=== PATIENT | female | born 1960 | race African-American/Black ===

== ENCOUNTER 2021-09-12 13:17 | Inpatient (IN) | payer SELFPAY ==
[~2021-09-12] VITALS: Ht 157.5 cm; Wt 60.2 kg
[~2021-09-12 13:17] MED LIST: OXYC1TAB15 PO
[2021-09-12 14:07] LABS: BILIRUBIN,URINE NEGATIVE (NEG); CLARITY,URINE CLOUDY; COLOR,URINE YELLOW; NITRITE,URINE NEGATIVE (NEG); PH,URINE 5.5 (<5.0-8.0); PROTEIN,URINE 30 mg/dL (NEG-TRACE); UROBILINOGEN,URINE 0.2 mg/dL (0.2 mg/dL)
[2021-09-12 14:17] LABS: BACTERIA,URINE 0 /HPF (0-FEW); RBC,URINE TNTC /HPF (0-2)
[2021-09-12 14:38] LABS: BASO % 0 % (0-3); EOS % 0 % (0-3); HEMATOCRIT 27.4 % (36.0-47.0); HEMOGLOBIN 8.5 g/dL (12.0-15.5); LYMPH # 0.7 x10^3/uL (1.0-4.8); LYMPH % 6 % (24-48); MEAN CORPUSCULAR HEMOGLOBIN 25 pg (25-35); MEAN CORPUSCULAR HGB CONC 31 g/dL (31-37); MEAN CORPUSCULAR VOLUME 80 fL (79-100); MONO # 0.8 x10^3/uL (0.0-1.1); MONO % 6 % (0-9); NEUT # 11.1 x10^3/uL (1.8-7.7); NEUT % 87 % (31-73); PLATELET COUNT 553 x10^3/uL (140-400); RED BLOOD COUNT 3.42 x10^6/uL (3.50-5.40); RED CELL DISTRIBUTION WIDTH 17.7 % (11.5-14.5); WHITE BLOOD COUNT 12.7 x10^3/uL (4.0-11.0)
[2021-09-12 14:52] LABS: ALBUMIN 2.6 g/dL (3.4-5.0); ALBUMIN/GLOBULIN RATIO 0.6 (1.0-1.7); CREATININE 1.4 mg/dL (0.6-1.0); GFR 46.4; MAGNESIUM 2.3 mg/dL (1.8-2.4); POTASSIUM 3.9 mmol/L (3.5-5.1); TOTAL BILIRUBIN 0.4 mg/dL (0.2-1.0); TOTAL PROTEIN 7.3 g/dL (6.4-8.2)
--- NOTE | 2021-09-12 14:56 | RAD ---
Exam: CT abdomen/pelvis without intravenous contrast Indication: Abdominal pain and bloating Comparison: CT abdomen pelvis 08/07/2018 Technique: Helical CT imaging performed of the abdomen and pelvis without the use of intravenous cont rast. Sagittal and coronal reformats were obtained. One or more of the following individualized dose reduction techniques were utilized for this examinat ion: 1. Automated exposure control 2. Adjustment of the mA and/or kV according to patient size 3. Use of iterative reconstruction technique. Findings: Inherently limited evaluation without intravenous contrast. Lower chest: Lung bases are clear. Heart is normal in size. Liver: Normal noncontrast appearance of the liver. Gallbladder/Biliary Tree: Normal. Pancreas: Normal. Spleen: Normal. Adrenal Glands: Normal. Kidneys/Ureters/Bladder: Kidneys are normal in size. There is mild bilateral hydronephrosis. No uroli thiasis. The bladder is markedly distended. Reproductive Organs: Uterus is anteverted. No definite adnexal mass. Stomach, small bowel, and colon: The stomach is normal. There is no small bowel obstruction. There is a right lower quadrant ostomy with a large parastomal hernia. Vasculature: Abdominal aorta is normal in caliber. Moderate calcified aortoiliac atherosclerosis. Lymph Nodes: No lymphadenopathy. Peritoneum and retroperitoneum: There is ascites in the right lower quadrant and pelvis. Bones: There is 8 mm anterolisthesis of L4 on L5. Severe disc space narrowing with endplate sclerosis and small osteophytes at L5-S1 and moderate to severe disc space narrowing at L4-L5. There is vinyl dipper ior endplate separation at both levels and small disc bulges resulting in severe left and mild right foraminal narrowing at both levels. Facet arthrosis is severe at L3-L4 and L4-L5. There is mild dextr oscoliosis of the lower thoracic spine. IMPRESSION: 1. Mild bilateral hydronephrosis and markedly distended urinary bladder without obstructing calculus . Correlate for urinary retention.. 2. Small volume ascites in the pelvis and right lower quadrant. 3. New right lower quadrant ostomy with large parastomal hernia. 4. Moderate calcified aortoiliac atherosclerosis. Electronically signed by: Yvette Wetzel MD (09/12/2021 2:53 PM) [id number]
--- NOTE | 2021-09-12 15:07 | PHYS DOC ---
Past Medical History Past Medical History: No Pertinent History Additional Past Medical Histor: Colostomy Past Surgical History: Other Additional Past Surgical Histo: colostomy Smoking Status: Never Smoker Alcohol Use: None Drug Use: None General Adult EDM: Chief Complaint: BLOOD IN URINE HPI: HPI: Patient is a 61 year old female who presents with hematuria. Patient states that symptoms started on Tuesday. Patient also reports abdominal cramping and a bloated feeling in her abdomen. Patient has a colostomy was placed in 2019. Patient denies pain with urination, burning, odor, itching, retention. Denies fever. No chest pain or shortness of breath. Denies any other medical history. Review of Systems: Review of Systems: ROS At least 10 ROS systems have been reviewed and are negative except as documented in the HPI. General: Negative except as outlined in HPI above. Skin: Negative except as outlined in HPI above. HEENT: Negative except as outlined in HPI above. Neck: Negative except as outlined in HPI above. Respiratory: Negative except as outlined in HPI above.. Cardiovascular: Negative except as outlined in HPI above. Abdomen: Negative except as outlined in HPI above. : Negative except as outlined in HPI above. Back/MSK: Negative except as outlined in HPI above. Neuro: Negative except as outlined in HPI above. Psych: Negative except as outlined in HPI above. Heart Score: C/O Chest Pain: No Risk Factors: Risk Factors: DM, Current or recent (<one month) smoker, HTN, HLP, family history of CAD, obesity. Risk Scores: Score 0 - 3: 2.5% MACE over next 6 weeks - Discharge Home Score 4 - 6: 20.3% MACE over next 6 weeks - Admit for Clinical Observation Score 7 - 10: 72.7% MACE over next 6 weeks - Early Invasive Strategies Allergies: Allergies: Allergies Coded Allergies Type Severity Reaction Last Updated Verified No Known Drug Allergies 08/08/18 No Physical Exam: PE: Constitutional: Well developed, well nourished, no acute distress, non-toxic appearance. [] HENT: Normocephalic, atraumatic, bilateral external ears normal, oropharynx moist, no oral exudates, nose normal. [] Eyes: PERRLA, EOMI, conjunctiva normal, no discharge. [] Neck: Normal range of motion, no tenderness, supple, no stridor. [] Cardiovascular:Heart rate regular rhythm, no murmur [] Lungs & Thorax: Bilateral breath sounds clear to auscultation [] Abdomen: Bowel sounds normal, distended, no tenderness, colostomy noted Skin: Warm, dry, no erythema, no rash. [] Back: No tenderness, no CVA tenderness. [] Extremities: No tenderness, no cyanosis, no clubbing, ROM intact, no edema. [] Neurologic: Alert and oriented X 3, normal motor function, normal sensory function, no focal deficits noted. [] Psychologic: Affect normal, judgement normal, mood normal. [] Current Patient Data: Labs: Laboratory Tests Test 09/12/21 13:38 09/12/21 14:26 Urine Collection Type Unknown Urine Color Yellow Urine Clarity Cloudy Urine pH 5.5 (<5.0-8.0) Urine Specific [place] 1.015 (1.000-1.030) Urine Protein 30 mg/dL (NEG-TRACE) Urine Glucose (UA) Negative mg/dL (NEG) Urine Ketones (Stick) Trace mg/dL (NEG) Urine Blood Large (NEG) Urine Nitrite Negative (NEG) Urine Bilirubin Negative (NEG) Urine Urobilinogen Dipstick 0.2 mg/dL (0.2 mg/dL) Urine Leukocyte Esterase Moderate (NEG) Urine RBC Tntc /HPF (0-2) Urine WBC 5-10 /HPF (0-4) Urine Squamous Epithelial Cells Mod /LPF Urine Bacteria 0 /HPF (0-FEW) Urine Mucus Slight /LPF White Blood Count 12.7 x10^3/uL (4.0-11.0) H Red Blood Count 3.42 x10^6/uL (3.50-5.40) L Hemoglobin 8.5 g/dL (12.0-15.5) L Hematocrit 27.4 % (36.0-47.0) L Mean Corpuscular Volume 80 fL (79-100) Mean Corpuscular Hemoglobin 25 pg (25-35) Mean Corpuscular Hemoglobin Concent 31 g/dL (31-37) Red Cell Distribution Width 17.7 % (11.5-14.5) H Platelet Count 553 x10^3/uL (140-400) H Neutrophils (%) (Auto) 87 % (31-73) H Lymphocytes (%) (Auto) 6 % (24-48) L Monocytes (%) (Auto) 6 % (0-9) Eosinophils (%) (Auto) 0 % (0-3) Basophils (%) (Auto) 0 % (0-3) Neutrophils # (Auto) 11.1 x10^3/uL (1.8-7.7) H Lymphocytes # (Auto) 0.7 x10^3/uL (1.0-4.8) L Monocytes # (Auto) 0.8 x10^3/uL (0.0-1.1) Eosinophils # (Auto) 0.0 x10^3/uL (0.0-0.7) Basophils # (Auto) 0.0 x10^3/uL (0.0-0.2) Laboratory Tests 09/12/21 14:26 Vital Signs: Vital Signs Date Time Temp Pulse Resp B/P (MAP) Pulse Ox O2 Delivery O2 Flow Rate FiO2 09/12/21 13:24 98.3 120 20 132/94 (107) 100 Room Air 98.3 EKG: EKG: Heart rate [address] elevation or depression. Read by Dr. Rodney. [] Radiology/Procedures: Radiology/Procedures: []Exam: CT abdomen/pelvis without intravenous contrast Indication: Abdominal pain and bloating Comparison: CT abdomen pelvis 08/07/2018 Technique: Helical CT imaging performed of the abdomen and pelvis without the use of intravenous contrast. Sagittal and coronal reformats were obtained. One or more of the following individualized dose reduction techniques were utilized for this examination: 1. Automated exposure control 2. Adjustment of the mA and/or kV according to patient size 3. Use of iterative reconstruction technique. Findings: Inherently limited evaluation without intravenous contrast. Lower chest: Lung bases are clear. Heart is normal in size. Liver: Normal noncontrast appearance of the liver. Gallbladder/Biliary Tree: Normal. Pancreas: Normal. Spleen: Normal. Adrenal Glands: Normal. Kidneys/Ureters/Bladder: Kidneys are normal in size. There is mild bilateral hydronephrosis. No urolithiasis. The bladder is markedly distended. Reproductive Organs: Uterus is anteverted. No definite adnexal mass. Stomach, small bowel, and colon: The stomach is normal. There is no small bowel obstruction. There is a right lower quadrant ostomy with a large parastomal hernia. Vasculature: Abdominal aorta is normal in caliber. Moderate calcified aortoiliac atherosclerosis. Lymph Nodes: No lymphadenopathy. Peritoneum and retroperitoneum: There is ascites in the right lower quadrant and pelvis. Bones: There is 8 mm anterolisthesis of L4 on L5. Severe disc space narrowing with endplate sclerosis and small osteophytes at L5-S1 and moderate to severe disc space narrowing at L4-L5. There is posterior endplate separation at both levels and small disc bulges resulting in severe left and mild right foraminal narrowing at both levels. Facet arthrosis is severe at L3-L4 and L4-L5. There is mild dextroscoliosis of the lower thoracic spine. IMPRESSION: 1. Mild bilateral hydronephrosis and markedly distended urinary bladder without obstructing calculus. Correlate for urinary retention.. 2. Small volume ascites in the pelvis and right lower quadrant. 3. New right lower quadrant ostomy with large parastomal hernia. 4. Moderate calcified aortoiliac atherosclerosis. Electronically signed by: Yvette Wetzel MD (09/12/2021 2:53 PM) [id number] DICTATED and SIGNED BY: YVETTE WETZEL MD DATE: 09/12/21 [id number] 0 Course & Med Decision Making: Course & Med Decision Making Pertinent Labs and Imaging studies reviewed. (See chart for details) [] 61-year-old female who presents with hematuria, abdominal pain and cramping. Work-up in ER consisted of labs, urinalysis, CT abdomen and pelvis. Urine is positive for leuks and large blood. Patient given Rocephin. CT abdomen pelvis showed urinary retention. Indwelling catheter placed. Pelvic ultrasound ordered to rule out any abnormalities. Patient's calcium was elevated at 12.1. BUN 21, creatinine 1.4. Platelets 553. NS bolus given. Discussed all results with patient. Contacted Dr. Worley, hospitalist. Dr. Worley was going to admit patient for urinary retention, UTI, hypercalcemia. Patient is appreciative and okay with admission plan. Pedro Disclaimer: Pedro Disclaimer: This electronic medical record was generated, in whole or in part, using a voice recognition dictation system. Departure Departure Impression: Primary Impression: Urinary retention Additional Impressions: UTI (urinary tract infection) Qualified Codes: N30.01 - Acute cystitis with hematuria Hypercalcemia Disposition: 09 ADMITTED INPATIENT Admitting Physician: SHON Condition: STABLE Referrals: NO PCP (PCP) RODDY BEAVER APRN Sep 12, 2021 15:07
[2021-09-12] MEDS ORDERED: cefTRIAXone IV Push 1 GM VIAL. IVP ONE (15:15)
[2021-09-12 15:26] LABS: CALCIUM 12.1 mg/dL (8.5-10.1)
[2021-09-12] MEDS ORDERED: IV NORMAL SALINE 1000ML BAG 1,000 ML IV ONE (15:30)
[2021-09-12] MEDS ORDERED: diphenhydrAMINE 50 MG/ML VIAL IVP PRN (16:30)
[2021-09-12] MEDS ORDERED: LORazepam 0.5 MG TABLET PO PRN (16:30)
[2021-09-12] MEDS ORDERED: ZOLPIDEM 5 MG TABLET. PO PRN (16:30)
[2021-09-12] MEDS ORDERED: DOCUSATE SODIUM 100 MG CAPSULE. PO PRN (16:30)
[2021-09-12] MEDS ORDERED: ACETAMINOPHEN 325 MG TABLET. PO PRN (16:30)
[2021-09-12] MEDS ORDERED: PROCHLORPERAZINE 10 MG/2 ML VIAL. IV PRN (16:30)
[2021-09-12] MEDS ORDERED: SENNOSIDES 8.6 MG TABLET PO PRN (16:30)
[2021-09-12] MEDS ORDERED: ONDANSETRON PF 4 MG/2 ML VIAL. IVP PRN (16:30)
[2021-09-12] MEDS ORDERED: diphenhydrAMINE HCL 25 MG CAPSULE PO PRN ×2 (16:30)
[2021-09-12] MEDS ORDERED: DEXTROSE 50% 25 GM / 50ML DISP.SYRIN. IV PRN (16:30)
--- NOTE | 2021-09-12 16:43 | PDOC1 ---
History and Physical Date of Service: DOS: DATE: 09/12/21 TIME: 16:15 Chief Complaint: Chief Complain: Bloody urine History of Present Illness: HPI: 61 year old female who presents with hematuria. Patient states that symptoms started on Tuesday. Patient also reports abdominal cramping and a bloated feeling in her abdomen. Patient has a colostomy was placed in 2019 for colonic obstruction. Denies any weight loss or chemotherapy. Pathology from surgery actually showed no evidence of malignancy. Patient denies pain with urination, burning, odor, itching, retention. Denies fever. No chest pain or shortness of breath. Denies any other medical history. Past Medical/Surgical History: PMH/PSH: Past Medical History: Diverticulitis, colovesicular fistula Past surgical history: Laparoscopic converted to open sigmoid colectomy with end colostomy, Raffi's procedure and repair of colovesicular fistula Allergies: Allergies: Coded Allergies: No Known Drug Allergies (Unverified , 08/08/18) Family History: Family History: Reviewed with no relevant findings in the chart Social History: Social History: Smoking Status: Never Smoker Alcohol Use: None Drug Use: None Current Medications: Current Medications Current Medications Ceftriaxone Sodium (Rocephin) 1 gm 1X ONCE IVP ; Start 09/12/21 at 15:15; Stop 09/12/21 at 15:16; Status DC Sodium Chloride 1,000 ml @ 1,000 mls/hr 1X ONCE IV ; Start 09/12/21 at 15:30; Stop 09/12/21 at 16:29 Sodium Chloride 1,000 ml @ 75 mls/hr [id number] IV ; Start 09/12/21 at 16:15; Stop 09/13/21 at 16:14 Active Scripts Active Percocet 5-325 Mg Tablet (Oxycodone/Acetaminophen) 1 Each Tablet 2 Tab PO PRN Q4HRS PRN ROS: Review of Systems Review of System REVIEW OF SYSTEMS: GENERAL: Denies weakness SKIN: No bruising, hair changes or rashes. EYES: No blurred, double or loss of vision. NOSE AND THROAT: No history of nosebleeds, hoarseness or sore throat. HEART: No history of palpitations, chest pain or shortness of breath on exertion. LUNGS: Denies cough, hemoptysis, wheezing or shortness of breath. GASTROINTESTINAL: Denies changes in appetite, nausea, vomiting, diarrhea or constipation. GENITOURINARY: No history of frequency, urgency, hesitancy or nocturia. NEUROLOGIC: Denies history of numbness, tingling, or tremor. PSYCHIATRIC: No history of panic, anxiety or depression. ENDOCRINE: No history of heat or cold intolerance, polyuria or polydipsia. EXTREMITIES: Denies joint pain, pain on walking or stiffness. Physical Exam: Vital Signs: Vital Signs Date Time Temp Pulse Resp B/P (MAP) Pulse Ox O2 Delivery O2 Flow Rate FiO2 09/12/21 13:24 98.3 120 20 132/94 (107) 100 Room Air 98.3 Physcial Exam: GEN: No apparent distress. Alert and oriented HEENT: Normal cephalic, atraumatic, external auditory canals are patent EYES: Extraocular muscles are intact, pupil are equally round and reactive to light and accommodation MUSCULOSKELETAL: Well developed , well nourished, good range of motion ENDOCRINE: No thyromegaly was palpated LYMPHATICS: No cervical chain or axillary nodes were noted HEMATOPOIETIC: No bruising NECK: Supple, no JVD, no thyromegaly was noted LUNGS: Clear to auscultation in all lung mustafa without rhonchi or wheezing HEART: RRR, S!, S2 present. Peripheral pulses intact, no obvious murmurs noted ABDOMEN: Soft, nontender. Positive bowel sounds, no organomegaly, normal bowel sounds EXTREMITIES: Without clubbing, cyanosis, or edema. Pedal pulses intact. Negative Homans sign NEUROLOGIC: Normal speech and tone. A&O x 3, moves all extremities, no obvious focal deficits PSYCHIATRIC: Normal affect, normal mood. Stable SKIN: No ulcerations or rashes, good skin turgor, no jaundice VASCULAR: Good capillary refill, neurovascular bundle appears to be intact Labs: Labs: Laboratory Tests Test 09/12/21 13:38 09/12/21 14:26 Urine Collection Type Unknown Urine Color Yellow Urine Clarity Cloudy Urine pH 5.5 (<5.0-8.0) Urine Specific [place] 1.015 (1.000-1.030) Urine Protein 30 mg/dL (NEG-TRACE) Urine Glucose (UA) Negative mg/dL (NEG) Urine Ketones (Stick) Trace mg/dL (NEG) Urine Blood Large (NEG) Urine Nitrite Negative (NEG) Urine Bilirubin Negative (NEG) Urine Urobilinogen Dipstick 0.2 mg/dL (0.2 mg/dL) Urine Leukocyte Esterase Moderate (NEG) Urine RBC Tntc /HPF (0-2) Urine WBC 5-10 /HPF (0-4) Urine Squamous Epithelial Cells Mod /LPF Urine Bacteria 0 /HPF (0-FEW) Urine Mucus Slight /LPF White Blood Count 12.7 x10^3/uL (4.0-11.0) Red Blood Count 3.42 x10^6/uL (3.50-5.40) Hemoglobin 8.5 g/dL (12.0-15.5) Hematocrit 27.4 % (36.0-47.0) Mean Corpuscular Volume 80 fL (79-100) Mean Corpuscular Hemoglobin 25 pg (25-35) Mean Corpuscular Hemoglobin Concent 31 g/dL (31-37) Red Cell Distribution Width 17.7 % (11.5-14.5) Platelet Count 553 x10^3/uL (140-400) Neutrophils (%) (Auto) 87 % (31-73) Lymphocytes (%) (Auto) 6 % (24-48) Monocytes (%) (Auto) 6 % (0-9) Eosinophils (%) (Auto) 0 % (0-3) Basophils (%) (Auto) 0 % (0-3) Neutrophils # (Auto) 11.1 x10^3/uL (1.8-7.7) Lymphocytes # (Auto) 0.7 x10^3/uL (1.0-4.8) Monocytes # (Auto) 0.8 x10^3/uL (0.0-1.1) Eosinophils # (Auto) 0.0 x10^3/uL (0.0-0.7) Basophils # (Auto) 0.0 x10^3/uL (0.0-0.2) Sodium Level 138 mmol/L (136-145) Potassium Level 3.9 mmol/L (3.5-5.1) Chloride Level 101 mmol/L (98-107) Carbon Dioxide Level 28 mmol/L (21-32) Anion Gap 9 (6-14) Blood Urea Nitrogen 21 mg/dL (7-20) Creatinine 1.4 mg/dL (0.6-1.0) Estimated GFR (Cockcroft-Gault) 46.4 BUN/Creatinine Ratio 15 (6-20) Glucose Level 100 mg/dL (70-99) Calcium Level 12.1 mg/dL (8.5-10.1) Magnesium Level 2.3 mg/dL (1.8-2.4) Total Bilirubin 0.4 mg/dL (0.2-1.0) Aspartate Amino Transf (AST/SGOT) 25 U/L (15-37) Alanine Aminotransferase (ALT/SGPT) 20 U/L (14-59) Alkaline Phosphatase 64 U/L (46-116) Total Protein 7.3 g/dL (6.4-8.2) Albumin 2.6 g/dL (3.4-5.0) Albumin/Globulin Ratio 0.6 (1.0-1.7) Laboratory Tests Test 09/12/21 13:38 09/12/21 14:26 Urine Collection Type Unknown Urine Color Yellow Urine Clarity Cloudy Urine pH 5.5 (<5.0-8.0) Urine Specific [place] 1.015 (1.000-1.030) Urine Protein 30 mg/dL (NEG-TRACE) Urine Glucose (UA) Negative mg/dL (NEG) Urine Ketones (Stick) Trace mg/dL (NEG) Urine Blood Large (NEG) Urine Nitrite Negative (NEG) Urine Bilirubin Negative (NEG) Urine Urobilinogen Dipstick 0.2 mg/dL (0.2 mg/dL) Urine Leukocyte Esterase Moderate (NEG) Urine RBC Tntc /HPF (0-2) Urine WBC 5-10 /HPF (0-4) Urine Squamous Epithelial Cells Mod /LPF Urine Bacteria 0 /HPF (0-FEW) Urine Mucus Slight /LPF White Blood Count 12.7 x10^3/uL (4.0-11.0) Red Blood Count 3.42 x10^6/uL (3.50-5.40) Hemoglobin 8.5 g/dL (12.0-15.5) Hematocrit 27.4 % (36.0-47.0) Mean Corpuscular Volume 80 fL (79-100) Mean Corpuscular Hemoglobin 25 pg (25-35) Mean Corpuscular Hemoglobin Concent 31 g/dL (31-37) Red Cell Distribution Width 17.7 % (11.5-14.5) Platelet Count 553 x10^3/uL (140-400) Neutrophils (%) (Auto) 87 % (31-73) Lymphocytes (%) (Auto) 6 % (24-48) Monocytes (%) (Auto) 6 % (0-9) Eosinophils (%) (Auto) 0 % (0-3) Basophils (%) (Auto) 0 % (0-3) Neutrophils # (Auto) 11.1 x10^3/uL (1.8-7.7) Lymphocytes # (Auto) 0.7 x10^3/uL (1.0-4.8) Monocytes # (Auto) 0.8 x10^3/uL (0.0-1.1) Eosinophils # (Auto) 0.0 x10^3/uL (0.0-0.7) Basophils # (Auto) 0.0 x10^3/uL (0.0-0.2) Sodium Level 138 mmol/L (136-145) Potassium Level 3.9 mmol/L (3.5-5.1) Chloride Level 101 mmol/L (98-107) Carbon Dioxide Level 28 mmol/L (21-32) Anion Gap 9 (6-14) Blood Urea Nitrogen 21 mg/dL (7-20) Creatinine 1.4 mg/dL (0.6-1.0) Estimated GFR (Cockcroft-Gault) 46.4 BUN/Creatinine Ratio 15 (6-20) Glucose Level 100 mg/dL (70-99) Calcium Level 12.1 mg/dL (8.5-10.1) Magnesium Level 2.3 mg/dL (1.8-2.4) Total Bilirubin 0.4 mg/dL (0.2-1.0) Aspartate Amino Transf (AST/SGOT) 25 U/L (15-37) Alanine Aminotransferase (ALT/SGPT) 20 U/L (14-59) Alkaline Phosphatase 64 U/L (46-116) Total Protein 7.3 g/dL (6.4-8.2) Albumin 2.6 g/dL (3.4-5.0) Albumin/Globulin Ratio 0.6 (1.0-1.7) Images: Images PROCEDURE: CT ABDOMEN PELVIS WO CONTRAST Exam: CT abdomen/pelvis without intravenous contrast Indication: Abdominal pain and bloating Comparison: CT abdomen pelvis 08/07/2018 Technique: Helical CT imaging performed of the abdomen and pelvis without the use of intravenous contrast. Sagittal and coronal reformats were obtained. One or more of the following individualized dose reduction techniques were utilized for this examination: 1. Automated exposure control 2. Adjustment of the mA and/or kV according to patient size 3. Use of iterative reconstruction technique. Findings: Inherently limited evaluation without intravenous contrast. Lower chest: Lung bases are clear. Heart is normal in size. Liver: Normal noncontrast appearance of the liver. Gallbladder/Biliary Tree: Normal. Pancreas: Normal. Spleen: Normal. Adrenal Glands: Normal. Kidneys/Ureters/Bladder: Kidneys are normal in size. There is mild bilateral hydronephrosis. No urolithiasis. The bladder is markedly distended. Reproductive Organs: Uterus is anteverted. No definite adnexal mass. Stomach, small bowel, and colon: The stomach is normal. There is no small bowel obstruction. There is a right lower quadrant ostomy with a large parastomal hernia. Vasculature: Abdominal aorta is normal in caliber. Moderate calcified aortoiliac atherosclerosis. Lymph Nodes: No lymphadenopathy. Peritoneum and retroperitoneum: There is ascites in the right lower quadrant and pelvis. Bones: There is 8 mm anterolisthesis of L4 on L5. Severe disc space narrowing with endplate sclerosis and small osteophytes at L5-S1 and moderate to severe disc space narrowing at L4-L5. There is posterior endplate separation at both levels and small disc bulges resulting in severe left and mild right foraminal narrowing at both levels. Facet arthrosis is severe at L3-L4 and L4-L5. There is mild dextroscoliosis of the lower thoracic spine. IMPRESSION: 1. Mild bilateral hydronephrosis and markedly distended urinary bladder without obstructing calculus. Correlate for urinary retention.. 2. Small volume ascites in the pelvis and right lower quadrant. 3. New right lower quadrant ostomy with large parastomal hernia. 4. Moderate calcified aortoiliac atherosclerosis. Assessment/Plan Assessment/Plan Problem List: Hematuria Anemia secondary to acute blood loss Urinary retention OSCAR due to likely postobstructive uropathy Bilateral hydronephrosis Severe hypercalcemia, possible malignancy Parastomal hernia History of colostomy for colonic obstruction Admit to hospitalist for further management Urology consult for hematuria and urinary retention General surgery consult for parastomal hernia Continue IV fluids Trend calcium, if remains elevated would consider dose of calcitonin Would obtain CT of the chest chest to complete staging Contraindicated for DVT prophylaxis Regular diet CODE STATUS full Discussed with RN and SW Disposition inpatient management as above DPOA: Kamini Araiza Justifications for Admission Other Justification SHIRA PA MD Sep 12, 2021 16:43
[2021-09-12 19:00] VITALS: BP 177/95
[2021-09-12] MEDS: IV NORMAL SALINE 1000ML BAG 1,000 ML IV SCH ×2 (20:08)
--- NOTE | 2021-09-12 21:43 | RAD ---
CT THORAX WO History: Pain. Concern for malignancy. Technique: Noncontrast CT of the chest was performed. Coronal and sagittal reconstructions were perfo rmed. Exposure: One or more of the following individualized dose reduction techniques were utilized for thi s examination: 1. Automated exposure control 2. Adjustment of the mA and/or kV according to patient size 3. Use of iterative reconstruction technique. Comparison: CT abdomen pelvis September 12, 2021. Findings: Chest: No pathologic lymphadenopathy. Mild atheromatous plaque within the aorta. Coronary artery calc ifications. No consolidation or pleural effusion. No pneumothorax. 3 mm left lower lobe pulmonary nodule (series 2 image 42). 3 mm right middle lobe pulmonary nodule (i mage 34). Upper abdomen: Unchanged mild bilateral hydronephrosis. Partially imaged right abdominal wall hernia better characterized on prior CT abdomen and pelvis. Bones: No pathologic osseous lesions. Impression: 1. No acute thoracic pathology. 2. Small pulmonary nodules. Recommend one-year follow-up chest CT without contrast if high risk. Electronically signed by: Eric Gupta DO (09/12/2021 9:41 PM) [facility] CENTERJAIMIE
--- NOTE | 2021-09-12 22:13 | EKG ---
[facility] [address] [place] [address] Test Date: 2021-09-12 Test Time: 14:18:25 Pat Name: JAMES DILLON Department: Room: [facility] Gender: F Environmental Conflict Manager: : 1960 Requested By: RODDY BEAVER Order Number: [id number] Reading MD: Shawn James Measurements Intervals [place] Rate: 90 P: 146 WY: 140 QRS: 178 QRSD: 82 T: 155 QT: 408 QTc: 504 Interpretive Statements SINUS RHYTHM T ABNORMALITY IN ANTERIOR LEADS Electronically Signed On 09-13-2021 9:21:21 WAREHOUSE CLERK by Shawn James
[2021-09-12 23:00] VITALS: BP 117/69
[2021-09-13] MEDS: IV NORMAL SALINE 1000ML BAG 1,000 ML IV SCH ×3 (00:26→12:30)
[2021-09-13 01:31] LABS: CALCIUM 10.4 mg/dL (8.5-10.1); GFR 68.4
[2021-09-13 01:34] LABS: POTASSIUM 2.8 mmol/L (3.5-5.1)
[2021-09-13] MEDS ORDERED: ELECTROLYTE (NON-ICU) PROTOCOL. MC PRN ×3 (02:15)
[2021-09-13] MEDS: POTASSIUM CHLORIDE 20 MEQ TABLET.ER. PO SCH ×2 (02:26→06:21)
[2021-09-13 03:00] VITALS: BP 138/77
[2021-09-13 07:00] VITALS: BP 157/91
[2021-09-13 08:38] LABS: CALCIUM 10.5 mg/dL (8.5-10.1); CREATININE 0.7 mg/dL (0.6-1.0); GFR 103.3; POTASSIUM 3.3 mmol/L (3.5-5.1)
--- NOTE | 2021-09-13 09:00 | PDOC2 ---
UROLOGY CONSULT Date of Service DATE: 09/13/21 TIME: 08:49 Reason for Consult Reason for Consult: hematuria/urinary retention Identification/Chief Complaint Chief Complaint retention History of Present Illness Reason for Visit: 61 year old female presented to the ER on 09/12/2021 with hematuria and urinary retention. Patient states that she started feeling bloated and cramping on Tuesday (09/07/2021). States that she has a colostomy in place and has not had output from it since then. Denies any urological history, denies frequency, urgency, dysuria, fevers, chills. UA collected in ER with large blood and pos for leuks. Negative for nitrite. CT A/P completed without contrast showing bilateral hydro and a distended bladder. Cummings catheter placed for bladder decompression and retention. Patient resting in bed comfortable at this time. No complaints. Cummings catheter with clear yellow drainage. Past Medical History Cardiovascular: No pertinent hx Pulmonary: No pertinent hx GI: No pertinent hx, Constipation Heme/Onc: No pertinent hx Hepatobiliary: No pertinent hx Psych: No pertinent hx Rheumatologic: No pertinent hx Infectious disease: No pertinent hx Past Surgical History Past Surgical History: Other (colostomy placement), No pertinent history Family History Family History: No Significant Social History No ALCOHOL: none Drugs: None Current Medications Current Medications Current Medications Acetaminophen (Tylenol) 650 mg PRN Q4HRS PRN PO TEMP OVER 100.4F OR MILD PAIN; Start 09/12/21 at 16:30 Ceftriaxone Sodium (Rocephin) 1 gm 1X ONCE IVP Last administered on 09/12/21at 16:53; Start 09/12/21 at 15:15; Stop 09/12/21 at 15:16; Status DC Dextrose (Dextrose 50%-Water Syringe) 12.5 gm PRN Q15MIN PRN IV SEE COMMENTS; Start 09/12/21 at 16:30 Diphenhydramine HCl (Benadryl) 25 mg PRN Q6HRS PRN IVP ITCHING; Start 09/12/21 at 16:30 Diphenhydramine HCl (Benadryl) 25 mg PRN Q6HRS PRN PO ITCHING; Start 09/12/21 at 16:30 Diphenhydramine HCl (Benadryl) 25 mg PRN QHS PRN PO INSOMNIA, 1st CHOICE; Start 09/12/21 at 16:30 Docusate Sodium (Colace) 100 mg PRN DAILY PRN PO HARD STOOLS; Start 09/12/21 at 16:30 Info (Non-Icu Electrolyte Protocol) 1 ea CONT PRN PRN MC PER PROTOCOL; Start 09/13/21 at 02:15 Info (Non-Icu Electrolyte Protocol) 1 ea CONT PRN PRN MC PER PROTOCOL; Start 09/13/21 at 02:15; Status UNV Info (Non-Icu Electrolyte Protocol) 1 ea CONT PRN PRN MC PER PROTOCOL; Start 09/13/21 at 02:15; Status UNV Lorazepam (Ativan Inj) 0.25 mg PRN Q4HRS PRN IV ANXIETY / AGITATION; Start 09/12/21 at 16:30 Lorazepam (Ativan) 0.5 mg PRN Q6HRS PRN PO ANXIETY / AGITATION; Start 09/12/21 at 16:30 Ondansetron HCl (Zofran) 4 mg PRN Q6HRS PRN IVP NAUSEA/VOMITING, 1st CHOICE; Start 09/12/21 at 16:30 Potassium Chloride (Klor-Con) 40 meq Q4H PO Last administered on 09/13/21at 06:21; Start 09/13/21 at 02:30; Stop 09/13/21 at 06:31; Status DC Prochlorperazine Edisylate (Compazine) 10 mg PRN Q6HRS PRN IV NAUSEA/VOMITING, 2nd CHOICE; Start 09/12/21 at 16:30 Sennosides (Senna) 17.2 mg PRN BID PRN PO CONSTIPATION; Start 09/12/21 at 16:30 Sodium Chloride 1,000 ml @ 75 mls/hr [id number] IV Last administered on 09/12/21at 20:08; Start 09/12/21 at 16:15; Stop 09/13/21 at 16:14 Sodium Chloride 1,000 ml @ 100 mls/hr Q10H IV Last administered on 09/13/21at 00:26; Start 09/12/21 at 16:30 Sodium Chloride 1,000 ml @ 1,000 mls/hr 1X ONCE IV Last administered on 09/12/21at 16:51; Start 09/12/21 at 15:30; Stop 09/12/21 at 16:29; Status DC Zolpidem Tartrate (Ambien) 2.5 mg PRN QHS PRN PO INSOMNIA, 2nd CHOICE; Start 09/12/21 at 16:30 Allergies Allergies: Coded Allergies: No Known Drug Allergies (Unverified , 08/08/18) ROS Review Of Systems: CONSTITUTIONAL: No fever or chills SKIN: No rash or itching CARDIOVASCULAR: No chest pain, syncope, palpitations, or edema RESPIRATORY: No SOB or cough GASTROINTESTINAL: No nausea, vomiting. Constipation. NEUROLOGICAL: No headaches or weakness ENDOCRINE: No cold or heat intolerance GENITOURINARY: No urgency or frequency of urination MUSCULOSKELETAL: No back pain or joint pain PSYCHIATRIC: No anxiety or depression Physical Exam Physical Exam: General: Pleasant, no acute distress, well groomed Eyes: conjunctiva anicteric, eyes full range of motion ENT: moist oral mucosa, normal dentition Neck: Trachea midline, no masses Respiratory: unlabored breathing, not using accessory muscles, no crackles or wheezes Abdomen: nontender, nondistended, no hepatosplenomegaly, no masses. Colostomy in place. Skin: no rashes or skin lesions on visualized skin Psych: normal mood, affect. Alert and oriented x 3. : Cummings catheter in place draining well with clear yellow urine. Vitals VITALS Vital Signs Date Time Temp Pulse Resp B/P (MAP) Pulse Ox O2 Delivery O2 Flow Rate FiO2 09/13/21 03:00 99.1 85 14 138/77 (97) 96 Room Air 99.1 Labs Labs Laboratory Tests Test 09/12/21 13:38 09/12/21 14:26 09/13/21 01:00 09/13/21 06:20 Urine Collection Type Unknown Urine Color Yellow Urine Clarity Cloudy Urine pH 5.5 (<5.0-8.0) Urine Specific Sunol 1.015 (1.000-1.030) Urine Protein 30 mg/dL (NEG-TRACE) Urine Glucose (UA) Negative mg/dL (NEG) Urine Ketones (Stick) Trace mg/dL (NEG) Urine Blood Large (NEG) Urine Nitrite Negative (NEG) Urine Bilirubin Negative (NEG) Urine Urobilinogen Dipstick 0.2 mg/dL (0.2 mg/dL) Urine Leukocyte Esterase Moderate (NEG) Urine RBC Tntc /HPF (0-2) Urine WBC 5-10 /HPF (0-4) Urine Squamous Epithelial Cells Mod /LPF Urine Bacteria 0 /HPF (0-FEW) Urine Mucus Slight /LPF White Blood Count 12.7 x10^3/uL (4.0-11.0) Red Blood Count 3.42 x10^6/uL (3.50-5.40) Hemoglobin 8.5 g/dL (12.0-15.5) Hematocrit 27.4 % (36.0-47.0) Mean Corpuscular Volume 80 fL (79-100) Mean Corpuscular Hemoglobin 25 pg (25-35) Mean Corpuscular Hemoglobin Concent 31 g/dL (31-37) Red Cell Distribution Width 17.7 % (11.5-14.5) Platelet Count 553 x10^3/uL (140-400) Neutrophils (%) (Auto) 87 % (31-73) Lymphocytes (%) (Auto) 6 % (24-48) Monocytes (%) (Auto) 6 % (0-9) Eosinophils (%) (Auto) 0 % (0-3) Basophils (%) (Auto) 0 % (0-3) Neutrophils # (Auto) 11.1 x10^3/uL (1.8-7.7) Lymphocytes # (Auto) 0.7 x10^3/uL (1.0-4.8) Monocytes # (Auto) 0.8 x10^3/uL (0.0-1.1) Eosinophils # (Auto) 0.0 x10^3/uL (0.0-0.7) Basophils # (Auto) 0.0 x10^3/uL (0.0-0.2) Sodium Level 138 mmol/L (136-145) 139 mmol/L (136-145) 142 mmol/L (136-145) Potassium Level 3.9 mmol/L (3.5-5.1) 2.8 mmol/L (3.5-5.1) 3.3 mmol/L (3.5-5.1) Chloride Level 101 mmol/L (98-107) 104 mmol/L (98-107) 106 mmol/L (98-107) Carbon Dioxide Level 28 mmol/L (21-32) 32 mmol/L (21-32) 29 mmol/L (21-32) Anion Gap 9 (6-14) 3 (6-14) 7 (6-14) Blood Urea Nitrogen 21 mg/dL (7-20) 18 mg/dL (7-20) 13 mg/dL (7-20) Creatinine 1.4 mg/dL (0.6-1.0) 1.0 mg/dL (0.6-1.0) 0.7 mg/dL (0.6-1.0) Estimated GFR (Cockcroft-Gault) 46.4 68.4 103.3 BUN/Creatinine Ratio 15 (6-20) Glucose Level 100 mg/dL (70-99) 110 mg/dL (70-99) 78 mg/dL (70-99) Calcium Level 12.1 mg/dL (8.5-10.1) 10.4 mg/dL (8.5-10.1) 10.5 mg/dL (8.5-10.1) Magnesium Level 2.3 mg/dL (1.8-2.4) Total Bilirubin 0.4 mg/dL (0.2-1.0) Aspartate Amino Transf (AST/SGOT) 25 U/L (15-37) Alanine Aminotransferase (ALT/SGPT) 20 U/L (14-59) Alkaline Phosphatase 64 U/L (46-116) Total Protein 7.3 g/dL (6.4-8.2) Albumin 2.6 g/dL (3.4-5.0) Albumin/Globulin Ratio 0.6 (1.0-1.7) Laboratory Tests Test 09/12/21 13:38 09/12/21 14:26 09/13/21 01:00 09/13/21 06:20 Urine Collection Type Unknown Urine Color Yellow Urine Clarity Cloudy Urine pH 5.5 (<5.0-8.0) Urine Specific Sunol 1.015 (1.000-1.030) Urine Protein 30 mg/dL (NEG-TRACE) Urine Glucose (UA) Negative mg/dL (NEG) Urine Ketones (Stick) Trace mg/dL (NEG) Urine Blood Large (NEG) Urine Nitrite Negative (NEG) Urine Bilirubin Negative (NEG) Urine Urobilinogen Dipstick 0.2 mg/dL (0.2 mg/dL) Urine Leukocyte Esterase Moderate (NEG) Urine RBC Tntc /HPF (0-2) Urine WBC 5-10 /HPF (0-4) Urine Squamous Epithelial Cells Mod /LPF Urine Bacteria 0 /HPF (0-FEW) Urine Mucus Slight /LPF White Blood Count 12.7 x10^3/uL (4.0-11.0) Red Blood Count 3.42 x10^6/uL (3.50-5.40) Hemoglobin 8.5 g/dL (12.0-15.5) Hematocrit 27.4 % (36.0-47.0) Mean Corpuscular Volume 80 fL (79-100) Mean Corpuscular Hemoglobin 25 pg (25-35) Mean Corpuscular Hemoglobin Concent 31 g/dL (31-37) Red Cell Distribution Width 17.7 % (11.5-14.5) Platelet Count 553 x10^3/uL (140-400) Neutrophils (%) (Auto) 87 % (31-73) Lymphocytes (%) (Auto) 6 % (24-48) Monocytes (%) (Auto) 6 % (0-9) Eosinophils (%) (Auto) 0 % (0-3) Basophils (%) (Auto) 0 % (0-3) Neutrophils # (Auto) 11.1 x10^3/uL (1.8-7.7) Lymphocytes # (Auto) 0.7 x10^3/uL (1.0-4.8) Monocytes # (Auto) 0.8 x10^3/uL (0.0-1.1) Eosinophils # (Auto) 0.0 x10^3/uL (0.0-0.7) Basophils # (Auto) 0.0 x10^3/uL (0.0-0.2) Sodium Level 138 mmol/L (136-145) 139 mmol/L (136-145) 142 mmol/L (136-145) Potassium Level 3.9 mmol/L (3.5-5.1) 2.8 mmol/L (3.5-5.1) 3.3 mmol/L (3.5-5.1) Chloride Level 101 mmol/L (98-107) 104 mmol/L (98-107) 106 mmol/L (98-107) Carbon Dioxide Level 28 mmol/L (21-32) 32 mmol/L (21-32) 29 mmol/L (21-32) Anion Gap 9 (6-14) 3 (6-14) 7 (6-14) Blood Urea Nitrogen 21 mg/dL (7-20) 18 mg/dL (7-20) 13 mg/dL (7-20) Creatinine 1.4 mg/dL (0.6-1.0) 1.0 mg/dL (0.6-1.0) 0.7 mg/dL (0.6-1.0) Estimated GFR (Cockcroft-Gault) 46.4 68.4 103.3 BUN/Creatinine Ratio 15 (6-20) Glucose Level 100 mg/dL (70-99) 110 mg/dL (70-99) 78 mg/dL (70-99) Calcium Level 12.1 mg/dL (8.5-10.1) 10.4 mg/dL (8.5-10.1) 10.5 mg/dL (8.5-10.1) Magnesium Level 2.3 mg/dL (1.8-2.4) Total Bilirubin 0.4 mg/dL (0.2-1.0) Aspartate Amino Transf (AST/SGOT) 25 U/L (15-37) Alanine Aminotransferase (ALT/SGPT) 20 U/L (14-59) Alkaline Phosphatase 64 U/L (46-116) Total Protein 7.3 g/dL (6.4-8.2) Albumin 2.6 g/dL (3.4-5.0) Albumin/Globulin Ratio 0.6 (1.0-1.7) Assessment/Plan Assessment/Plan ---Hematuria On assessment, urine is clear yellow. CT A/P with bilateral hydro and distended bladder. No evidence of stones. UA with large blood, pos leuks neg nitrites. Will need cystoscopy outpatient to complete hematuria workup. Hgb stable at 8.5 on admission. Recheck today was 7.1. Doubtful that significant hemoglobin drop is due to patients hematuria as urine output is clear and yellow. Will defer to to primary if they want an infusion. Patient not symptomatic at this time. ---Retention Cummings in place. Most likely caused from constipation. Bowel management per primary. Once constipation resolved, can attempt voiding trial as urine is clear. D/w nursing. ---UTI Possible UTI on UA, could be contaminated. Recommended continued antibiotics until culture results. Culture specific antibiotics for 10-14 days. ---OSCAR Cr on admission was 1.4. Improved to 1 following bladder decompression. Patient will need to follow up with urology for cytoscopy. Discussed this with patient and she is agreeable. Call urology with any concerns. ILAN ABAD APRN Sep 13, 2021 09:00
--- NOTE | 2021-09-13 09:42 | PDOC2 ---
CONSULT Date of Consult Date of Consult DATE: 09/13/21 TIME: 09:38 Reason for Consult Reason for Consult: Parastomal hernia Referring Physician Referring Physician: Meir Identification/Chief Complaint Chief Complaint Blood in the urine decreased ostomy output Source Source: Chart review, Patient History of Present Illness Reason for Visit: 61-year-old female who is status post Holly's procedure for colovesical fistula sometime ago states that this week she started developing discoloration of her urine and difficulty with passing urine that is why she came to the hospital. Cummings catheter was placed at that time she is resting comfortably in bed today. She also states that she is having decreased output from her ostomy although she denies any abdominal pain no nausea vomiting has had no decrease in her appetite Past Medical History Cardiovascular: No pertinent hx Pulmonary: No pertinent hx GI: No pertinent hx, Constipation Heme/Onc: No pertinent hx Hepatobiliary: No pertinent hx Psych: No pertinent hx Rheumatologic: No pertinent hx Infectious disease: No pertinent hx Past Surgical History Past Surgical History: Other (colostomy placement), No pertinent history Family History Family History: No Significant Social History No ALCOHOL: none Drugs: None Current Problem List Problem List Problems Medical Problems: (1) Hypercalcemia Status: Acute (2) Urinary retention Status: Acute (3) UTI (urinary tract infection) Status: Acute Current Medications Current Medications Current Medications Ceftriaxone Sodium (Rocephin) 1 gm 1X ONCE IVP Last administered on 09/12/21at 16:53; Start 09/12/21 at 15:15; Stop 09/12/21 at 15:16; Status DC Sodium Chloride 1,000 ml @ 1,000 mls/hr 1X ONCE IV Last administered on 09/12/21at 16:51; Start 09/12/21 at 15:30; Stop 09/12/21 at 16:29; Status DC Sodium Chloride 1,000 ml @ 75 mls/hr [id number] IV Last administered on 09/12/21at 20:08; Start 09/12/21 at 16:15; Stop 09/13/21 at 16:14 Sennosides (Senna) 17.2 mg PRN BID PRN PO CONSTIPATION; Start 09/12/21 at 16:30 Docusate Sodium (Colace) 100 mg PRN DAILY PRN PO HARD STOOLS; Start 09/12/21 at 16:30 Ondansetron HCl (Zofran) 4 mg PRN Q6HRS PRN IVP NAUSEA/VOMITING, 1st CHOICE; Start 09/12/21 at 16:30 Dextrose (Dextrose 50%-Water Syringe) 12.5 gm PRN Q15MIN PRN IV SEE COMMENTS; Start 09/12/21 at 16:30 Sodium Chloride 1,000 ml @ 100 mls/hr Q10H IV Last administered on 09/13/21at 00:26; Start 09/12/21 at 16:30 Acetaminophen (Tylenol) 650 mg PRN Q4HRS PRN PO TEMP OVER 100.4F OR MILD PAIN; Start 09/12/21 at 16:30 Lorazepam (Ativan) 0.5 mg PRN Q6HRS PRN PO ANXIETY / AGITATION; Start 09/12/21 at 16:30 Lorazepam (Ativan Inj) 0.25 mg PRN Q4HRS PRN IV ANXIETY / AGITATION; Start 09/12/21 at 16:30 Prochlorperazine Edisylate (Compazine) 10 mg PRN Q6HRS PRN IV NAUSEA/VOMITING, 2nd CHOICE; Start 09/12/21 at 16:30 Diphenhydramine HCl (Benadryl) 25 mg PRN Q6HRS PRN IVP ITCHING; Start 09/12/21 at 16:30 Diphenhydramine HCl (Benadryl) 25 mg PRN Q6HRS PRN PO ITCHING; Start 09/12/21 at 16:30 Diphenhydramine HCl (Benadryl) 25 mg PRN QHS PRN PO INSOMNIA, 1st CHOICE; Start 09/12/21 at 16:30 Zolpidem Tartrate (Ambien) 2.5 mg PRN QHS PRN PO INSOMNIA, 2nd CHOICE; Start 09/12/21 at 16:30 Info (Non-Icu Electrolyte Protocol) 1 ea CONT PRN PRN MC PER PROTOCOL; Start 09/13/21 at 02:15 Info (Non-Icu Electrolyte Protocol) 1 ea CONT PRN PRN MC PER PROTOCOL; Start 09/13/21 at 02:15; Status UNV Info (Non-Icu Electrolyte Protocol) 1 ea CONT PRN PRN MC PER PROTOCOL; Start 09/13/21 at 02:15; Status UNV Potassium Chloride (Klor-Con) 40 meq Q4H PO Last administered on 09/13/21at 06:21; Start 09/13/21 at 02:30; Stop 09/13/21 at 06:31; Status DC Active Scripts Active Percocet 5-325 Mg Tablet (Oxycodone/Acetaminophen) 1 Each Tablet 2 Tab PO PRN Q4HRS PRN Allergies Allergies: Coded Allergies: No Known Drug Allergies (Unverified , 08/08/18) ROS Genitourinary: YES Retention Physical Exam General: Alert, Oriented X3, Cooperative, No acute distress HEENT: Atraumatic, EOMI Lungs: Clear to auscultation, Normal air movement Heart: Regular rate, No murmurs Abdomen: Normal bowel sounds, Soft, No tenderness, Other (Ostomy is pink and viable gas within the ostomy bag minimal stool nontender to palpation) Extremities: No edema Skin: No significant lesion Neuro: Normal speech Psych/Mental Status: Mental status NL Vitals VITALS Vital Signs Date Time Temp Pulse Resp B/P (MAP) Pulse Ox O2 Delivery O2 Flow Rate FiO2 09/13/21 03:00 99.1 85 14 138/77 (97) 96 Room Air 99.1 Labs Labs Laboratory Tests Test 09/12/21 13:38 09/12/21 14:26 09/13/21 01:00 09/13/21 06:20 Urine Collection Type Unknown Urine Color Yellow Urine Clarity Cloudy Urine pH 5.5 (<5.0-8.0) Urine Specific Sulphur 1.015 (1.000-1.030) Urine Protein 30 mg/dL (NEG-TRACE) Urine Glucose (UA) Negative mg/dL (NEG) Urine Ketones (Stick) Trace mg/dL (NEG) Urine Blood Large (NEG) Urine Nitrite Negative (NEG) Urine Bilirubin Negative (NEG) Urine Urobilinogen Dipstick 0.2 mg/dL (0.2 mg/dL) Urine Leukocyte Esterase Moderate (NEG) Urine RBC Tntc /HPF (0-2) Urine WBC 5-10 /HPF (0-4) Urine Squamous Epithelial Cells Mod /LPF Urine Bacteria 0 /HPF (0-FEW) Urine Mucus Slight /LPF White Blood Count 12.7 x10^3/uL (4.0-11.0) Red Blood Count 3.42 x10^6/uL (3.50-5.40) Hemoglobin 8.5 g/dL (12.0-15.5) Hematocrit 27.4 % (36.0-47.0) Mean Corpuscular Volume 80 fL (79-100) Mean Corpuscular Hemoglobin 25 pg (25-35) Mean Corpuscular Hemoglobin Concent 31 g/dL (31-37) Red Cell Distribution Width 17.7 % (11.5-14.5) Platelet Count 553 x10^3/uL (140-400) Neutrophils (%) (Auto) 87 % (31-73) Lymphocytes (%) (Auto) 6 % (24-48) Monocytes (%) (Auto) 6 % (0-9) Eosinophils (%) (Auto) 0 % (0-3) Basophils (%) (Auto) 0 % (0-3) Neutrophils # (Auto) 11.1 x10^3/uL (1.8-7.7) Lymphocytes # (Auto) 0.7 x10^3/uL (1.0-4.8) Monocytes # (Auto) 0.8 x10^3/uL (0.0-1.1) Eosinophils # (Auto) 0.0 x10^3/uL (0.0-0.7) Basophils # (Auto) 0.0 x10^3/uL (0.0-0.2) Sodium Level 138 mmol/L (136-145) 139 mmol/L (136-145) 142 mmol/L (136-145) Potassium Level 3.9 mmol/L (3.5-5.1) 2.8 mmol/L (3.5-5.1) 3.3 mmol/L (3.5-5.1) Chloride Level 101 mmol/L (98-107) 104 mmol/L (98-107) 106 mmol/L (98-107) Carbon Dioxide Level 28 mmol/L (21-32) 32 mmol/L (21-32) 29 mmol/L (21-32) Anion Gap 9 (6-14) 3 (6-14) 7 (6-14) Blood Urea Nitrogen 21 mg/dL (7-20) 18 mg/dL (7-20) 13 mg/dL (7-20) Creatinine 1.4 mg/dL (0.6-1.0) 1.0 mg/dL (0.6-1.0) 0.7 mg/dL (0.6-1.0) Estimated GFR (Cockcroft-Gault) 46.4 68.4 103.3 BUN/Creatinine Ratio 15 (6-20) Glucose Level 100 mg/dL (70-99) 110 mg/dL (70-99) 78 mg/dL (70-99) Calcium Level 12.1 mg/dL (8.5-10.1) 10.4 mg/dL (8.5-10.1) 10.5 mg/dL (8.5-10.1) Magnesium Level 2.3 mg/dL (1.8-2.4) Total Bilirubin 0.4 mg/dL (0.2-1.0) Aspartate Amino Transf (AST/SGOT) 25 U/L (15-37) Alanine Aminotransferase (ALT/SGPT) 20 U/L (14-59) Alkaline Phosphatase 64 U/L (46-116) Total Protein 7.3 g/dL (6.4-8.2) Albumin 2.6 g/dL (3.4-5.0) Albumin/Globulin Ratio 0.6 (1.0-1.7) Laboratory Tests Test 09/12/21 13:38 09/12/21 14:26 09/13/21 01:00 09/13/21 06:20 Urine Collection Type Unknown Urine Color Yellow Urine Clarity Cloudy Urine pH 5.5 (<5.0-8.0) Urine Specific [place]ph[place] 1.015 (1.000-1.030) Urine Protein 30 mg/dL (NEG-TRACE) Urine Glucose (UA) Negative mg/dL (NEG) Urine Ketones (Stick) Trace mg/dL (NEG) Urine Blood Large (NEG) Urine Nitrite Negative (NEG) Urine Bilirubin Negative (NEG) Urine Urobilinogen Dipstick 0.2 mg/dL (0.2 mg/dL) Urine Leukocyte Esterase Moderate (NEG) Urine RBC Tntc /HPF (0-2) Urine WBC 5-10 /HPF (0-4) Urine Squamous Epithelial Cells Mod /LPF Urine Bacteria 0 /HPF (0-FEW) Urine Mucus Slight /LPF White Blood Count 12.7 x10^3/uL (4.0-11.0) Red Blood Count 3.42 x10^6/uL (3.50-5.40) Hemoglobin 8.5 g/dL (12.0-15.5) Hematocrit 27.4 % (36.0-47.0) Mean Corpuscular Volume 80 fL (79-100) Mean Corpuscular Hemoglobin 25 pg (25-35) Mean Corpuscular Hemoglobin Concent 31 g/dL (31-37) Red Cell Distribution Width 17.7 % (11.5-14.5) Platelet Count 553 x10^3/uL (140-400) Neutrophils (%) (Auto) 87 % (31-73) Lymphocytes (%) (Auto) 6 % (24-48) Monocytes (%) (Auto) 6 % (0-9) Eosinophils (%) (Auto) 0 % (0-3) Basophils (%) (Auto) 0 % (0-3) Neutrophils # (Auto) 11.1 x10^3/uL (1.8-7.7) Lymphocytes # (Auto) 0.7 x10^3/uL (1.0-4.8) Monocytes # (Auto) 0.8 x10^3/uL (0.0-1.1) Eosinophils # (Auto) 0.0 x10^3/uL (0.0-0.7) Basophils # (Auto) 0.0 x10^3/uL (0.0-0.2) Sodium Level 138 mmol/L (136-145) 139 mmol/L (136-145) 142 mmol/L (136-145) Potassium Level 3.9 mmol/L (3.5-5.1) 2.8 mmol/L (3.5-5.1) 3.3 mmol/L (3.5-5.1) Chloride Level 101 mmol/L (98-107) 104 mmol/L (98-107) 106 mmol/L (98-107) Carbon Dioxide Level 28 mmol/L (21-32) 32 mmol/L (21-32) 29 mmol/L (21-32) Anion Gap 9 (6-14) 3 (6-14) 7 (6-14) Blood Urea Nitrogen 21 mg/dL (7-20) 18 mg/dL (7-20) 13 mg/dL (7-20) Creatinine 1.4 mg/dL (0.6-1.0) 1.0 mg/dL (0.6-1.0) 0.7 mg/dL (0.6-1.0) Estimated GFR (Cockcroft-Gault) 46.4 68.4 103.3 BUN/Creatinine Ratio 15 (6-20) Glucose Level 100 mg/dL (70-99) 110 mg/dL (70-99) 78 mg/dL (70-99) Calcium Level 12.1 mg/dL (8.5-10.1) 10.4 mg/dL (8.5-10.1) 10.5 mg/dL (8.5-10.1) Magnesium Level 2.3 mg/dL (1.8-2.4) Total Bilirubin 0.4 mg/dL (0.2-1.0) Aspartate Amino Transf (AST/SGOT) 25 U/L (15-37) Alanine Aminotransferase (ALT/SGPT) 20 U/L (14-59) Alkaline Phosphatase 64 U/L (46-116) Total Protein 7.3 g/dL (6.4-8.2) Albumin 2.6 g/dL (3.4-5.0) Albumin/Globulin Ratio 0.6 (1.0-1.7) Images Images CT scan of her abdomen does show a fairly large parastomal hernia no evidence of obstruction Assessment/Plan Assessment/Plan Urinary retention Decreased stool output from ostomy likely constipation Parastomal hernia, not causing any bowel obstruction this can be evaluated electively when she is discharged KASSI WHITAKER MD Sep 13, 2021 09:41
[2021-09-13 09:53] LABS: BASO # 0.1 x10^3/uL (0.0-0.2); BASO % 1 % (0-3); EOS # 0.2 x10^3/uL (0.0-0.7); EOS % 2 % (0-3); HEMATOCRIT 23.3 % (36.0-47.0); HEMOGLOBIN 7.1 g/dL (12.0-15.5); LYMPH # 1.2 x10^3/uL (1.0-4.8); LYMPH % 15 % (24-48); MEAN CORPUSCULAR HEMOGLOBIN 25 pg (25-35); MEAN CORPUSCULAR HGB CONC 30 g/dL (31-37); MEAN CORPUSCULAR VOLUME 81 fL (79-100); MONO # 0.7 x10^3/uL (0.0-1.1); MONO % 8 % (0-9); NEUT # 6.1 x10^3/uL (1.8-7.7); NEUT % 74 % (31-73); PLATELET COUNT 431 x10^3/uL (140-400); RED BLOOD COUNT 2.89 x10^6/uL (3.50-5.40); RED CELL DISTRIBUTION WIDTH 17.7 % (11.5-14.5); WHITE BLOOD COUNT 8.1 x10^3/uL (4.0-11.0)
[2021-09-13 11:00] VITALS: BP 105/49
--- NOTE | 2021-09-13 11:10 | PDOC ---
[employer] PROGRESS NOTE Date of Service DOS: DATE: 09/13/21 TIME: 11:03 Chief Complaint Chief Complaint blood in urine History of Present Illness History of Present Illness 09/13/21: Patient seen and examined Chart Reviewed Discussed with RN Patient doing well Vitals/I&O Vitals/I&O: Vital Signs Date Time Temp Pulse Resp B/P (MAP) Pulse Ox O2 Delivery O2 Flow Rate FiO2 09/13/21 08:00 Room Air 09/13/21 07:00 99.5 89 18 157/91 (113) 98 99.5 I & O 09/12/21 09/12/21 09/13/21 15:00 23:00 07:00 Intake Total 200 ml 650 ml Output Total 1200 ml Balance 200 ml -550 ml Physical Exam General: Alert, Oriented X3, Cooperative, No acute distress Heart: Regular rate, No murmurs Lungs: Clear Abdomen: Normal bowel sounds, Soft, No tenderness, Other (Ostomy is pink and viable gas within the ostomy bag minimal stool nontender to palpation) Extremities: No edema Skin: No significant lesion Labs Labs: Laboratory Tests Test 09/12/21 13:38 09/12/21 14:26 09/13/21 01:00 09/13/21 06:20 Urine Collection Type Unknown Urine Color Yellow Urine Clarity Cloudy Urine pH 5.5 (<5.0-8.0) Urine Specific [place] 1.015 (1.000-1.030) Urine Protein 30 mg/dL (NEG-TRACE) Urine Glucose (UA) Negative mg/dL (NEG) Urine Ketones (Stick) Trace mg/dL (NEG) Urine Blood Large (NEG) Urine Nitrite Negative (NEG) Urine Bilirubin Negative (NEG) Urine Urobilinogen Dipstick 0.2 mg/dL (0.2 mg/dL) Urine Leukocyte Esterase Moderate (NEG) Urine RBC Tntc /HPF (0-2) Urine WBC 5-10 /HPF (0-4) Urine Squamous Epithelial Cells Mod /LPF Urine Bacteria 0 /HPF (0-FEW) Urine Mucus Slight /LPF White Blood Count 12.7 x10^3/uL (4.0-11.0) 8.1 x10^3/uL (4.0-11.0) Red Blood Count 3.42 x10^6/uL (3.50-5.40) 2.89 x10^6/uL (3.50-5.40) Hemoglobin 8.5 g/dL (12.0-15.5) 7.1 g/dL (12.0-15.5) Hematocrit 27.4 % (36.0-47.0) 23.3 % (36.0-47.0) Mean Corpuscular Volume 80 fL (79-100) 81 fL (79-100) Mean Corpuscular Hemoglobin 25 pg (25-35) 25 pg (25-35) Mean Corpuscular Hemoglobin Concent 31 g/dL (31-37) 30 g/dL (31-37) Red Cell Distribution Width 17.7 % (11.5-14.5) 17.7 % (11.5-14.5) Platelet Count 553 x10^3/uL (140-400) 431 x10^3/uL (140-400) Neutrophils (%) (Auto) 87 % (31-73) 74 % (31-73) Lymphocytes (%) (Auto) 6 % (24-48) 15 % (24-48) Monocytes (%) (Auto) 6 % (0-9) 8 % (0-9) Eosinophils (%) (Auto) 0 % (0-3) 2 % (0-3) Basophils (%) (Auto) 0 % (0-3) 1 % (0-3) Neutrophils # (Auto) 11.1 x10^3/uL (1.8-7.7) 6.1 x10^3/uL (1.8-7.7) Lymphocytes # (Auto) 0.7 x10^3/uL (1.0-4.8) 1.2 x10^3/uL (1.0-4.8) Monocytes # (Auto) 0.8 x10^3/uL (0.0-1.1) 0.7 x10^3/uL (0.0-1.1) Eosinophils # (Auto) 0.0 x10^3/uL (0.0-0.7) 0.2 x10^3/uL (0.0-0.7) Basophils # (Auto) 0.0 x10^3/uL (0.0-0.2) 0.1 x10^3/uL (0.0-0.2) Sodium Level 138 mmol/L (136-145) 139 mmol/L (136-145) 142 mmol/L (136-145) Potassium Level 3.9 mmol/L (3.5-5.1) 2.8 mmol/L (3.5-5.1) 3.3 mmol/L (3.5-5.1) Chloride Level 101 mmol/L (98-107) 104 mmol/L (98-107) 106 mmol/L (98-107) Carbon Dioxide Level 28 mmol/L (21-32) 32 mmol/L (21-32) 29 mmol/L (21-32) Anion Gap 9 (6-14) 3 (6-14) 7 (6-14) Blood Urea Nitrogen 21 mg/dL (7-20) 18 mg/dL (7-20) 13 mg/dL (7-20) Creatinine 1.4 mg/dL (0.6-1.0) 1.0 mg/dL (0.6-1.0) 0.7 mg/dL (0.6-1.0) Estimated GFR (Cockcroft-Gault) 46.4 68.4 103.3 BUN/Creatinine Ratio 15 (6-20) Glucose Level 100 mg/dL (70-99) 110 mg/dL (70-99) 78 mg/dL (70-99) Calcium Level 12.1 mg/dL (8.5-10.1) 10.4 mg/dL (8.5-10.1) 10.5 mg/dL (8.5-10.1) Magnesium Level 2.3 mg/dL (1.8-2.4) Total Bilirubin 0.4 mg/dL (0.2-1.0) Aspartate Amino Transf (AST/SGOT) 25 U/L (15-37) Alanine Aminotransferase (ALT/SGPT) 20 U/L (14-59) Alkaline Phosphatase 64 U/L (46-116) Total Protein 7.3 g/dL (6.4-8.2) Albumin 2.6 g/dL (3.4-5.0) Albumin/Globulin Ratio 0.6 (1.0-1.7) Assessment and Plan Assessmemt and Plan Problems Medical Problems: (1) Hypercalcemia Status: Acute (2) Urinary retention Status: Acute (3) UTI (urinary tract infection) Status: Acute \ Assessment Hematuria Anemia secondary to acute blood loss Urinary Retention Bilateral Hydronephrosis Parastomal Hernia OSCAR due to likely postobstructive uropathy Severe hypercalcemia, possible malignancy History of colostomy for colonic obstruction Hypokalemia Constipation Plan Urology following Continue IV fluids Hope to DC Cummings and try voiding trial soon Continue antibiotics Will need cystoscopy as outpatient per urology Trend Labs Appreciate GI input Home Meds DVT Full code Encourage PO intake DPOA: Kamini Araiza Per urology recommendations please see the following and we certainly agree and appreciate their input: ---Hematuria On assessment, urine is clear yellow. CT A/P with bilateral hydro and distended bladder. No evidence of stones. UA with large blood, pos leuks neg nitrites. Will need cystoscopy outpatient to complete hematuria workup. Hgb stable at 8.5 on admission. Recheck today was 7.1. Doubtful that significant hemoglobin drop is due to patients hematuria as urine output is clear and yellow. Will defer to to primary if they want an infusion. Patient not symptomatic at this time. ---Retention Cummings in place. Most likely caused from constipation. Bowel management per primary. Once constipation resolved, can attempt voiding trial as urine is clear. D/w nursing. ---UTI Possible UTI on UA, could be contaminated. Recommended continued antibiotics until culture results. Culture specific antibiotics for 10-14 days. ---OSCAR Cr on admission was 1.4. Improved to 1 following bladder decompression. Patient will need to follow up with urology for cytoscopy. Discussed this with patient and she is agreeable. Comment Review of Relevant I have reviewed the following items dionisio (where applicable) has been applied. Medications: Current Medications Medications (Trade) Dose Ordered Sig/Yvonne Route PRN Reason Start Time Stop Time Status Last Admin Dose Admin Ceftriaxone Sodium (Rocephin) 1 gm 1X ONCE IVP 09/12/21 15:15 09/12/21 15:16 DC 09/12/21 16:53 Sodium Chloride 1,000 ml @ 1,000 mls/hr 1X ONCE IV 09/12/21 15:30 09/12/21 16:29 DC 09/12/21 16:51 Sodium Chloride 1,000 ml @ 75 mls/hr [id number] IV 09/12/21 16:15 09/13/21 16:14 09/12/21 20:08 Sodium Chloride 1,000 ml @ 100 mls/hr Q10H IV 09/12/21 16:30 09/13/21 00:26 Potassium Chloride (Klor-Con) 40 meq Q4H PO 09/13/21 02:30 09/13/21 06:31 DC 09/13/21 06:21 Justifications for Admission Other Justification Hypercalcemia and hematuria CASTLE,NIAL K III DO Sep 13, 2021 11:10
[2021-09-13] MEDS ORDERED: POTASSIUM CHLORIDE 20 MEQ TABLET.ER. PO ONE (11:30)
[2021-09-13] MEDS: POLYETHYLENE GLYCOL 3350 17 GM PACKET. PO SCH (11:53)
[2021-09-13 15:00] VITALS: BP 126/85
[2021-09-13] MEDS: cefTRIAXone IV Push 1 GM VIAL. IVP SCH (18:10)
[2021-09-13 19:00] VITALS: BP 135/79
[2021-09-13] MEDS: LACTOBACILLUS RHAMNOSUS GG 1 CAPSULE. PO SCH (20:58)
[2021-09-13 23:00] VITALS: BP 169/95
[2021-09-14] MEDS: IV NORMAL SALINE 1000ML BAG 1,000 ML IV SCH ×3 (00:42→21:45)
--- NOTE | 2021-09-14 01:09 | EKG ---
[facility] [address] [place] [address] Test Date: 2021-09-12 Test Time: 16:25:43 Pat Name: JAMES DILLON Department: Room: [facility] Gender: F Closing Manager: : [id number] Requested By: RODDY BEAVER Order Number: [id number] Reading MD: Manuel Schwartz Measurements Intervals [place] Rate: 84 P: 56 [place]: 146 QRS: 4 QRSD: 86 T: 38 QT: 344 QTc: 410 Interpretive Statements SINUS RHYTHM MILD NON SPECIFIC ST CHANGES Electronically Signed On 09-17-2021 14:24:15 PAPER TESTER by Manuel Schwartz
[2021-09-14 03:00] VITALS: BP 168/94
[2021-09-14 07:00] VITALS: BP 169/97
[2021-09-14] MEDS: LACTOBACILLUS RHAMNOSUS GG 1 CAPSULE. PO SCH ×2 (07:43→21:00)
[2021-09-14] MEDS: POLYETHYLENE GLYCOL 3350 17 GM PACKET. PO SCH ×3 (07:43→21:00)
--- NOTE | 2021-09-14 08:58 | PDOC ---
DARIAN JOHNSON BUSINESS OPERATIONS MANAGER 09/14/21 0858: SURGICAL PROGRESS NOTE DATE: 09/14/21 TIME: 08:56 Subjective very small, hard stool from ostomy reports increasing rectal drainage this last year Vital Signs Vital Signs Date Time Temp Pulse Resp B/P (MAP) Pulse Ox O2 Delivery O2 Flow Rate FiO2 09/14/21 07:00 98.2 79 18 169/97 (121) 97 Room Air 98.2 I&O Intake and Output 09/14/21 07:00 Intake Total 600 ml Output Total 1850 ml Balance -1250 ml Intake Oral 600 ml Output Urine Total 1850 ml General: Alert, Cooperative Abdomen: Soft, Other (parastomal hernia ) Labs Laboratory Tests Test 09/12/21 13:38 09/12/21 14:26 09/13/21 01:00 09/13/21 06:20 Urine Collection Type Unknown Urine Color Yellow Urine Clarity Cloudy Urine pH 5.5 (<5.0-8.0) Urine Specific [place] 1.015 (1.000-1.030) Urine Protein 30 mg/dL (NEG-TRACE) Urine Glucose (UA) Negative mg/dL (NEG) Urine Ketones (Stick) Trace mg/dL (NEG) Urine Blood Large (NEG) Urine Nitrite Negative (NEG) Urine Bilirubin Negative (NEG) Urine Urobilinogen Dipstick 0.2 mg/dL (0.2 mg/dL) Urine Leukocyte Esterase Moderate (NEG) Urine RBC Tntc /HPF (0-2) Urine WBC 5-10 /HPF (0-4) Urine Squamous Epithelial Cells Mod /LPF Urine Bacteria 0 /HPF (0-FEW) Urine Mucus Slight /LPF White Blood Count 12.7 x10^3/uL (4.0-11.0) 8.1 x10^3/uL (4.0-11.0) Red Blood Count 3.42 x10^6/uL (3.50-5.40) 2.89 x10^6/uL (3.50-5.40) Hemoglobin 8.5 g/dL (12.0-15.5) 7.1 g/dL (12.0-15.5) Hematocrit 27.4 % (36.0-47.0) 23.3 % (36.0-47.0) Mean Corpuscular Volume 80 fL (79-100) 81 fL (79-100) Mean Corpuscular Hemoglobin 25 pg (25-35) 25 pg (25-35) Mean Corpuscular Hemoglobin Concent 31 g/dL (31-37) 30 g/dL (31-37) Red Cell Distribution Width 17.7 % (11.5-14.5) 17.7 % (11.5-14.5) Platelet Count 553 x10^3/uL (140-400) 431 x10^3/uL (140-400) Neutrophils (%) (Auto) 87 % (31-73) 74 % (31-73) Lymphocytes (%) (Auto) 6 % (24-48) 15 % (24-48) Monocytes (%) (Auto) 6 % (0-9) 8 % (0-9) Eosinophils (%) (Auto) 0 % (0-3) 2 % (0-3) Basophils (%) (Auto) 0 % (0-3) 1 % (0-3) Neutrophils # (Auto) 11.1 x10^3/uL (1.8-7.7) 6.1 x10^3/uL (1.8-7.7) Lymphocytes # (Auto) 0.7 x10^3/uL (1.0-4.8) 1.2 x10^3/uL (1.0-4.8) Monocytes # (Auto) 0.8 x10^3/uL (0.0-1.1) 0.7 x10^3/uL (0.0-1.1) Eosinophils # (Auto) 0.0 x10^3/uL (0.0-0.7) 0.2 x10^3/uL (0.0-0.7) Basophils # (Auto) 0.0 x10^3/uL (0.0-0.2) 0.1 x10^3/uL (0.0-0.2) Sodium Level 138 mmol/L (136-145) 139 mmol/L (136-145) 142 mmol/L (136-145) Potassium Level 3.9 mmol/L (3.5-5.1) 2.8 mmol/L (3.5-5.1) 3.3 mmol/L (3.5-5.1) Chloride Level 101 mmol/L (98-107) 104 mmol/L (98-107) 106 mmol/L (98-107) Carbon Dioxide Level 28 mmol/L (21-32) 32 mmol/L (21-32) 29 mmol/L (21-32) Anion Gap 9 (6-14) 3 (6-14) 7 (6-14) Blood Urea Nitrogen 21 mg/dL (7-20) 18 mg/dL (7-20) 13 mg/dL (7-20) Creatinine 1.4 mg/dL (0.6-1.0) 1.0 mg/dL (0.6-1.0) 0.7 mg/dL (0.6-1.0) Estimated GFR (Cockcroft-Gault) 46.4 68.4 103.3 BUN/Creatinine Ratio 15 (6-20) Glucose Level 100 mg/dL (70-99) 110 mg/dL (70-99) 78 mg/dL (70-99) Calcium Level 12.1 mg/dL (8.5-10.1) 10.4 mg/dL (8.5-10.1) 10.5 mg/dL (8.5-10.1) Magnesium Level 2.3 mg/dL (1.8-2.4) Total Bilirubin 0.4 mg/dL (0.2-1.0) Aspartate Amino Transf (AST/SGOT) 25 U/L (15-37) Alanine Aminotransferase (ALT/SGPT) 20 U/L (14-59) Alkaline Phosphatase 64 U/L (46-116) Total Protein 7.3 g/dL (6.4-8.2) Albumin 2.6 g/dL (3.4-5.0) Albumin/Globulin Ratio 0.6 (1.0-1.7) Problem List Problems Medical Problems: (1) Hypercalcemia Status: Acute (2) Urinary retention Status: Acute (3) UTI (urinary tract infection) Status: Acute Assessment/Plan continue laxatives will review with Dr carla farley, chart < 15 min Justicifation of Admission Dx: Justifications for Admission: Justification of Admission Dx: Yes Comments: constipation, urinary retention MIC CALERO MD 09/14/21 4776: SURGICAL PROGRESS NOTE Assessment/Plan Pt seen and examined. Agree with Ms. Johnson's note Pt reports indistinct symptoms. Extensive unintentional weight loss. Difficulty voiding with concern for sanguinous vaginal discharge some issues with constipation and bloating. anemia, hypercalcemia, elevated tumor markers concerning for occult malignancy will ask manager intel and oncology to evaluate. Does not appear to have symptoms related to parastomal hernia DARIAN JOHNSON APRN Sep 14, 2021 08:58 MIC CALERO MD Sep 14, 2021 19:09
[2021-09-14 09:10] LABS: CA 125 59.1 U/mL (0.0-38.1)
--- NOTE | 2021-09-14 10:25 | PDOC ---
SUBJECTIVE Subjective Pt denies any complaints urine has been yellow states has been constipated for 2wks. No urinary voiding difficulty prior to this had tiny hard BM today "like a dry dc" OBJECTIVE Vital Signs Vital Signs Date Time Temp Pulse Resp B/P (MAP) Pulse Ox O2 Delivery O2 Flow Rate FiO2 09/14/21 08:05 Room Air 09/14/21 07:00 98.2 79 18 169/97 (121) 97 Room Air 98.2 09/14/21 03:00 98.1 84 14 168/94 (118) 97 Room Air 98.1 09/13/21 23:00 98.2 96 14 169/95 (119) 95 Room Air 98.2 09/13/21 20:18 Room Air 09/13/21 19:00 98.1 96 14 135/79 (97) 98 Room Air 98.1 09/13/21 15:00 98.8 95 18 126/85 (99) 98 Room Air 98.8 09/13/21 11:00 98.4 101 20 105/49 (67) 99 Room Air 98.4 I & O Intake and Output 09/14/21 07:00 Intake Total 600 ml Output Total 1850 ml Balance -1250 ml Intake Oral 600 ml Output Urine Total 1850 ml PHYSICAL EXAM Physical Exam NAD, resting comfortably Unlabored breathing Cummings draining yellow urine ASSESSMENT/PLAN Assessment/Plan Urinary Retention Plan for voiding trial when constipation improved. Hopefully later this week. GI following. Bowel regimen. Hematuria(?) Unclear if this was actually hematuria vs. vaginal/rectal bleeding. UA specimen was reported as yellow. Urine here has been yellow. Per pt, she thought it could may been vaginal bleeding--small amount of voided urine was yellow then laid down in bed and noted large blood/clots output. Will complete the evaluation with cystoscopy outpatient. May also need gynecology evaluation, defer to primary. CT reviewed, hydronephrosis should resolve with bladder decompression. UTI F/u urine culture, not sure one was sent. Probably would not be accurate to send now. Can do 7d abx to cover. I d/w patient f/u, and she does not want to f/u at our [facility], or [facility] offices. Pt prefers [facility]. D/w RN, who will facilitate referral there. Justifications for Admission Other Justification Hypercalcemia and hematuria LAMAR KING 31, 2022 10:24
--- NOTE | 2021-09-14 10:38 | NUR ---
SW following. Discussed with RN, pt from home, room air, regular diet, IV abx. Surgery and Urology following. Med Assist following for self pay status. SW will continue to follow.
[2021-09-14 11:00] VITALS: BP 154/98
[2021-09-14] MEDS ORDERED: POTASSIUM CHLORIDE 20 MEQ TABLET.ER. PO ONE (12:15)
[2021-09-14] MEDS ORDERED: ERGOCALCIFEROL (VITAMIN D2) 50,000 UNIT CAPSULE. PO SCH (12:15)
--- NOTE | 2021-09-14 12:40 | NUR ---
Miralax non admin pt took dose this am
[2021-09-14 12:56] LABS: HEMATOCRIT 27.7 % (36.0-47.0); HEMOGLOBIN 8.2 g/dL (12.0-15.5); RED BLOOD COUNT 3.33 x10^6/uL (3.50-5.40); WHITE BLOOD COUNT 10.3 x10^3/uL (4.0-11.0)
[2021-09-14 13:21] LABS: CALCIUM 10.7 mg/dL (8.5-10.1); CREATININE 0.7 mg/dL (0.6-1.0); GFR 103.3; POTASSIUM 3.6 mmol/L (3.5-5.1)
--- NOTE | 2021-09-14 14:56 | PDOC ---
[employer] PROGRESS NOTE Date of Service DOS: DATE: 09/14/21 TIME: 14:54 Chief Complaint Chief Complaint microcytic anemia UTI acute blood loss anemia weakness, debility hypercalcemia constipation elevated CEA vitamin D deficiency dehydration History of Present Illness History of Present Illness 09/13/21: Patient seen and examined Chart Reviewed Discussed with RN Patient doing well Vitals/I&O Vitals/I&O: Vital Signs Date Time Temp Pulse Resp B/P (MAP) Pulse Ox O2 Delivery O2 Flow Rate FiO2 09/14/21 11:00 98.3 86 18 154/98 (116) 98 Room Air 98.3 I & O 09/13/21 09/13/21 09/14/21 14:59 22:59 06:59 Intake Total 300 ml 300 ml Output Total 200 ml 1650 ml Balance 300 ml -200 ml -1350 ml Physical Exam General: Alert, Cooperative Heart: Regular rate, No murmurs Lungs: Clear Abdomen: Soft, Other (parastomal hernia ) Extremities: No edema Skin: No significant lesion Labs Labs: Laboratory Tests Test 09/14/21 12:45 White Blood Count 10.3 x10^3/uL (4.0-11.0) Red Blood Count 3.33 x10^6/uL (3.50-5.40) Hemoglobin 8.2 g/dL (12.0-15.5) Hematocrit 27.7 % (36.0-47.0) Mean Corpuscular Volume 83 fL (79-100) Mean Corpuscular Hemoglobin 25 pg (25-35) Mean Corpuscular Hemoglobin Concent 30 g/dL (31-37) Red Cell Distribution Width 18.0 % (11.5-14.5) Platelet Count 447 x10^3/uL (140-400) Sodium Level 145 mmol/L (136-145) Potassium Level 3.6 mmol/L (3.5-5.1) Chloride Level 107 mmol/L (98-107) Carbon Dioxide Level 28 mmol/L (21-32) Anion Gap 10 (6-14) Blood Urea Nitrogen 9 mg/dL (7-20) Creatinine 0.7 mg/dL (0.6-1.0) Estimated GFR (Cockcroft-Gault) 103.3 Glucose Level 99 mg/dL (70-99) Calcium Level 10.7 mg/dL (8.5-10.1) Iron Level 16 ug/dL (50-170) Total Iron Binding Capacity 253 ug/dL (250-450) Iron Saturation 6 % (15-34) Assessment and Plan Assessmemt and Plan Problems Medical Problems: (1) Hypercalcemia Status: Acute (2) Urinary retention Status: Acute (3) UTI (urinary tract infection) Status: Acute Comment Review of Relevant I have reviewed the following items dionisio (where applicable) has been applied. Medications: Current Medications Medications (Trade) Dose Ordered Sig/Yvonne Route PRN Reason Start Time Stop Time Status Last Admin Dose Admin Ceftriaxone Sodium (Rocephin) 1 gm Q24H IVP 09/13/21 18:00 09/13/21 18:10 Lactobacillus Rhamnosus (Culturelle) 1 cap BID PO 09/13/21 21:00 09/14/21 07:43 Ergocalciferol (Vitamin D2) 50,000 unit WEEKLY PO 09/14/21 12:15 09/14/21 14:13 Potassium Chloride (Klor-Con) 40 meq 1X ONCE PO 09/14/21 12:15 09/14/21 12:16 DC 09/14/21 14:13 Justifications for Admission Other Justification Hypercalcemia and hematuria LIZ SCHMITT MD Sep 14, 2021 14:56
[2021-09-14 15:00] VITALS: BP 171/101
[2021-09-14] MEDS ORDERED: IRON SUCROSE COMPLEX 200 MG in IV NORMAL SALINE 100ML 100 ML IV ONE (15:30)
[2021-09-14] MEDS: cefTRIAXone IV Push 1 GM VIAL. IVP SCH (18:13)
[2021-09-14 19:25] VITALS: BP 168/89
--- NOTE | 2021-09-14 23:21 | RAD ---
EXAM: Complete transvaginal pelvic ultrasound INDICATION: Elevated CA-125. Postmenopausal 61-year-old female. COMPARISON: CT abdomen and pelvis September 12, 2021 TECHNIQUE: Transabdominal pelvic transducer with grayscale and duplex Doppler sonography. FINDINGS: Transabdominal pelvic sonography uterus measures 11.8 x 4.9 x 5.9 cm. There is echogenic expansion an d possible calcifications of the endometrium, endometrial thickness 1.7 cm which is abnormal in a pos tmenopausal female. Left ovary is enlarged measuring 5.6 x 9.8 x 6.6 cm with a 6.5 cm oblong unilocular cystic mass altho ugh the solid components of the left ovary may also be enlarged. Intact left ovarian blood flow. Righ t ovary not visualized and obscured by bowel gas shadowing. No pelvic free fluid documented. IMPRESSION: 1. Uterine endometrium is abnormally thickened measuring 1.7 cm in thickness with punctate type echog enic foci typical calcifications. These findings are concerning for endometrial carcinoma in this pos tmenopausal female. 2. Left ovary is enlarged associated with a 6.5 cm unilocular simple cyst, as well as increased soft tissue thickness of the ovary, raising concern for ovarian cystic neoplasm. 3. Right ovary could not be visualized sonographically. Electronically signed by: Art Fuller MD (09/14/2021 11:19 PM) [facility]
[2021-09-14 23:43] VITALS: BP 184/101
[2021-09-15] MEDS: hydrALAZINE 20 MG/ML VIAL. IVP PRN ×2 (01:15→20:45)
[2021-09-15 03:00] VITALS: BP 180/99
[2021-09-15 07:15] VITALS: BP 165/97
[2021-09-15] MEDS: POLYETHYLENE GLYCOL 3350 17 GM PACKET. PO SCH ×2 (08:50→20:24)
[2021-09-15] MEDS: LACTOBACILLUS RHAMNOSUS GG 1 CAPSULE. PO SCH ×2 (08:50→20:44)
[2021-09-15] MEDS: IV NORMAL SALINE 1000ML BAG 1,000 ML IV SCH ×2 (08:50→14:30)
[2021-09-15] MEDS: FERROUS SULFATE 325 MG TABLET. PO SCH (08:50)
--- NOTE | 2021-09-15 09:13 | PDOC ---
DARIAN JOHNSON FORENSIC IDENTIFICATION SPECIALIST 09/15/21 0913: SURGICAL PROGRESS NOTE DATE: 09/15/21 TIME: 09:11 Subjective resting did have more stool overnight Vital Signs Vital Signs Date Time Temp Pulse Resp B/P (MAP) Pulse Ox O2 Delivery O2 Flow Rate FiO2 09/15/21 07:15 98.5 96 18 165/97 (119) 99 Room Air 98.5 I&O Intake and Output 09/15/21 07:00 Intake Total 480 ml Balance 480 ml Intake Oral 480 ml # Voids 3 General: Alert, Cooperative Abdomen: Soft, Other (stoma) Labs Laboratory Tests Test 09/14/21 12:45 White Blood Count 10.3 x10^3/uL (4.0-11.0) Red Blood Count 3.33 x10^6/uL (3.50-5.40) Hemoglobin 8.2 g/dL (12.0-15.5) Hematocrit 27.7 % (36.0-47.0) Mean Corpuscular Volume 83 fL (79-100) Mean Corpuscular Hemoglobin 25 pg (25-35) Mean Corpuscular Hemoglobin Concent 30 g/dL (31-37) Red Cell Distribution Width 18.0 % (11.5-14.5) Platelet Count 447 x10^3/uL (140-400) Sodium Level 145 mmol/L (136-145) Potassium Level 3.6 mmol/L (3.5-5.1) Chloride Level 107 mmol/L (98-107) Carbon Dioxide Level 28 mmol/L (21-32) Anion Gap 10 (6-14) Blood Urea Nitrogen 9 mg/dL (7-20) Creatinine 0.7 mg/dL (0.6-1.0) Estimated GFR (Cockcroft-Gault) 103.3 Glucose Level 99 mg/dL (70-99) Calcium Level 10.7 mg/dL (8.5-10.1) Iron Level 16 ug/dL (50-170) Total Iron Binding Capacity 253 ug/dL (250-450) Iron Saturation 6 % (15-34) Laboratory Tests Test 09/14/21 12:45 White Blood Count 10.3 x10^3/uL (4.0-11.0) Red Blood Count 3.33 x10^6/uL (3.50-5.40) Hemoglobin 8.2 g/dL (12.0-15.5) Hematocrit 27.7 % (36.0-47.0) Mean Corpuscular Volume 83 fL (79-100) Mean Corpuscular Hemoglobin 25 pg (25-35) Mean Corpuscular Hemoglobin Concent 30 g/dL (31-37) Red Cell Distribution Width 18.0 % (11.5-14.5) Platelet Count 447 x10^3/uL (140-400) Sodium Level 145 mmol/L (136-145) Potassium Level 3.6 mmol/L (3.5-5.1) Chloride Level 107 mmol/L (98-107) Carbon Dioxide Level 28 mmol/L (21-32) Anion Gap 10 (6-14) Blood Urea Nitrogen 9 mg/dL (7-20) Creatinine 0.7 mg/dL (0.6-1.0) Estimated GFR (Cockcroft-Gault) 103.3 Glucose Level 99 mg/dL (70-99) Calcium Level 10.7 mg/dL (8.5-10.1) Iron Level 16 ug/dL (50-170) Total Iron Binding Capacity 253 ug/dL (250-450) Iron Saturation 6 % (15-34) Problem List Problems Medical Problems: (1) Hypercalcemia Status: Acute (2) Urinary retention Status: Acute (3) UTI (urinary tract infection) Status: Acute Assessment/Plan carton repairer eval, US noted urology following round, chart < 15 min Justicifation of Admission Dx: Justifications for Admission: Justification of Admission Dx: Yes MIC CALERO MD 09/15/21 1157: SURGICAL PROGRESS NOTE Assessment/Plan Pt seen and examined. Agree with Ms. Johnson's note Pt feels better, especially knowing what is going on. abd soft, ostomy fxn agree with w/u and treatment per carton repairer (agree with carton repairer onc eval) and urology. No current gen surg plans. ALEXDARIAN L FORENSIC IDENTIFICATION SPECIALIST Sep 15, 2021 09:13 MIC CALERO MD Sep 15, 2021 11:57
[2021-09-15 11:15] VITALS: BP 184/99
--- NOTE | 2021-09-15 11:20 | PDOC2 ---
CONSULT Date of Consult Date of Consult DATE: 09/15/21 TIME: 11:13 Reason for Consult Reason for Consult: elevated CA-125 and MISTY cyst Referring Physician Referring Physician: Dr. Worley Identification/Chief Complaint Chief Complaint Abd fullness and ostomy problems Source Source: Chart review, Patient History of Present Illness Reason for Visit: 61 y/o G0 presented to ED with c/o abd fullness and pain. She was found to have [place]. hydronephrosis and hernia. CT scan indicated mild [place]. hydronephrosis and mild ascites. 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 Pt. with elevated CA-125. Past Medical History Cardiovascular: No pertinent hx Pulmonary: No pertinent hx GI: No pertinent hx, Constipation Heme/Onc: No pertinent hx Hepatobiliary: No pertinent hx Psych: No pertinent hx Rheumatologic: No pertinent hx Infectious disease: No pertinent hx Past Surgical History Past Surgical History: Other (colostomy placement), No pertinent history Family History Family History: No Significant Social History No ALCOHOL: none Drugs: None Current Problem List Problem List Problems Medical Problems: (1) Hypercalcemia Status: Acute (2) Urinary retention Status: Acute (3) UTI (urinary tract infection) Status: Acute Current Medications Current Medications Current Medications Ceftriaxone Sodium (Rocephin) 1 gm 1X ONCE IVP Last administered on 09/12/21at 16:53; Start 09/12/21 at 15:15; Stop 09/12/21 at 15:16; Status DC Sodium Chloride 1,000 ml @ 1,000 mls/hr 1X ONCE IV Last administered on 09/12/21at 16:51; Start 09/12/21 at 15:30; Stop 09/12/21 at 16:29; Status DC Sodium Chloride 1,000 ml @ 75 mls/hr [id number] IV Last administered on 09/13/21at 11:53; Start 09/12/21 at 16:15; Stop 09/13/21 at 16:14; Status DC Sennosides (Senna) 17.2 mg PRN BID PRN PO CONSTIPATION; Start 09/12/21 at 16:30 Docusate Sodium (Colace) 100 mg PRN DAILY PRN PO HARD STOOLS; Start 09/12/21 at 16:30 Ondansetron HCl (Zofran) 4 mg PRN Q6HRS PRN IVP NAUSEA/VOMITING, 1st CHOICE; Start 09/12/21 at 16:30 Dextrose (Dextrose 50%-Water Syringe) 12.5 gm PRN Q15MIN PRN IV SEE COMMENTS; Start 09/12/21 at 16:30 Sodium Chloride 1,000 ml @ 100 mls/hr Q10H IV Last administered on 09/15/21at 08:50; Start 09/12/21 at 16:30 Acetaminophen (Tylenol) 650 mg PRN Q4HRS PRN PO TEMP OVER 100.4F OR MILD PAIN; Start 09/12/21 at 16:30 Lorazepam (Ativan) 0.5 mg PRN Q6HRS PRN PO ANXIETY / AGITATION; Start 09/12/21 at 16:30 Lorazepam (Ativan Inj) 0.25 mg PRN Q4HRS PRN IV ANXIETY / AGITATION; Start 09/12/21 at 16:30 Prochlorperazine Edisylate (Compazine) 10 mg PRN Q6HRS PRN IV NAUSEA/VOMITING, 2nd CHOICE; Start 09/12/21 at 16:30 Diphenhydramine HCl (Benadryl) 25 mg PRN Q6HRS PRN IVP ITCHING; Start 09/12/21 at 16:30 Diphenhydramine HCl (Benadryl) 25 mg PRN Q6HRS PRN PO ITCHING Last administered on 09/15/21at 01:24; Start 09/12/21 at 16:30 Diphenhydramine HCl (Benadryl) 25 mg PRN QHS PRN PO INSOMNIA, 1st CHOICE; Start 09/12/21 at 16:30 Zolpidem Tartrate (Ambien) 2.5 mg PRN QHS PRN PO INSOMNIA, 2nd CHOICE; Start 09/12/21 at 16:30 Info (Non-Icu Electrolyte Protocol) 1 ea CONT PRN PRN MC PER PROTOCOL; Start 09/13/21 at 02:15 Info (Non-Icu Electrolyte Protocol) 1 ea CONT PRN PRN MC PER PROTOCOL; Start 09/13/21 at 02:15; Status UNV Info (Non-Icu Electrolyte Protocol) 1 ea CONT PRN PRN MC PER PROTOCOL; Start 09/13/21 at 02:15; Status UNV Potassium Chloride (Klor-Con) 40 meq Q4H PO Last administered on 09/13/21at 06:21; Start 09/13/21 at 02:30; Stop 09/13/21 at 06:31; Status DC Polyethylene Glycol (miraLAX PACKET) 17 gm DAILY PO Last administered on 09/14/21at 07:43; Start 09/13/21 at 10:00; Stop 09/14/21 at 12:09; Status DC Potassium Chloride (Klor-Con) 40 meq 1X ONCE PO Last administered on 09/13/21at 11:53; Start 09/13/21 at 11:30; Stop 09/13/21 at 11:31; Status DC Ceftriaxone Sodium (Rocephin) 1 gm Q24H IVP Last administered on 09/14/21at 18:13; Start 09/13/21 at 18:00 Lactobacillus Rhamnosus (Culturelle) 1 cap BID PO Last administered on 09/15/21at 08:50; Start 09/13/21 at 21:00 Ergocalciferol (Vitamin D2) 50,000 unit WEEKLY PO Last administered on 09/14/21at 14:13; Start 09/14/21 at 12:15 Potassium Chloride (Klor-Con) 40 meq 1X ONCE PO Last administered on 09/14/21at 14:13; Start 09/14/21 at 12:15; Stop 09/14/21 at 12:16; Status DC Polyethylene Glycol (miraLAX PACKET) 17 gm BID PO ; Start 09/14/21 at 12:15 Iron Sucrose 200 mg/Sodium Chloride 110 ml @ 55 mls/hr 1X ONCE IV Last administered on 09/14/21at 15:36; Start 09/14/21 at 15:30; Stop 09/14/21 at 17:29; Status DC Ferrous Sulfate (Feosol) 325 mg DAILYWBKFT PO Last administered on 09/15/21at 08:50; Start 09/15/21 at 08:00 Hydralazine HCl (Apresoline Inj) 10 mg PRN Q4HRS PRN IVP ELEVATED BP, SEE COMMENTS Last administered on 09/15/21at 01:15; Start 09/15/21 at 01:00 Active Scripts Active Percocet 5-325 Mg Tablet (Oxycodone/Acetaminophen) 1 Each Tablet 2 Tab PO PRN Q4HRS PRN Allergies Allergies: Coded Allergies: No Known Drug Allergies (Unverified , 08/08/18) ROS General: YES: Fatigue, Appetite; No: Chills, Night Sweats, Malaise, Other PSYCHOLOGICAL ROS: YES: Anxiety; No: Behavioral Disorder, Concentration difficultie, Decreased libido, Depression, Disorientation, Hallucinations, Hostility, Irritablity, Memory difficulties, Mood Swings, Obsessive thoughts, Physical abuse, Sexual abuse, Sleep disturbances, Suicidal ideation, Other Eyes: No Blurry vision, No Decreased vision, No Double vision, No Dry eyes, No Excessive tearing, No Eye Pain, No Itchy Eyes, No Loss of vision, No Photophobia, No Scotomata, No Uses contacts, No Uses glasses, No Other HEENT: No: Heacaches, Visual Changes, Hearing change, Nasal congestion, Nasal discharge, Oral lesions, Sinus pain, Sore Throat, Epistaxis, Sneezing, Snoring, Tinnitus, Vertigo, Vocal changes, Other ALLERGY AND IMMUNOLOGY: No: Hives, Insect Bite Sensitivity, Itchy/Watery Eyes, Nasal Congestion, Post Nasal Drip, Seasonal Allergies, Other Hematological and Lymphatic: No: Bleeding Problems, Blood Clots, Blood Transfusions, Brusing, Night Sweats, Pallor, Swollen Lymph Nodes, Other ENDOCRINE: No: Breast Changes, Galactorrhea, Hair Pattern Changes, Hot Flashes, Malaise/lethargy, Mood Swings, Palpitations, Polydipsia/polyuria, Skin Changes, Temperature Intolerance, Unexpected Weight Changes, Other Breast: No New/Changing Breast Lumps, No Nipple changes, No Nipple discharge, No Other Respiratory: No: Cough, Hemoptysis, Orthopnea, Pleuritic Pain, Shortness of breath, SOB with excertion, Sputum Changes, Stridor, Tachypnea, Wheezing, Other Cardiovascular: No Chest Pain, No Palpitations, No Orthopnea, No Paroxysmal Noc. Dyspnea, No Edema, No Lt Headedness, No Other Gastrointestinal: Yes Abdominal Pain, Yes Constipation Genitourinary: YES Retention Musculoskeletal: No Gait Disturbance, No Joint Pain, No Joint Stiffness, No Joint Swelling, No Muscle Pain, No Muscular Weakness, No Pain In:, No Swelling In:, No Other Neurological: No Behavorial Changes, No Bowel/Bladder ControlChng, No Confusion, No Dizziness, No Gait Disturbance, No Headaches, No Impaired Coord/balance, No Memory Loss, No Numbness/Tingling, No Seizures, No Speech Problems, No Tremors, No Visual Changes, No Weakness, No Other Skin: No Dry Skin, No Eczema, No Hair Changes, No Lumps, No Mole Changes, No Mottling, No Nail Changes, No Pruritus, No Rash, No Skin Lesion Changes, No Other, No Acne Physical Exam General: Alert, Oriented X3, Cooperative HEENT: Atraumatic Lungs: Clear to auscultation Heart: Regular rate Abdomen: Soft, Other (distended) Vitals VITALS Vital Signs Date Time Temp Pulse Resp B/P (MAP) Pulse Ox O2 Delivery O2 Flow Rate FiO2 09/15/21 08:05 Room Air 09/15/21 07:15 98.5 96 18 165/97 (119) 99 98.5 Labs Labs Laboratory Tests Test 09/14/21 12:45 White Blood Count 10.3 x10^3/uL (4.0-11.0) Red Blood Count 3.33 x10^6/uL (3.50-5.40) Hemoglobin 8.2 g/dL (12.0-15.5) Hematocrit 27.7 % (36.0-47.0) Mean Corpuscular Volume 83 fL (79-100) Mean Corpuscular Hemoglobin 25 pg (25-35) Mean Corpuscular Hemoglobin Concent 30 g/dL (31-37) Red Cell Distribution Width 18.0 % (11.5-14.5) Platelet Count 447 x10^3/uL (140-400) Sodium Level 145 mmol/L (136-145) Potassium Level 3.6 mmol/L (3.5-5.1) Chloride Level 107 mmol/L (98-107) Carbon Dioxide Level 28 mmol/L (21-32) Anion Gap 10 (6-14) Blood Urea Nitrogen 9 mg/dL (7-20) Creatinine 0.7 mg/dL (0.6-1.0) Estimated GFR (Cockcroft-Gault) 103.3 Glucose Level 99 mg/dL (70-99) Calcium Level 10.7 mg/dL (8.5-10.1) Iron Level 16 ug/dL (50-170) Total Iron Binding Capacity 253 ug/dL (250-450) Iron Saturation 6 % (15-34) Laboratory Tests Test 09/14/21 12:45 White Blood Count 10.3 x10^3/uL (4.0-11.0) Red Blood Count 3.33 x10^6/uL (3.50-5.40) Hemoglobin 8.2 g/dL (12.0-15.5) Hematocrit 27.7 % (36.0-47.0) Mean Corpuscular Volume 83 fL (79-100) Mean Corpuscular Hemoglobin 25 pg (25-35) Mean Corpuscular Hemoglobin Concent 30 g/dL (31-37) Red Cell Distribution Width 18.0 % (11.5-14.5) Platelet Count 447 x10^3/uL (140-400) Sodium Level 145 mmol/L (136-145) Potassium Level 3.6 mmol/L (3.5-5.1) Chloride Level 107 mmol/L (98-107) Carbon Dioxide Level 28 mmol/L (21-32) Anion Gap 10 (6-14) Blood Urea Nitrogen 9 mg/dL (7-20) Creatinine 0.7 mg/dL (0.6-1.0) Estimated GFR (Cockcroft-Gault) 103.3 Glucose Level 99 mg/dL (70-99) Calcium Level 10.7 mg/dL (8.5-10.1) Iron Level 16 ug/dL (50-170) Total Iron Binding Capacity 253 ug/dL (250-450) Iron Saturation 6 % (15-34) Assessment/Plan Assessment/Plan A: Abd pain MISTY Complex Cyst with thickened endometrial lining P: Recommend referral to [facility]/Onc for possible ovarian cancer/endometrial cancer. Recommend [facility] or [facility]Onc for embx and further care/evaluation. Thank you for consultation. YASMANY GARCIA Jr, MD Sep 15, 2021 11:20
[2021-09-15 13:17] LABS: CALCIUM PTH 11.5 mg/dL (8.7-10.3); CREATININE PTH 0.79 mg/dL (0.57-1.00); PHOSPHORUS PTH 2.4 mg/dL (3.0-4.3); PTH INTACT 11 pg/mL (15-65)
[2021-09-15 15:08] VITALS: BP 162/97
[2021-09-15] MEDS ORDERED: AMOX1TAB61 PO (15:52)
[2021-09-15] MEDS ORDERED: FERR325T72 PO (15:52)
[2021-09-15] MEDS ORDERED: POLY17PO52 PO (15:52)
[2021-09-15] MEDS ORDERED: ERGO500089 PO (15:52)
--- NOTE | 2021-09-15 15:55 | PDOC3 ---
Discharge Summary Visit Information Date of Admission: Sep 12, 2021 Date of Discharge: Sep 16, 2021 Final Diagnosis microcytic anemia UTI acute blood loss anemia weakness, debility hypercalcemia constipation elevated CEA, cystic ovarian mass vitamin D deficiency dehydration urinary retention Problems Medical Problems: (1) Hypercalcemia Status: Acute (2) Urinary retention Status: Acute (3) UTI (urinary tract infection) Status: Acute Brief Hospital Course Allergies Allergies Coded Allergies Type Severity Reaction Last Updated Verified No Known Drug Allergies 08/08/18 No Vital Signs Vital Signs Date Time Temp Pulse Resp B/P (MAP) Pulse Ox O2 Delivery O2 Flow Rate FiO2 09/15/21 15:08 98.6 89 20 162/97 (118) 99 Room Air 98.6 Lab Results Laboratory Tests Test 09/14/21 12:45 White Blood Count 10.3 x10^3/uL (4.0-11.0) Red Blood Count 3.33 x10^6/uL (3.50-5.40) Hemoglobin 8.2 g/dL (12.0-15.5) Hematocrit 27.7 % (36.0-47.0) Mean Corpuscular Volume 83 fL (79-100) Mean Corpuscular Hemoglobin 25 pg (25-35) Mean Corpuscular Hemoglobin Concent 30 g/dL (31-37) Red Cell Distribution Width 18.0 % (11.5-14.5) Platelet Count 447 x10^3/uL (140-400) Sodium Level 145 mmol/L (136-145) Potassium Level 3.6 mmol/L (3.5-5.1) Chloride Level 107 mmol/L (98-107) Carbon Dioxide Level 28 mmol/L (21-32) Anion Gap 10 (6-14) Blood Urea Nitrogen 9 mg/dL (7-20) Creatinine 0.7 mg/dL (0.6-1.0) Estimated GFR (Cockcroft-Gault) 103.3 Glucose Level 99 mg/dL (70-99) Calcium Level 10.7 mg/dL (8.5-10.1) Iron Level 16 ug/dL (50-170) Total Iron Binding Capacity 253 ug/dL (250-450) Iron Saturation 6 % (15-34) Brief Hospital Course Ms. Araiza is a 61 old admti with bleeding, thought to be urinary bleeding, but UA neg, yellow colored, UA showed LE, treated for UTI, cx showed staph epi, urinary rentention from constipation, has ostomy from prior obnstruction, 3 years ago, path was benign, here. needs f./u with LAW OFFICE RECEPTIONIST, Dr. Abdul saw here, he would prefer she see retirement plan counselor ONC for biopsy of endometrium and possibly ovary, refer to [facility], john, discussed with patient. IV iron given for iron def. anemia, unable to void on day of DC, will DC with vargas, needs URO follow up and labor and delivery registered nurse onc f/u listed above Discharge Information Condition at Discharge: Improved Follow Up: Weeks Disposition/Orders: D/C to Home Scheduled Amoxicillin/Potassium Clav (Augmentin 875-125 Tablet) 1 Each Tablet, 1 TAB PO BID for UTI for 5 Days, #10 Ref 0 Prescribed by: LIZ SCHMITT on 09/15/211551 Ergocalciferol (Vitamin D2) (Vitamin D2) 1,250 Mcg Capsule, 50,000 UNIT PO WEEKLY for vitamin D replacement, #7 Prescribed by: LIZ SCHMITT on 09/15/211551 Ferrous Sulfate (Feosol) 325 Mg Tablet, 325 MG PO DAILYWBKFT for iron deficient, #100 Prescribed by: LIZ SCHMITT on 09/15/21 155 Polyethylene Glycol 3350 (Polyethylene Glycol 3350) 17 Gm Powd.pack, 17 GM PO DAILY for prevent constipation, #30 Prescribed by: LIZ SCHMITT on 09/15/21 155 Discontinued Medications Oxycodone/Apap 5-325 (Percocet 5-325 Mg Tablet ) 1 Each Tablet, 2 TAB PO PRN Q4HRS PRN for PAIN, #30 Ref 0 Prescribed by: Sarah Woodruff on 08/17/18 0918 Patient Instructions Patient Instructions 2 visits face to face need for f/u discussed, < 30 min today Justicifation of Admission Dx: Justifications for Admission: Justification of Admission Dx: Yes LIZ SCHMITT MD Sep 15, 2021 15:55
--- NOTE | 2021-09-15 17:55 | NUR ---
Vargas removed around 1130 pt has not voided. Bladder scanned 702ml of urine. Paged Dr. Uribe. Received orders to reinsert vargas. Updated patient. She states she would like to void on her own states it does not hurt or feel full.
[2021-09-15] MEDS: cefTRIAXone IV Push 1 GM VIAL. IVP SCH (18:06)
[2021-09-15 19:25] VITALS: BP 170/94
[2021-09-15 23:21] VITALS: BP 158/71
[2021-09-16] MEDS: IV NORMAL SALINE 1000ML BAG 1,000 ML IV SCH ×2 (00:30→08:49)
[2021-09-16 03:07] VITALS: BP 131/75
[2021-09-16 07:20] VITALS: BP 132/86
[2021-09-16] MEDS: LACTOBACILLUS RHAMNOSUS GG 1 CAPSULE. PO SCH (08:47)
[2021-09-16] MEDS: FERROUS SULFATE 325 MG TABLET. PO SCH (08:47)
[2021-09-16] MEDS: POLYETHYLENE GLYCOL 3350 17 GM PACKET. PO SCH (08:48)
[2021-09-16 11:18] VITALS: BP 140/84
--- NOTE | 2021-09-16 13:33 | PDOC ---
[employer] PROGRESS NOTE Date of Service DOS: DATE: 09/16/21 TIME: 13:32 Chief Complaint Chief Complaint LATE ENTRY, pt seen 09/15, dc plan, then unable to void urine, 700 mls, vargas replaced late microcytic anemia UTI acute blood loss anemia weakness, debility hypercalcemia constipation elevated CEA vitamin D deficiency dehydration History of Present Illness History of Present Illness pt seen 09/15, tried to DC 09/13/21: Patient seen and examined Chart Reviewed Discussed with RN Patient doing well Vitals/I&O Vitals/I&O: Vital Signs Date Time Temp Pulse Resp B/P (MAP) Pulse Ox O2 Delivery O2 Flow Rate FiO2 09/16/21 11:18 98.3 89 18 140/84 (102) 98 Room Air 98.3 I & O 09/15/21 09/15/21 09/16/21 15:00 23:00 07:00 Intake Total 240 ml 360 ml 300 ml Output Total 200 ml Balance 240 ml 160 ml 300 ml Physical Exam General: Alert, Oriented X3, Cooperative Heart: Regular rate Lungs: Clear Abdomen: Soft, Other (distended) Extremities: No edema Skin: No significant lesion Assessment and Plan Assessmemt and Plan Problems Medical Problems: (1) Hypercalcemia Status: Acute (2) Urinary retention Status: Acute (3) UTI (urinary tract infection) Status: Acute Comment Review of Relevant I have reviewed the following items dionisio (where applicable) has been applied. Justifications for Admission Other Justification Hypercalcemia and hematuria LIZ SCHMITT MD Sep 16, 2021 13:33
--- NOTE | 2021-09-16 13:34 | NUR ---
Pt discharged home with self care. Discharge instructions and prescriptions discussed. Pt verbalized understanding. IV removed. Cummings to remain in place encouraged pt to call to schedule urology follow up jas. Pt assisted to wheelchair and was secured in car with family.
--- NOTE | 2021-09-16 14:04 | NUR ---
SW following. Discussed with RN, discharge order for home with self care.
[2021-09-16 15:13] LABS: CEA 1.7 ng/mL (0.0-4.7)
== END 2021-09-16 13:36 | disposition home or self-care (01) | DRG 690 ==
LOC: ER 13:17 → 4 NORTH 16:28 → ER 17:10
PROVIDERS: ADMIT Internal Medicine; ATTEND Internal Medicine
DX: N13.6 Pyonephrosis (principal); D62 Acute posthemorrhagic anemia; R18.8 Other ascites; K59.00 Constipation, unspecified; N17.9 Acute kidney failure, unspecified; E83.52 Hypercalcemia; D50.9 Iron deficiency anemia, unspecified; E86.0 Dehydration; E87.6 Hypokalemia; I70.8 Atherosclerosis of other arteries; K43.5 Parastomal hernia without obstruction or gangrene; N83.9 Noninflammatory disorder of ovary, fallopian tube and broad ligament, unspecified; Z93.3 Colostomy status; B95.7 Other staphylococcus as the cause of diseases classified elsewhere
CPT/HCPCS: 36415; 51702; 71250; 74176; 76856; 80048; 80053; 81001; 82306; 82378; 83540; 83550; 83735; 83970; 85025; 85027; 86304; 87086; 93005; 96361; 96374; A4314; J0360; J0696; J1756; J7030; 99285-25; G0378; Q0163

== ENCOUNTER 2021-10-07 16:06 | Inpatient (IN) | payer SELFPAY ==
[~2021-10-07] VITALS: Ht 157.5 cm; Wt 67.8 kg
[~2021-10-07 16:06] MED LIST changes: +AMOX1TAB61 PO; +ERGO500089 PO; +FERR325T72 PO; +POLY17PO52 PO
[2021-10-07] MEDS ORDERED: IV NORMAL SALINE 1000ML BAG 1,000 ML IV ONE ×4 (16:45→22:30)
[2021-10-07] MEDS ORDERED: METOCLOPRAMIDE HCL 10 MG/2 ML VIAL. IVP ONE (16:45)
[2021-10-07 17:15] LABS: BASO % 0 % (0-3); EOS % 0 % (0-3); HEMATOCRIT 35.8 % (36.0-47.0); HEMOGLOBIN 10.9 g/dL (12.0-15.5); LYMPH # 0.3 x10^3/uL (1.0-4.8); LYMPH % 3 % (24-48); MEAN CORPUSCULAR HEMOGLOBIN 26 pg (25-35); MEAN CORPUSCULAR HGB CONC 30 g/dL (31-37); MEAN CORPUSCULAR VOLUME 86 fL (79-100); MONO # 0.5 x10^3/uL (0.0-1.1); MONO % 4 % (0-9); NEUT # 10.3 x10^3/uL (1.8-7.7); NEUT % 93 % (31-73); PLATELET COUNT 538 x10^3/uL (140-400); RED BLOOD COUNT 4.15 x10^6/uL (3.50-5.40); RED CELL DISTRIBUTION WIDTH 23.2 % (11.5-14.5); WHITE BLOOD COUNT 11.1 x10^3/uL (4.0-11.0)
[2021-10-07 17:59] LABS: ALBUMIN 2.9 g/dL (3.4-5.0); ALBUMIN/GLOBULIN RATIO 0.5 (1.0-1.7); CREATININE 7.9 mg/dL (0.6-1.0); GFR 6.3; POTASSIUM 4.9 mmol/L (3.5-5.1); TOTAL BILIRUBIN 0.3 mg/dL (0.2-1.0); TOTAL PROTEIN 8.2 g/dL (6.4-8.2)
[2021-10-07 18:03] LABS: CALCIUM 14.3 mg/dL (8.5-10.1)
[2021-10-07 18:43] LABS: % LYMPHS 3 % (24-48); % MONOS 3 % (0-10); % SEGS 94 % (35-66); PLT ESTIMATE INCREASED (ADEQUATE)
[2021-10-07 18:44] LABS: BURR CELLS FEW
[2021-10-07 18:45] LABS: ANISOCYTOSIS MOD; OVALOCYTES FEW
[2021-10-07 18:46] LABS: BIZZARE CELLS OCC; POLYCHROMASIA SLIGHT
--- NOTE | 2021-10-07 19:36 | RAD ---
EXAM: CT ABDOMEN/PELVIS WITHOUT CONTRAST. HISTORY: Abdominal distention, colostomy obstruction. TECHNIQUE: Computed tomography of the abdomen and pelvis was performed without intravenous contrast. One or more of the following individualized dose reduction techniques were utilized for this examinat ion: 1. Automated exposure control. 2. Adjustment of the mA and/or kV according to patient size. 3. Use of iterative reconstruction technique. COMPARISON: 09/12/2021. FINDINGS: Lung windows through the visualized portions of the bases reveal a trace left pleural effus ion with associated atelectasis. Bone windows reveal grade 1 anterolisthesis at L4-5. There is at jany st moderate central canal stenosis at this level. A moderate hiatal hernia is distended with fluid. The proximal small bowel is mildly distended but th e distal small bowel is decompressed. There is a right midabdominal ostomy. There is moderate to larg e parastomal hernia containing ascites and loops of the distal colon. The distal colon is filled with stool consistent with constipation. No clear abnormalities appreciated at that stoma itself. Multiple pelvic masses most likely reflect uterine fibroids and measure up to 6.7 x 5.3 cm. The bladd er is decompressed by a Cummings catheter. There is moderate to large ascites. The liver, gallbladder, pancreas, adrenal glands, spleen and kidn eys are unremarkable without contrast. There are no pathologically enlarged lymph nodes. IMPRESSION: 1. A moderate to large parastomal hernia contains ascites and multiple loops of the distal colon. Cor relate for constipation as a cause of ostomy obstruction. Stenosis at the ostomy cannot be excluded b y CT. 2. Moderate to large ascites. 3. Multiple pelvic masses most likely reflect uterine fibroids. 4. Moderate hiatal hernia. Electronically signed by: Serge Ansari MD (10/07/2021 7:34 PM) [facility]
--- NOTE | 2021-10-07 21:29 | PHYS DOC ---
Past Medical History Past Medical History: No Pertinent History Additional Past Medical Histor: Colostomy Past Surgical History: Other Additional Past Surgical Histo: colostomy Smoking Status: Never Smoker Alcohol Use: None Drug Use: None General Adult EDM: Chief Complaint: NAUSEA/VOMITING/DIARRHEA HPI: HPI: Patient is a 61 year old female who presents the ED today complaining of 9 out of 10 right sided abdominal pain, abdominal distention, nausea and vomiting, symptoms began 4 days ago. Patient is also complaining of abdominal distention. Patient denies anything specifically exacerbating or relieving her pain. She states she was seen in the hospital and admitted last month for the same abdominal pain as well as urinary retention. She states she was discharged on 09/15/2021 with Vargas catheter. She states she has noted minimal to no drainage from her colostomy bag for 4-5 days. She states she had a colon resection in 2018. Review of Systems: Review of Systems: Constitutional: Denies fever or chills. [] Eyes: Denies change in visual acuity. [] HENT: Denies nasal congestion or sore throat. [] Respiratory: Denies cough or shortness of breath. [] Cardiovascular: Denies chest pain or edema. [] GI: Reports abdominal pain, distention, nausea, vomiting, denies bloody stools o r diarrhea. [] : Denies dysuria. [] Musculoskeletal: Denies back pain or joint pain. [] Integument: Denies rash. [] Neurologic: Denies headache, focal weakness or sensory changes. [] Psychiatric: Denies depression or anxiety. [] Heart Score: C/O Chest Pain: N/A Risk Factors: Risk Factors: DM, Current or recent (<one month) smoker, HTN, HLP, family history of CAD, obesity. Risk Scores: Score 0 - 3: 2.5% MACE over next 6 weeks - Discharge Home Score 4 - 6: 20.3% MACE over next 6 weeks - Admit for Clinical Observation Score 7 - 10: 72.7% MACE over next 6 weeks - Early Invasive Strategies Current Medications: Current Medications Medications (Trade) Dose Ordered Sig/Yvonne Start Time Stop Time Status Last Admin Dose Admin Metoclopramide HCl (Reglan Vial) 10 mg 1X ONCE 10/07/21 16:45 10/07/21 16:46 DC 10/07/21 17:09 10 MG Sodium Chloride 1,000 ml @ 1,000 mls/hr 1X ONCE 10/07/21 16:45 10/07/21 17:44 DC 10/07/21 18:04 1,000 MLS/HR Allergies: Allergies: Allergies Coded Allergies Type Severity Reaction Last Updated Verified No Known Drug Allergies 08/08/18 No Physical Exam: PE: Constitutional: Patient appears to have had a significant weight loss, no acute distress, non-toxic appearance. [] HENT: Normocephalic, atraumatic, bilateral external ears normal, oropharynx moist, no oral exudates, nose normal. [] Eyes: PERRLA, EOMI, conjunctiva normal, no discharge. [] Neck: Normal range of motion, no tenderness, supple, no stridor. [] Cardiovascular: Tachycardic Lungs & Thorax: Bilateral breath sounds clear to auscultation [] Abdomen: Right upper quadrant is rounded and distended, colostomy to the right upper quadrant, bowel sounds normal, abdomen is firm around the colostomy, no drainage on colostomy bag, no masses, no pulsatile masses. [] vargas catheter in place with dark urine Skin: Warm, dry, no erythema, no rash. [] Back: No tenderness, no CVA tenderness. [] Extremities: No tenderness, no cyanosis, no clubbing, ROM intact, no edema. [] Neurologic: Alert and oriented X 3, normal motor function, normal sensory function, no focal deficits noted. [] Psychologic: Affect normal, judgement normal, mood normal. [] Current Patient Data: Labs: Laboratory Tests Test 10/07/21 16:59 White Blood Count 11.1 x10^3/uL (4.0-11.0) H Red Blood Count 4.15 x10^6/uL (3.50-5.40) Hemoglobin 10.9 g/dL (12.0-15.5) L Hematocrit 35.8 % (36.0-47.0) L Mean Corpuscular Volume 86 fL (79-100) Mean Corpuscular Hemoglobin 26 pg (25-35) Mean Corpuscular Hemoglobin Concent 30 g/dL (31-37) L Red Cell Distribution Width 23.2 % (11.5-14.5) H Platelet Count 538 x10^3/uL (140-400) H Neutrophils (%) (Auto) 93 % (31-73) H Lymphocytes (%) (Auto) 3 % (24-48) L Monocytes (%) (Auto) 4 % (0-9) Eosinophils (%) (Auto) 0 % (0-3) Basophils (%) (Auto) 0 % (0-3) Neutrophils # (Auto) 10.3 x10^3/uL (1.8-7.7) H Lymphocytes # (Auto) 0.3 x10^3/uL (1.0-4.8) L Monocytes # (Auto) 0.5 x10^3/uL (0.0-1.1) Eosinophils # (Auto) 0.0 x10^3/uL (0.0-0.7) Basophils # (Auto) 0.0 x10^3/uL (0.0-0.2) Segmented Neutrophils % 94 % (35-66) H Lymphocytes % 3 % (24-48) L Monocytes % 3 % (0-10) Platelet Estimate Increased (ADEQUATE) Polychromasia Slight Anisocytosis Mod Ovalocytes Few Neha Cells Few RBC Morphology Bizarre Forms Occ Sodium Level 135 mmol/L (136-145) L Potassium Level 4.9 mmol/L (3.5-5.1) Chloride Level 90 mmol/L (98-107) L Carbon Dioxide Level 21 mmol/L (21-32) Anion Gap 24 (6-14) H Blood Urea Nitrogen 89 mg/dL (7-20) H Creatinine 7.9 mg/dL (0.6-1.0) H Estimated GFR (Cockcroft-Gault) 6.3 BUN/Creatinine Ratio 11 (6-20) Glucose Level 99 mg/dL (70-99) Lactic Acid Level 2.6 mmol/L (0.4-2.0) H Calcium Level 14.3 mg/dL (8.5-10.1) *H Total Bilirubin 0.3 mg/dL (0.2-1.0) Aspartate Amino Transferase (AST) 18 U/L (15-37) Alanine Aminotransferase (ALT) 7 U/L (14-59) L Alkaline Phosphatase 101 U/L (46-116) Creatine Kinase 60 U/L (26-192) Total Protein 8.2 g/dL (6.4-8.2) Albumin 2.9 g/dL (3.4-5.0) L Albumin/Globulin Ratio 0.5 (1.0-1.7) L Lipase 36 U/L (73-393) L Procalcitonin 3.87 ng/mL (0.00-0.10) H Laboratory Tests 10/07/21 16:59 Laboratory Tests 10/07/21 16:59 Vital Signs: Vital Signs Date Time Temp Pulse Resp B/P (MAP) Pulse Ox O2 Delivery O2 Flow Rate FiO2 10/07/21 20:30 108 18 142/92 (109) 98 Room Air 10/07/21 16:06 96.9 96.9 EKG: EKG: [] Radiology/Procedures: Radiology/Procedures: []PROCEDURE: CT ABDOMEN PELVIS WO CONTRAST EXAM: CT ABDOMEN/PELVIS WITHOUT CONTRAST. HISTORY: Abdominal distention, colostomy obstruction. TECHNIQUE: Computed tomography of the abdomen and pelvis was performed without intravenous contrast. One or more of the following individualized dose reduction techniques were utilized for this examination: 1. Automated exposure control. 2. Adjustment of the mA and/or kV according to patient size. 3. Use of iterative reconstruction technique. COMPARISON: 09/12/2021. FINDINGS: Lung windows through the visualized portions of the bases reveal a trace left pleural effusion with associated atelectasis. Bone windows reveal grade 1 anterolisthesis at L4-5. There is at least moderate central canal stenosis at this level. A moderate hiatal hernia is distended with fluid. The proximal small bowel is mildly distended but the distal small bowel is decompressed. There is a right midabdominal ostomy. There is moderate to large parastomal hernia containing ascites and loops of the distal colon. The distal colon is filled with stool consistent with constipation. No clear abnormalities appreciated at that stoma itself. Multiple pelvic masses most likely reflect uterine fibroids and measure up to 6.7 x 5.3 cm. The bladder is decompressed by a Vargas catheter. There is moderate to large ascites. The liver, gallbladder, pancreas, adrenal glands, spleen and kidneys are unremarkable without contrast. There are no pathologically enlarged lymph nodes. IMPRESSION: 1. A moderate to large parastomal hernia contains ascites and multiple loops of the distal colon. Correlate for constipation as a cause of ostomy obstruction. Stenosis at the ostomy cannot be excluded by CT. 2. Moderate to large ascites. 3. Multiple pelvic masses most likely reflect uterine fibroids. 4. Moderate hiatal hernia. Electronically signed by: Serge Ansari MD (10/07/2021 7:34 PM) [facility] DICTATED and SIGNED BY: JOHNNA ANSARI MD DATE: 10/07/21 [id number] 0 Course & Med Decision Making: Course & Med Decision Making Pertinent Labs and Imaging studies reviewed. (See chart for details) This is a 7-year-old female patient presented to the ED today complaining of abdominal pain, abdominal distention, nausea, vomiting, with no output in her colostomy symptoms began 4 to 5 days ago. Vitals on arrival to the ED temperature 96.9, heart rate 102, respiration 20, blood pressure 156/102, O2 sats 98% on room air CBC with a WBC of 11.1, hemoglobin 10.9 with hematocrit of 35.8. CMP with creatinine of 7.9 and BUN of 89, no previous history of kidney failure. Patient was started on IV fluids, consulted with who requested we continue IV fluids. Calcium 14.3-patient appears to has a suspicious mass concerning for ovarian CA noted in her visit last month. She was refereed to [facility] Spoke with Dr. Uribe who accepted patient for admission Spoke with Dr. Arevalo concerning patient's CT results. He will follow up with patient tomorrow Pedro Disclaimer: Pedro Disclaimer: This electronic medical record was generated, in whole or in part, using a voice recognition dictation system. Departure Departure Impression: Primary Impression: Abdominal pain Qualified Codes: R10.11 - Right upper quadrant pain Additional Impressions: Nausea and vomiting Qualified Codes: R11.2 - Nausea with vomiting, unspecified Acute renal failure Qualified Codes: N17.9 - Acute kidney failure, unspecified Hypercalcemia Disposition: ADMITTED INPATIENT Condition: STABLE Referrals: NO PCP (PCP) JULIA HASTINGS [facility] Oct 07, 2021 21:29
[2021-10-07] MEDS ORDERED: ONDANSETRON PF 4 MG/2 ML VIAL. IVP PRN ×2 (22:15→22:30)
[2021-10-07] MEDS ORDERED: fentaNYL PF VIAL 100 MCG/2 ML VIAL IVP PRN (22:15)
[2021-10-07] MEDS ORDERED: SALIVA STIMULANT AGENT 44ML SPRAY BOTTLE. PO PRN (22:30)
--- NOTE | 2021-10-07 22:46 | PDOC1 ---
History and Physical Date of Admission Date of Admission DATE: 10/07/21 TIME: 22:40 Source Source: Chart review, Patient History of Present Illness History of Present Illness Greer Araiza is a 61 year old female admit with marked right sided abdominal pain, w. abdominal distention, nausea and vomiting, symptoms began 4 days ago. She complains of mouth dryness and is thirsty. She was DC her awhile ago with ovarian mass and has not followed up, was rec to see [facility] and given places to go, Dr. Abdul was consulted and recommended this plan Patient denies anything specifically exacerbating or relieving her pain. She states she was seen in the hospital and admitted last month for the same abdominal pain as well as urinary retention. She was discharged on 09/15/2021 with Vargas catheter due to retention due to mass and returns with vargas. . She states she has noted minimal to no drainage from her colostomy bag for 4- 5 days. She states she had a colon resection in 2018 Dr. Arevalo Past Medical History Past Medical History vit D def. ostomy from colon obs 2018 prob ovarian or endometrial cancer Cardiovascular: No pertinent hx Pulmonary: No pertinent hx GI: No pertinent hx, Constipation Heme/Onc: No pertinent hx Hepatobiliary: No pertinent hx Psych: No pertinent hx Rheumatologic: No pertinent hx Infectious disease: No pertinent hx Past Surgical History Past Surgical History: Other, No pertinent history Family History Family History: No Significant Social History Smoke: No ALCOHOL: none Drugs: None Current Problem List Problem List Problems Medical Problems: (1) Abdominal pain Status: Acute (2) Acute renal failure Status: Acute (3) Hypercalcemia Status: Acute (4) Nausea and vomiting Status: Acute Current Medications Current Medications Current Medications Sodium Chloride 1,000 ml @ 1,000 mls/hr 1X ONCE IV Last administered on 10/07/21at 17:09; Start 10/07/21 at 16:45; Stop 10/07/21 at 17:44; Status DC Metoclopramide HCl (Reglan Vial) 10 mg 1X ONCE IVP Last administered on 10/07/21at 17:09; Start 10/07/21 at 16:45; Stop 10/07/21 at 16:46; Status DC Sodium Chloride 1,000 ml @ 1,000 mls/hr 1X ONCE IV Last administered on 10/07/21at 18:04; Start 10/07/21 at 16:45; Stop 10/07/21 at 17:44; Status DC Sodium Chloride 1,000 ml @ 1,000 mls/hr 1X ONCE IV ; Start 10/07/21 at 18:45; Stop 10/07/21 at 19:44; Status DC Ondansetron HCl (Zofran) 4 mg PRN Q8HRS PRN IVP NAUSEA/VOMITING 1ST CHOICE; Start 10/07/21 at 22:15; Stop 10/07/21 at 22:21; Status DC Fentanyl Citrate (Fentanyl 2ml Vial) 50 mcg PRN Q1HR PRN IVP SEVERE PAIN 7-10; Start 10/07/21 at 22:15; Stop 10/08/21 at 22:14 Sodium Chloride 1,000 ml @ 125 mls/hr 1X ONCE IV ; Start 10/07/21 at 22:30; Stop 10/08/21 at 06:29 Saliva Substitute (Biotene Moisturizing Mouth) 2 spray PRN Q15MIN PRN PO DRY MOUTH; Start 10/07/21 at 22:30 Ondansetron HCl (Zofran) 4 mg PRN Q8HRS PRN IVP NAUSEA/VOMITING 1ST CHOICE; Start 10/07/21 at 22:30 Active Scripts Active Augmentin 875-125 Tablet (Amoxicillin/Potassium Clav) 1 Each Tablet 1 Tab PO BID 5 Days Feosol (Ferrous Sulfate) 325 Mg Tablet 325 Mg PO [id number] Polyethylene Glycol 3350 17 Gm Powd.pack 17 Gm PO DAILY Vitamin D2 (Ergocalciferol (Vitamin D2)) 1,250 Mcg Capsule 50,000 Unit PO WEEKLY Allergies Allergies: Coded Allergies: No Known Drug Allergies (Unverified , 08/08/18) ROS General: YES: Chills, Fatigue, Malaise PSYCHOLOGICAL ROS: YES: Anxiety Eyes: No Blurry vision, No Decreased vision, No Double vision, No Dry eyes, No Excessive tearing, No Eye Pain, No Itchy Eyes, No Loss of vision, No Photophobia, No Scotomata, No Uses contacts, No Uses glasses, No Other HEENT: No: Heacaches, Visual Changes, Hearing change, Nasal congestion, Nasal discharge, Oral lesions, Sinus pain, Sore Throat, Epistaxis, Sneezing, Snoring, Tinnitus, Vertigo, Vocal changes, Other Respiratory: No: Cough, Hemoptysis, Orthopnea, Pleuritic Pain, Shortness of breath, SOB with excertion, Sputum Changes, Stridor, Tachypnea, Wheezing, Other Cardiovascular: No Chest Pain, No Palpitations, No Orthopnea, No Paroxysmal Noc. Dyspnea, No Edema, No Lt Headedness, No Other Gastrointestinal: Yes Nausea, Yes Abdominal Pain, Yes Constipation Genitourinary: YES Other (has vargas); No Dysuria, No Frequency, No Incontinence, No Hematuria, No Retention, No Discharge, No Urgency, No Pain, No Flank Pain, No , No , No , No , No , No , No Musculoskeletal: No Gait Disturbance, No Joint Pain, No Joint Stiffness, No Joint Swelling, No Muscle Pain, No Muscular Weakness, No Pain In:, No Swelling In:, No Other Neurological: No Behavorial Changes, No Bowel/Bladder ControlChng, No Confusion, No Dizziness, No Gait Disturbance, No Headaches, No Impaired Coord/balance, No Memory Loss, No Numbness/Tingling, No Seizures, No Speech Problems, No Tremors, No Visual Changes, No Weakness, No Other Skin: No Dry Skin, No Eczema, No Hair Changes, No Lumps, No Mole Changes, No Mottling, No Nail Changes, No Pruritus, No Rash, No Skin Lesion Changes, No Other, No Acne Physical Exam General: Alert, mild distress HEENT: PERRLA, EOMI Lungs: Clear to auscultation Heart: no thrills Abdomen: Soft Extremities: No clubbing, No edema, Normal pulses Skin: No rashes Neuro: Normal speech, Normal tone Psych/Mental Status: Mental status NL, Mood NL Vitals Vitals Vital Signs Date Time Temp Pulse Resp B/P (MAP) Pulse Ox O2 Delivery O2 Flow Rate FiO2 10/07/21 20:30 108 18 142/92 (109) 98 Room Air 10/07/21 16:06 96.9 96.9 Labs Labs Laboratory Tests Test 10/07/21 16:59 10/07/21 21:05 White Blood Count 11.1 x10^3/uL (4.0-11.0) Red Blood Count 4.15 x10^6/uL (3.50-5.40) Hemoglobin 10.9 g/dL (12.0-15.5) Hematocrit 35.8 % (36.0-47.0) Mean Corpuscular Volume 86 fL (79-100) Mean Corpuscular Hemoglobin 26 pg (25-35) Mean Corpuscular Hemoglobin Concent 30 g/dL (31-37) Red Cell Distribution Width 23.2 % (11.5-14.5) Platelet Count 538 x10^3/uL (140-400) Neutrophils (%) (Auto) 93 % (31-73) Lymphocytes (%) (Auto) 3 % (24-48) Monocytes (%) (Auto) 4 % (0-9) Eosinophils (%) (Auto) 0 % (0-3) Basophils (%) (Auto) 0 % (0-3) Neutrophils # (Auto) 10.3 x10^3/uL (1.8-7.7) Lymphocytes # (Auto) 0.3 x10^3/uL (1.0-4.8) Monocytes # (Auto) 0.5 x10^3/uL (0.0-1.1) Eosinophils # (Auto) 0.0 x10^3/uL (0.0-0.7) Basophils # (Auto) 0.0 x10^3/uL (0.0-0.2) Segmented Neutrophils % 94 % (35-66) Lymphocytes % 3 % (24-48) Monocytes % 3 % (0-10) Platelet Estimate Increased (ADEQUATE) Polychromasia Slight Anisocytosis Mod Ovalocytes Few Neha Cells Few RBC Morphology Bizarre Forms Occ Sodium Level 135 mmol/L (136-145) Potassium Level 4.9 mmol/L (3.5-5.1) Chloride Level 90 mmol/L (98-107) Carbon Dioxide Level 21 mmol/L (21-32) Anion Gap 24 (6-14) Blood Urea Nitrogen 89 mg/dL (7-20) Creatinine 7.9 mg/dL (0.6-1.0) Estimated GFR (Cockcroft-Gault) 6.3 BUN/Creatinine Ratio 11 (6-20) Glucose Level 99 mg/dL (70-99) Lactic Acid Level 2.6 mmol/L (0.4-2.0) 2.7 mmol/L (0.4-2.0) Calcium Level 14.3 mg/dL (8.5-10.1) Total Bilirubin 0.3 mg/dL (0.2-1.0) Aspartate Amino Transf (AST/SGOT) 18 U/L (15-37) Alanine Aminotransferase (ALT/SGPT) 7 U/L (14-59) Alkaline Phosphatase 101 U/L (46-116) Creatine Kinase 60 U/L (26-192) Total Protein 8.2 g/dL (6.4-8.2) Albumin 2.9 g/dL (3.4-5.0) Albumin/Globulin Ratio 0.5 (1.0-1.7) Lipase 36 U/L (73-393) Procalcitonin 3.87 ng/mL (0.00-0.10) Laboratory Tests Test 10/07/21 16:59 10/07/21 21:05 White Blood Count 11.1 x10^3/uL (4.0-11.0) Red Blood Count 4.15 x10^6/uL (3.50-5.40) Hemoglobin 10.9 g/dL (12.0-15.5) Hematocrit 35.8 % (36.0-47.0) Mean Corpuscular Volume 86 fL (79-100) Mean Corpuscular Hemoglobin 26 pg (25-35) Mean Corpuscular Hemoglobin Concent 30 g/dL (31-37) Red Cell Distribution Width 23.2 % (11.5-14.5) Platelet Count 538 x10^3/uL (140-400) Neutrophils (%) (Auto) 93 % (31-73) Lymphocytes (%) (Auto) 3 % (24-48) Monocytes (%) (Auto) 4 % (0-9) Eosinophils (%) (Auto) 0 % (0-3) Basophils (%) (Auto) 0 % (0-3) Neutrophils # (Auto) 10.3 x10^3/uL (1.8-7.7) Lymphocytes # (Auto) 0.3 x10^3/uL (1.0-4.8) Monocytes # (Auto) 0.5 x10^3/uL (0.0-1.1) Eosinophils # (Auto) 0.0 x10^3/uL (0.0-0.7) Basophils # (Auto) 0.0 x10^3/uL (0.0-0.2) Segmented Neutrophils % 94 % (35-66) Lymphocytes % 3 % (24-48) Monocytes % 3 % (0-10) Platelet Estimate Increased (ADEQUATE) Polychromasia Slight Anisocytosis Mod Ovalocytes Few Roe Cells Few RBC Morphology Bizarre Forms Occ Sodium Level 135 mmol/L (136-145) Potassium Level 4.9 mmol/L (3.5-5.1) Chloride Level 90 mmol/L (98-107) Carbon Dioxide Level 21 mmol/L (21-32) Anion Gap 24 (6-14) Blood Urea Nitrogen 89 mg/dL (7-20) Creatinine 7.9 mg/dL (0.6-1.0) Estimated GFR (Cockcroft-Gault) 6.3 BUN/Creatinine Ratio 11 (6-20) Glucose Level 99 mg/dL (70-99) Lactic Acid Level 2.6 mmol/L (0.4-2.0) 2.7 mmol/L (0.4-2.0) Calcium Level 14.3 mg/dL (8.5-10.1) Total Bilirubin 0.3 mg/dL (0.2-1.0) Aspartate Amino Transf (AST/SGOT) 18 U/L (15-37) Alanine Aminotransferase (ALT/SGPT) 7 U/L (14-59) Alkaline Phosphatase 101 U/L (46-116) Creatine Kinase 60 U/L (26-192) Total Protein 8.2 g/dL (6.4-8.2) Albumin 2.9 g/dL (3.4-5.0) Albumin/Globulin Ratio 0.5 (1.0-1.7) Lipase 36 U/L (73-393) Procalcitonin 3.87 ng/mL (0.00-0.10) VTE Prophylaxis Ordered VTE Prophylaxis Devices: No VTE Pharmacological Prophylaxi: Yes Assessment/Plan Assessment/Plan acute renal failure, vasomotor nephropathy, IV fluid given acute colon obstruction, on CT scan, consult who placed her ostomy for prior obstruction Hx elevated CEA, cystic ovarian mass, likley ovarian cancer with hypercalcemia microcytic anemia weakness, debility constipation Hx vitamin D deficiency Justifications for Admission Other Justification Hypercalcemia and hematuria LIZ SCHMITT MD Oct 07, 2021 22:46
[2021-10-07 23:00] VITALS: BP 133/88
[2021-10-07] MEDS: IV NORMAL SALINE 1000ML BAG 1,000 ML IV SCH (23:00)
[2021-10-08 03:00] VITALS: BP 148/85
[2021-10-08 04:41] LABS: BASO % 0 % (0-3); EOS % 0 % (0-3); HEMATOCRIT 30.6 % (36.0-47.0); HEMOGLOBIN 9.8 g/dL (12.0-15.5); LYMPH # 0.5 x10^3/uL (1.0-4.8); LYMPH % 5 % (24-48); MEAN CORPUSCULAR HEMOGLOBIN 27 pg (25-35); MEAN CORPUSCULAR HGB CONC 32 g/dL (31-37); MEAN CORPUSCULAR VOLUME 85 fL (79-100); MONO # 0.7 x10^3/uL (0.0-1.1); MONO % 6 % (0-9); NEUT # 9.2 x10^3/uL (1.8-7.7); NEUT % 89 % (31-73); PLATELET COUNT 547 x10^3/uL (140-400); RED BLOOD COUNT 3.62 x10^6/uL (3.50-5.40); RED CELL DISTRIBUTION WIDTH 23.5 % (11.5-14.5); WHITE BLOOD COUNT 10.4 x10^3/uL (4.0-11.0)
[2021-10-08 05:04] LABS: ALBUMIN 2.4 g/dL (3.4-5.0); ALBUMIN/GLOBULIN RATIO 0.4 (1.0-1.7); GFR 6.2; MAGNESIUM 3.5 mg/dL (1.8-2.4); POTASSIUM 3.7 mmol/L (3.5-5.1); TOTAL BILIRUBIN 0.3 mg/dL (0.2-1.0); TOTAL PROTEIN 7.8 g/dL (6.4-8.2)
[2021-10-08 05:12] LABS: CALCIUM 13.5 mg/dL (8.5-10.1)
[2021-10-08 07:00] VITALS: BP 143/92
[2021-10-08] MEDS: HEPARIN for SUB-Q USE 5,000 UNIT/ML VIAL. SQ SCH ×2 (09:26→21:32)
[2021-10-08 11:00] VITALS: BP 144/103
--- NOTE | 2021-10-08 11:06 | PDOC2 ---
CONSULT Date of Consult Date of Consult DATE: 10/08/21 TIME: 10:35 Reason for Consult Reason for Consult: OSCAR Source Source: Chart review, Patient History of Present Illness Reason for Visit: Patient is a 61 year-old AA female presented to the ED on 10/06 complaining of abdominal pain, abdominal distention, nausea, vomiting, with no output in her colostomy symptoms began 4 to 5 days ago. She reports she also noted decrease UOP in her vargas bag aty least since Tuesday She denies any F/C. Currently denies any Vomiting. No CP or SOB . She reports her appetite has been normal and has been eating and drinking fluids normally Vitals on arrival to the ED temperature 96.9, heart rate 102, respiration 20, blood pressure 156/102, O2 sats 98% on room air Past Medical History Cardiovascular: No pertinent hx Pulmonary: No pertinent hx GI: No pertinent hx, Constipation Heme/Onc: No pertinent hx Hepatobiliary: No pertinent hx Psych: No pertinent hx Rheumatologic: No pertinent hx Infectious disease: No pertinent hx Past Surgical History Past Surgical History: Other, No pertinent history Family History Family History: No Significant Social History No ALCOHOL: none Drugs: None Current Problem List Problem List Problems Medical Problems: (1) Abdominal pain Status: Acute (2) Acute renal failure Status: Acute (3) Hypercalcemia Status: Acute (4) Nausea and vomiting Status: Acute Current Medications Current Medications Current Medications Sodium Chloride 1,000 ml @ 1,000 mls/hr 1X ONCE IV Last administered on 10/07/21at 17:09; Start 10/07/21 at 16:45; Stop 10/07/21 at 17:44; Status DC Metoclopramide HCl (Reglan Vial) 10 mg 1X ONCE IVP Last administered on 10/07/21at 17:09; Start 10/07/21 at 16:45; Stop 10/07/21 at 16:46; Status DC Sodium Chloride 1,000 ml @ 1,000 mls/hr 1X ONCE IV Last administered on 10/07/21at 18:04; Start 10/07/21 at 16:45; Stop 10/07/21 at 17:44; Status DC Sodium Chloride 1,000 ml @ 1,000 mls/hr 1X ONCE IV ; Start 10/07/21 at 18:45; Stop 10/07/21 at 19:44; Status DC Ondansetron HCl (Zofran) 4 mg PRN Q8HRS PRN IVP NAUSEA/VOMITING 1ST CHOICE; Start 10/07/21 at 22:15; Stop 10/07/21 at 22:21; Status DC Fentanyl Citrate (Fentanyl 2ml Vial) 50 mcg PRN Q1HR PRN IVP SEVERE PAIN 7-10; Start 10/07/21 at 22:15; Stop 10/08/21 at 22:14 Sodium Chloride 1,000 ml @ 125 mls/hr 1X ONCE IV Last administered on 10/07/21at 23:22; Start 10/07/21 at 22:30; Stop 10/08/21 at 06:29; Status DC Saliva Substitute (Biotene Moisturizing Mouth) 2 spray PRN Q15MIN PRN PO DRY MOUTH; Start 10/07/21 at 22:30 Ondansetron HCl (Zofran) 4 mg PRN Q8HRS PRN IVP NAUSEA/VOMITING 1ST CHOICE; Start 10/07/21 at 22:30 Sodium Chloride 1,000 ml @ 100 mls/hr Q10H IV ; Start 10/07/21 at 23:00 Heparin Sodium (Porcine) (Heparin Sodium) 5,000 unit BID SQ Last administered on 10/08/21at 09:26; Start 10/08/21 at 09:00 Active Scripts Active Feosol (Ferrous Sulfate) 325 Mg Tablet 325 Mg PO [id number] Polyethylene Glycol 3350 17 Gm Powd.pack 17 Gm PO DAILY Vitamin D2 (Ergocalciferol (Vitamin D2)) 1,250 Mcg Capsule 50,000 Unit PO WEEKLY Allergies Allergies: Coded Allergies: No Known Drug Allergies (Unverified , 08/08/18) ROS Review of System As per HPI, rest of the ROS is negative Physical Exam Physical Exam General: NAD HEENT: OM moist, On RA Neck Supple Lungs: Clear to auscultation, Non labored Heart: S1S2, RRR, Abdomen: Distended , Mild tender+ Extremities: No edema, Skin: No rashes, Neuro: Grossly Normal Vargas -since her recent admission , No CVA tenderness Psych Cooperative Vital Signs Vital Signs Date Time Temp Pulse Resp B/P (MAP) Pulse Ox O2 Delivery O2 Flow Rate FiO2 10/08/21 07:28 Room Air 10/08/21 07:00 98.2 116 18 143/92 (109) 98 98.2 Assessment & Plan OSCAR -ATN , ? Ostomy Obstruction per CT reports , On IVF since last night , No Improvement in Renal function, Anuric .CT Abdomen last night reported Normal Kidneys . Dialysis today after she gets Temp HDC , discussed with Dr Whitney , RN. Discussed treatment plan with [facility] Intermittent OSCAR - in 2017 and again Aug 2021- resolved at discharge , baseline Cr 0.7-0.9. HyperCalcemia- worse compared with recent admission suspect 2/2 OSCAR , cannot r/o associated with underlying Uterine/Ovarian malignancy , Dialysis today. Follow up with Gynec Onc Defer to primary Hydronephrosis- ON CT abdomen Aug 2021- Mild bilateral hydronephrosis and markedly distended urinary bladder without obstructing calculus. Correlate for urinary retention.. Vargas was placed , still has indwelling vargas CT done last night reported Normal Kidneys - no mention of Hydronephrosis S/P sigmoid colectomy with end colostomy RUQ ,Repair of colovesical fistula . No ouput from Colostomy per patient and Nursing. General Surgery Consult. Discu ssed with Dr Whitney Hernia- moderate to large parastomal hernia contains ascites and multiple loops of the distal colon. Correlate for constipation as a cause of ostomy obstruction. Stenosis at the ostomy cannot be excluded by CT. Moderate to large ascites Anemia- stable Uterine Fibroids- Multiple pelvic masses most likely reflect uterine fibroids on CT last night. Transvaginal US 09/14/21- findings are concerning for endometrial carcinoma . Left ovary is enlarged associated with a 6.5 cm unilo cular simple cyst, as well as increased soft tissue thickness of the ovary, raising concern for ovarian cystic neoplasm. Labs Labs Laboratory Tests Test 10/07/21 16:59 10/07/21 21:05 10/08/21 01:55 10/08/21 03:50 White Blood Count 11.1 x10^3/uL (4.0-11.0) 10.4 x10^3/uL (4.0-11.0) Red Blood Count 4.15 x10^6/uL (3.50-5.40) 3.62 x10^6/uL (3.50-5.40) Hemoglobin 10.9 g/dL (12.0-15.5) 9.8 g/dL (12.0-15.5) Hematocrit 35.8 % (36.0-47.0) 30.6 % (36.0-47.0) Mean Corpuscular Volume 86 fL (79-100) 85 fL (79-100) Mean Corpuscular Hemoglobin 26 pg (25-35) 27 pg (25-35) Mean Corpuscular Hemoglobin Concent 30 g/dL (31-37) 32 g/dL (31-37) Red Cell Distribution Width 23.2 % (11.5-14.5) 23.5 % (11.5-14.5) Platelet Count 538 x10^3/uL (140-400) 547 x10^3/uL (140-400) Neutrophils (%) (Auto) 93 % (31-73) 89 % (31-73) Lymphocytes (%) (Auto) 3 % (24-48) 5 % (24-48) Monocytes (%) (Auto) 4 % (0-9) 6 % (0-9) Eosinophils (%) (Auto) 0 % (0-3) 0 % (0-3) Basophils (%) (Auto) 0 % (0-3) 0 % (0-3) Neutrophils # (Auto) 10.3 x10^3/uL (1.8-7.7) 9.2 x10^3/uL (1.8-7.7) Lymphocytes # (Auto) 0.3 x10^3/uL (1.0-4.8) 0.5 x10^3/uL (1.0-4.8) Monocytes # (Auto) 0.5 x10^3/uL (0.0-1.1) 0.7 x10^3/uL (0.0-1.1) Eosinophils # (Auto) 0.0 x10^3/uL (0.0-0.7) 0.0 x10^3/uL (0.0-0.7) Basophils # (Auto) 0.0 x10^3/uL (0.0-0.2) 0.0 x10^3/uL (0.0-0.2) Segmented Neutrophils % 94 % (35-66) Lymphocytes % 3 % (24-48) Monocytes % 3 % (0-10) Platelet Estimate Increased (ADEQUATE) Polychromasia Slight Anisocytosis Mod Ovalocytes Few Neha Cells Few RBC Morphology Bizarre Forms Occ Sodium Level 135 mmol/L (136-145) 141 mmol/L (136-145) Potassium Level 4.9 mmol/L (3.5-5.1) 3.7 mmol/L (3.5-5.1) Chloride Level 90 mmol/L (98-107) 95 mmol/L (98-107) Carbon Dioxide Level 21 mmol/L (21-32) 24 mmol/L (21-32) Anion Gap 24 (6-14) 22 (6-14) Blood Urea Nitrogen 89 mg/dL (7-20) 91 mg/dL (7-20) Creatinine 7.9 mg/dL (0.6-1.0) 8.0 mg/dL (0.6-1.0) Estimated GFR (Cockcroft-Gault) 6.3 6.2 BUN/Creatinine Ratio 11 (6-20) 11 (6-20) Glucose Level 99 mg/dL (70-99) 90 mg/dL (70-99) Lactic Acid Level 2.6 mmol/L (0.4-2.0) 2.7 mmol/L (0.4-2.0) Calcium Level 14.3 mg/dL (8.5-10.1) 13.5 mg/dL (8.5-10.1) Total Bilirubin 0.3 mg/dL (0.2-1.0) 0.3 mg/dL (0.2-1.0) Aspartate Amino Transf (AST/SGOT) 18 U/L (15-37) 11 U/L (15-37) Alanine Aminotransferase (ALT/SGPT) 7 U/L (14-59) 7 U/L (14-59) Alkaline Phosphatase 101 U/L (46-116) 80 U/L (46-116) Creatine Kinase 60 U/L (26-192) Total Protein 8.2 g/dL (6.4-8.2) 7.8 g/dL (6.4-8.2) Albumin 2.9 g/dL (3.4-5.0) 2.4 g/dL (3.4-5.0) Albumin/Globulin Ratio 0.5 (1.0-1.7) 0.4 (1.0-1.7) Lipase 36 U/L (73-393) Procalcitonin 3.87 ng/mL (0.00-0.10) SARS-CoV-2 Antigen (Rapid) Negative (NEGATIVE) Ionized Calcium 1.69 mmol/L (1.13-1.32) Phosphorus Level 8.0 mg/dL (2.6-4.7) Magnesium Level 3.5 mg/dL (1.8-2.4) Laboratory Tests Test 10/07/21 16:59 10/07/21 21:05 10/08/21 01:55 10/08/21 03:50 White Blood Count 11.1 x10^3/uL (4.0-11.0) 10.4 x10^3/uL (4.0-11.0) Red Blood Count 4.15 x10^6/uL (3.50-5.40) 3.62 x10^6/uL (3.50-5.40) Hemoglobin 10.9 g/dL (12.0-15.5) 9.8 g/dL (12.0-15.5) Hematocrit 35.8 % (36.0-47.0) 30.6 % (36.0-47.0) Mean Corpuscular Volume 86 fL (79-100) 85 fL (79-100) Mean Corpuscular Hemoglobin 26 pg (25-35) 27 pg (25-35) Mean Corpuscular Hemoglobin Concent 30 g/dL (31-37) 32 g/dL (31-37) Red Cell Distribution Width 23.2 % (11.5-14.5) 23.5 % (11.5-14.5) Platelet Count 538 x10^3/uL (140-400) 547 x10^3/uL (140-400) Neutrophils (%) (Auto) 93 % (31-73) 89 % (31-73) Lymphocytes (%) (Auto) 3 % (24-48) 5 % (24-48) Monocytes (%) (Auto) 4 % (0-9) 6 % (0-9) Eosinophils (%) (Auto) 0 % (0-3) 0 % (0-3) Basophils (%) (Auto) 0 % (0-3) 0 % (0-3) Neutrophils # (Auto) 10.3 x10^3/uL (1.8-7.7) 9.2 x10^3/uL (1.8-7.7) Lymphocytes # (Auto) 0.3 x10^3/uL (1.0-4.8) 0.5 x10^3/uL (1.0-4.8) Monocytes # (Auto) 0.5 x10^3/uL (0.0-1.1) 0.7 x10^3/uL (0.0-1.1) Eosinophils # (Auto) 0.0 x10^3/uL (0.0-0.7) 0.0 x10^3/uL (0.0-0.7) Basophils # (Auto) 0.0 x10^3/uL (0.0-0.2) 0.0 x10^3/uL (0.0-0.2) Segmented Neutrophils % 94 % (35-66) Lymphocytes % 3 % (24-48) Monocytes % 3 % (0-10) Platelet Estimate Increased (ADEQUATE) Polychromasia Slight Anisocytosis Mod Ovalocytes Few Neha Cells Few RBC Morphology Bizarre Forms Occ Sodium Level 135 mmol/L (136-145) 141 mmol/L (136-145) Potassium Level 4.9 mmol/L (3.5-5.1) 3.7 mmol/L (3.5-5.1) Chloride Level 90 mmol/L (98-107) 95 mmol/L (98-107) Carbon Dioxide Level 21 mmol/L (21-32) 24 mmol/L (21-32) Anion Gap 24 (6-14) 22 (6-14) Blood Urea Nitrogen 89 mg/dL (7-20) 91 mg/dL (7-20) Creatinine 7.9 mg/dL (0.6-1.0) 8.0 mg/dL (0.6-1.0) Estimated GFR (Cockcroft-Gault) 6.3 6.2 BUN/Creatinine Ratio 11 (6-20) 11 (6-20) Glucose Level 99 mg/dL (70-99) 90 mg/dL (70-99) Lactic Acid Level 2.6 mmol/L (0.4-2.0) 2.7 mmol/L (0.4-2.0) Calcium Level 14.3 mg/dL (8.5-10.1) 13.5 mg/dL (8.5-10.1) Total Bilirubin 0.3 mg/dL (0.2-1.0) 0.3 mg/dL (0.2-1.0) Aspartate Amino Transf (AST/SGOT) 18 U/L (15-37) 11 U/L (15-37) Alanine Aminotransferase (ALT/SGPT) 7 U/L (14-59) 7 U/L (14-59) Alkaline Phosphatase 101 U/L (46-116) 80 U/L (46-116) Creatine Kinase 60 U/L (26-192) Total Protein 8.2 g/dL (6.4-8.2) 7.8 g/dL (6.4-8.2) Albumin 2.9 g/dL (3.4-5.0) 2.4 g/dL (3.4-5.0) Albumin/Globulin Ratio 0.5 (1.0-1.7) 0.4 (1.0-1.7) Lipase 36 U/L (73-393) Procalcitonin 3.87 ng/mL (0.00-0.10) SARS-CoV-2 Antigen (Rapid) Negative (NEGATIVE) Ionized Calcium 1.69 mmol/L (1.13-1.32) Phosphorus Level 8.0 mg/dL (2.6-4.7) Magnesium Level 3.5 mg/dL (1.8-2.4) Review All relevant outside records, renal labs, imaging studies, telemetry/EKG's were reviewed. Images Images CT ABDOMEN PELVIS WO CONTRAST EXAM: CT ABDOMEN/PELVIS WITHOUT CONTRAST. HISTORY: Abdominal distention, colostomy obstruction. TECHNIQUE: Computed tomography of the abdomen and pelvis was performed without intravenous contrast. One or more of the following individualized dose reduction techniques were utilized for this examination: 1. Automated exposure control. 2. Adjustment of the mA and/or kV according to patient size. 3. Use of iterative reconstruction technique. COMPARISON: 09/12/2021. FINDINGS: Lung windows through the visualized portions of the bases reveal a trace left pleural effusion with associated atelectasis. Bone windows reveal grade 1 anterolisthesis at L4-5. There is at least moderate central canal stenosis at this level. A moderate hiatal hernia is distended with fluid. The proximal small bowel is mildly distended but the distal small bowel is decompressed. There is a right midabdominal ostomy. There is moderate to large parastomal hernia containing ascites and loops of the distal colon. The distal colon is filled with stool consistent with constipation. No clear abnormalities appreciated at that stoma itself. Multiple pelvic masses most likely reflect uterine fibroids and measure up to 6.7 x 5.3 cm. The bladder is decompressed by a Vargas catheter. There is moderate to large ascites. The liver, gallbladder, pancreas, adrenal glands, spleen and kidneys are unremarkable without contrast. There are no pathologically enlarged lymph nodes. IMPRESSION: 1. A moderate to large parastomal hernia contains ascites and multiple loops of the distal colon. Correlate for constipation as a cause of ostomy obstruction. Stenosis at the ostomy cannot be excluded by CT. 2. Moderate to large ascites. 3. Multiple pelvic masses most likely reflect uterine fibroids. 4. Moderate hiatal hernia. Electronically signed by: Serge Ansari MD (10/07/2021 7:34 PM) [facility] JIN MD Oct 08, 2021 11:06
[2021-10-08] MEDS: IV NORMAL SALINE 1000ML BAG 1,000 ML IV SCH ×2 (12:20→19:00)
[2021-10-08] MEDS ORDERED: DIALYSIS PATIENT. MC PRN ×2 (12:30)
[2021-10-08] MEDS ORDERED: IV NORMAL SALINE 1000ML BAG 1,000 ML IV PRN ×2 (12:30)
--- NOTE | 2021-10-08 12:50 | NUR ---
SW following. Discussed with RN, pt from home with family, room air, NPO. Nephrology and Surgery following. Rapid COVID-19 negative. Med Assist following for self pay status. SW will continue to follow.
[2021-10-08] MEDS ORDERED: LIDOCAINE WITH 8.4% SOD BICARB 3 ML DISP.SYRIN. ONE (13:00)
[2021-10-08] MEDS ORDERED: LIDOCAINE WITH 8.4% SOD BICARB 3 ML DISP.SYRIN. INJ ONE (13:15)
--- NOTE | 2021-10-08 14:13 | RAD ---
Single view of the chest. 10/08/2021 1:46 PM Indication: Temporary dialysis catheter placement. Comparison: Chest radiograph August 11, 2018 Findings: There is right internal jugular temporary hemodialysis catheter with the tip at the low cav oatrial junction. No pneumothorax is seen. No definitive effusion is seen. No focal infiltrate is see n. Heart size is top normal. No acute osseous changes are identified. IMPRESSION: Right internal jugular temporary hemodialysis catheter with tip in expected position the low cavoatrial junction. Electronically signed by: Catrachito Sullivan MD (10/08/2021 2:11 PM) [id number]
--- NOTE | 2021-10-08 14:15 | PDOC2 ---
CONSULT Date of Consult Date of Consult DATE: 10/08/21 TIME: 13:28 Reason for Consult Reason for Consult: hernia, constipation Referring Physician Referring Physician: ER Identification/Chief Complaint Chief Complaint abdominal pain Source Source: Chart review, Patient History of Present Illness Reason for Visit: Patient well known from previous admissions. Likely hx of metastatic ovarian cancer. Needing quality internship/onc evaluation when previously here, CA 125 elevated constipation issues again has not followed up with Reactor Technician/onc Past Medical History Cardiovascular: No pertinent hx Pulmonary: No pertinent hx GI: No pertinent hx, Constipation Heme/Onc: No pertinent hx Hepatobiliary: No pertinent hx Psych: No pertinent hx Rheumatologic: No pertinent hx Infectious disease: No pertinent hx Past Surgical History Past Surgical History: Other, No pertinent history Family History Family History: No Significant Social History No ALCOHOL: none Drugs: None Current Problem List Problem List Problems Medical Problems: (1) Abdominal pain Status: Acute (2) Acute renal failure Status: Acute (3) Hypercalcemia Status: Acute (4) Nausea and vomiting Status: Acute Current Medications Current Medications Current Medications Sodium Chloride 1,000 ml @ 1,000 mls/hr 1X ONCE IV Last administered on 10/07/21at 17:09; Start 10/07/21 at 16:45; Stop 10/07/21 at 17:44; Status DC Metoclopramide HCl (Reglan Vial) 10 mg 1X ONCE IVP Last administered on 10/07/21at 17:09; Start 10/07/21 at 16:45; Stop 10/07/21 at 16:46; Status DC Sodium Chloride 1,000 ml @ 1,000 mls/hr 1X ONCE IV Last administered on 10/07/21at 18:04; Start 10/07/21 at 16:45; Stop 10/07/21 at 17:44; Status DC Sodium Chloride 1,000 ml @ 1,000 mls/hr 1X ONCE IV ; Start 10/07/21 at 18:45; Stop 10/07/21 at 19:44; Status DC Ondansetron HCl (Zofran) 4 mg PRN Q8HRS PRN IVP NAUSEA/VOMITING 1ST CHOICE; S tart 10/07/21 at 22:15; Stop 10/07/21 at 22:21; Status DC Fentanyl Citrate (Fentanyl 2ml Vial) 50 mcg PRN Q1HR PRN IVP SEVERE PAIN 7-10; Start 10/07/21 at 22:15; Stop 10/08/21 at 22:14 Sodium Chloride 1,000 ml @ 125 mls/hr 1X ONCE IV Last administered on 10/07/21at 23:22; Start 10/07/21 at 22:30; Stop 10/08/21 at 06:29; Status DC Saliva Substitute (Biotene Moisturizing Mouth) 2 spray PRN Q15MIN PRN PO DRY MOUTH; Start 10/07/21 at 22:30 Ondansetron HCl (Zofran) 4 mg PRN Q8HRS PRN IVP NAUSEA/VOMITING 1ST CHOICE; Start 10/07/21 at 22:30 Sodium Chloride 1,000 ml @ 100 mls/hr Q10H IV Last administered on 10/08/21at 12:20; Start 10/07/21 at 23:00 Heparin Sodium (Porcine) (Heparin Sodium) 5,000 unit BID SQ Last administered on 10/08/21at 09:26; Start 10/08/21 at 09:00 Sodium Chloride 1,000 ml @ 1,000 mls/hr Q1H PRN IV hypotension; Start 10/08/21 at 12:30; Stop 10/08/21 at 18:29 Sodium Chloride 1,000 ml @ 400 mls/hr Q2H30M PRN IV PATENCY; Start 10/08/21 at 12:30; Stop 10/09/21 at 00:29 Info (PHARMACY MONITORING -- do not chart) 1 each PRN DAILY PRN MC SEE COMMENTS; Start 10/08/21 at 12:30; Status UNV Info (PHARMACY MONITORING -- do not chart) 1 each PRN DAILY PRN MC SEE COMMENTS; Start 10/08/21 at 12:30 Lidocaine HCl (Buffered Lidocaine 1%) 3 ml STK-MED ONCE .ROUTE ; Start 10/08/21 at 13:00; Stop 10/08/21 at 13:00; Status DC Lidocaine HCl (Buffered Lidocaine 1%) 6 ml 1X ONCE INJ ; Start 10/08/21 at 13:15; Stop 10/08/21 at 13:16; Status DC Active Scripts Active Feosol (Ferrous Sulfate) 325 Mg Tablet 325 Mg PO DAILYWBKFT Polyethylene Glycol 3350 17 Gm Powd.pack 17 Gm PO DAILY Vitamin D2 (Ergocalciferol (Vitamin D2)) 1,250 Mcg Capsule 50,000 Unit PO WEEKLY Allergies Allergies: Coded Allergies: No Known Drug Allergies (Unverified , 08/08/18) ROS General: YES: Fatigue, Malaise; No: Chills PSYCHOLOGICAL ROS: YES: Anxiety; No: Depression Eyes: No Blurry vision, No Double vision HEENT: No: Heacaches, Sore Throat Hematological and Lymphatic: No: Bleeding Problems, Blood Clots Respiratory: No: Cough Cardiovascular: No Chest Pain, No Palpitations Gastrointestinal: Yes Other (see hpi) Musculoskeletal: Yes Muscular Weakness; No Joint Pain, No Muscle Pain Neurological: No Impaired Coord/balance, No Numbness/Tingling Skin: No Pruritus, No Rash Physical Exam General: Cooperative, No acute distress HEENT: Atraumatic, PERRLA Lungs: Clear to auscultation, Normal air movement Heart: Regular rate, Normal S1, Normal S2 Abdomen: Soft, Other (distended, parastomal hernia, no ostomy output ) Extremities: No clubbing, No cyanosis Skin: No rashes, No breakdown Neuro: Normal gait, Normal speech Psych/Mental Status: Mental status NL, Mood NL MUSCULOSKELETAL: No deformity, No swelling Vitals VITALS Vital Signs Date Time Temp Pulse Resp B/P (MAP) Pulse Ox O2 Delivery O2 Flow Rate FiO2 10/08/21 11:00 98.0 108 18 144/103 (117) 96 Room Air 98.0 Labs Labs Laboratory Tests Test 10/07/21 16:59 10/07/21 21:05 10/08/21 01:55 10/08/21 03:50 White Blood Count 11.1 x10^3/uL (4.0-11.0) 10.4 x10^3/uL (4.0-11.0) Red Blood Count 4.15 x10^6/uL (3.50-5.40) 3.62 x10^6/uL (3.50-5.40) Hemoglobin 10.9 g/dL (12.0-15.5) 9.8 g/dL (12.0-15.5) Hematocrit 35.8 % (36.0-47.0) 30.6 % (36.0-47.0) Mean Corpuscular Volume 86 fL (79-100) 85 fL (79-100) Mean Corpuscular Hemoglobin 26 pg (25-35) 27 pg (25-35) Mean Corpuscular Hemoglobin Concent 30 g/dL (31-37) 32 g/dL (31-37) Red Cell Distribution Width 23.2 % (11.5-14.5) 23.5 % (11.5-14.5) Platelet Count 538 x10^3/uL (140-400) 547 x10^3/uL (140-400) Neutrophils (%) (Auto) 93 % (31-73) 89 % (31-73) Lymphocytes (%) (Auto) 3 % (24-48) 5 % (24-48) Monocytes (%) (Auto) 4 % (0-9) 6 % (0-9) Eosinophils (%) (Auto) 0 % (0-3) 0 % (0-3) Basophils (%) (Auto) 0 % (0-3) 0 % (0-3) Neutrophils # (Auto) 10.3 x10^3/uL (1.8-7.7) 9.2 x10^3/uL (1.8-7.7) Lymphocytes # (Auto) 0.3 x10^3/uL (1.0-4.8) 0.5 x10^3/uL (1.0-4.8) Monocytes # (Auto) 0.5 x10^3/uL (0.0-1.1) 0.7 x10^3/uL (0.0-1.1) Eosinophils # (Auto) 0.0 x10^3/uL (0.0-0.7) 0.0 x10^3/uL (0.0-0.7) Basophils # (Auto) 0.0 x10^3/uL (0.0-0.2) 0.0 x10^3/uL (0.0-0.2) Segmented Neutrophils % 94 % (35-66) Lymphocytes % 3 % (24-48) Monocytes % 3 % (0-10) Platelet Estimate Increased (ADEQUATE) Polychromasia Slight Anisocytosis Mod Ovalocytes Few Union Cells Few RBC Morphology Bizarre Forms Occ Sodium Level 135 mmol/L (136-145) 141 mmol/L (136-145) Potassium Level 4.9 mmol/L (3.5-5.1) 3.7 mmol/L (3.5-5.1) Chloride Level 90 mmol/L (98-107) 95 mmol/L (98-107) Carbon Dioxide Level 21 mmol/L (21-32) 24 mmol/L (21-32) Anion Gap 24 (6-14) 22 (6-14) Blood Urea Nitrogen 89 mg/dL (7-20) 91 mg/dL (7-20) Creatinine 7.9 mg/dL (0.6-1.0) 8.0 mg/dL (0.6-1.0) Estimated GFR (Cockcroft-Gault) 6.3 6.2 BUN/Creatinine Ratio 11 (6-20) 11 (6-20) Glucose Level 99 mg/dL (70-99) 90 mg/dL (70-99) Lactic Acid Level 2.6 mmol/L (0.4-2.0) 2.7 mmol/L (0.4-2.0) Calcium Level 14.3 mg/dL (8.5-10.1) 13.5 mg/dL (8.5-10.1) Total Bilirubin 0.3 mg/dL (0.2-1.0) 0.3 mg/dL (0.2-1.0) Aspartate Amino Transf (AST/SGOT) 18 U/L (15-37) 11 U/L (15-37) Alanine Aminotransferase (ALT/SGPT) 7 U/L (14-59) 7 U/L (14-59) Alkaline Phosphatase 101 U/L (46-116) 80 U/L (46-116) Creatine Kinase 60 U/L (26-192) Total Protein 8.2 g/dL (6.4-8.2) 7.8 g/dL (6.4-8.2) Albumin 2.9 g/dL (3.4-5.0) 2.4 g/dL (3.4-5.0) Albumin/Globulin Ratio 0.5 (1.0-1.7) 0.4 (1.0-1.7) Lipase 36 U/L (73-393) Procalcitonin 3.87 ng/mL (0.00-0.10) SARS-CoV-2 Antigen (Rapid) Negative (NEGATIVE) Ionized Calcium 1.69 mmol/L (1.13-1.32) Phosphorus Level 8.0 mg/dL (2.6-4.7) Magnesium Level 3.5 mg/dL (1.8-2.4) Hepatitis B Surface Antigen Nonreactive (Nonreactive) Hepatitis B Surface Antibody Nonreactive Laboratory Tests Test 10/07/21 16:59 10/07/21 21:05 10/08/21 01:55 10/08/21 03:50 White Blood Count 11.1 x10^3/uL (4.0-11.0) 10.4 x10^3/uL (4.0-11.0) Red Blood Count 4.15 x10^6/uL (3.50-5.40) 3.62 x10^6/uL (3.50-5.40) Hemoglobin 10.9 g/dL (12.0-15.5) 9.8 g/dL (12.0-15.5) Hematocrit 35.8 % (36.0-47.0) 30.6 % (36.0-47.0) Mean Corpuscular Volume 86 fL (79-100) 85 fL (79-100) Mean Corpuscular Hemoglobin 26 pg (25-35) 27 pg (25-35) Mean Corpuscular Hemoglobin Concent 30 g/dL (31-37) 32 g/dL (31-37) Red Cell Distribution Width 23.2 % (11.5-14.5) 23.5 % (11.5-14.5) Platelet Count 538 x10^3/uL (140-400) 547 x10^3/uL (140-400) Neutrophils (%) (Auto) 93 % (31-73) 89 % (31-73) Lymphocytes (%) (Auto) 3 % (24-48) 5 % (24-48) Monocytes (%) (Auto) 4 % (0-9) 6 % (0-9) Eosinophils (%) (Auto) 0 % (0-3) 0 % (0-3) Basophils (%) (Auto) 0 % (0-3) 0 % (0-3) Neutrophils # (Auto) 10.3 x10^3/uL (1.8-7.7) 9.2 x10^3/uL (1.8-7.7) Lymphocytes # (Auto) 0.3 x10^3/uL (1.0-4.8) 0.5 x10^3/uL (1.0-4.8) Monocytes # (Auto) 0.5 x10^3/uL (0.0-1.1) 0.7 x10^3/uL (0.0-1.1) Eosinophils # (Auto) 0.0 x10^3/uL (0.0-0.7) 0.0 x10^3/uL (0.0-0.7) Basophils # (Auto) 0.0 x10^3/uL (0.0-0.2) 0.0 x10^3/uL (0.0-0.2) Segmented Neutrophils % 94 % (35-66) Lymphocytes % 3 % (24-48) Monocytes % 3 % (0-10) Platelet Estimate Increased (ADEQUATE) Polychromasia Slight Anisocytosis Mod Ovalocytes Few Neha Cells Few RBC Morphology Bizarre Forms Occ Sodium Level 135 mmol/L (136-145) 141 mmol/L (136-145) Potassium Level 4.9 mmol/L (3.5-5.1) 3.7 mmol/L (3.5-5.1) Chloride Level 90 mmol/L (98-107) 95 mmol/L (98-107) Carbon Dioxide Level 21 mmol/L (21-32) 24 mmol/L (21-32) Anion Gap 24 (6-14) 22 (6-14) Blood Urea Nitrogen 89 mg/dL (7-20) 91 mg/dL (7-20) Creatinine 7.9 mg/dL (0.6-1.0) 8.0 mg/dL (0.6-1.0) Estimated GFR (Cockcroft-Gault) 6.3 6.2 BUN/Creatinine Ratio 11 (6-20) 11 (6-20) Glucose Level 99 mg/dL (70-99) 90 mg/dL (70-99) Lactic Acid Level 2.6 mmol/L (0.4-2.0) 2.7 mmol/L (0.4-2.0) Calcium Level 14.3 mg/dL (8.5-10.1) 13.5 mg/dL (8.5-10.1) Total Bilirubin 0.3 mg/dL (0.2-1.0) 0.3 mg/dL (0.2-1.0) Aspartate Amino Transf (AST/SGOT) 18 U/L (15-37) 11 U/L (15-37) Alanine Aminotransferase (ALT/SGPT) 7 U/L (14-59) 7 U/L (14-59) Alkaline Phosphatase 101 U/L (46-116) 80 U/L (46-116) Creatine Kinase 60 U/L (26-192) Total Protein 8.2 g/dL (6.4-8.2) 7.8 g/dL (6.4-8.2) Albumin 2.9 g/dL (3.4-5.0) 2.4 g/dL (3.4-5.0) Albumin/Globulin Ratio 0.5 (1.0-1.7) 0.4 (1.0-1.7) Lipase 36 U/L (73-393) Procalcitonin 3.87 ng/mL (0.00-0.10) SARS-CoV-2 Antigen (Rapid) Negative (NEGATIVE) Ionized Calcium 1.69 mmol/L (1.13-1.32) Phosphorus Level 8.0 mg/dL (2.6-4.7) Magnesium Level 3.5 mg/dL (1.8-2.4) Hepatitis B Surface Antigen Nonreactive (Nonreactive) Hepatitis B Surface Antibody Nonreactive Assessment/Plan Assessment/Plan Will review with Dr Arevalo Concern for metastatic ovarian cancer hyperglycemia- renal is following consult, chart 25 min DARIAN JOHNSON APRN Oct 08, 2021 14:15
--- NOTE | 2021-10-08 14:18 | PDOC2 ---
CONSULT Date of Consult Date of Consult DATE: 10/08/21 TIME: 14:10 Reason for Consult Reason for Consult: Constipation Referring Physician Referring Physician: Dr. Uribe Identification/Chief Complaint Chief Complaint abd pain and fullness Source Source: Chart review, Patient History of Present Illness Reason for Visit: 61 yo F with recent admission secondary to abd pain and concern for ovarian and endometrial cancer. 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 Pt readmitted with constipation and abd distention. Past Medical History Cardiovascular: No pertinent hx Pulmonary: No pertinent hx GI: No pertinent hx, Constipation Heme/Onc: No pertinent hx Hepatobiliary: No pertinent hx Psych: No pertinent hx Rheumatologic: No pertinent hx Infectious disease: No pertinent hx Past Surgical History Past Surgical History: Other, No pertinent history Family History Family History: No Significant Social History No ALCOHOL: none Drugs: None Current Problem List Problem List Problems Medical Problems: (1) Abdominal pain Status: Acute (2) Acute renal failure Status: Acute (3) Hypercalcemia Status: Acute (4) Nausea and vomiting Status: Acute Current Medications Current Medications Current Medications Sodium Chloride 1,000 ml @ 1,000 mls/hr 1X ONCE IV Last administered on 10/07/21at 17:09; Start 10/07/21 at 16:45; Stop 10/07/21 at 17:44; Status DC Metoclopramide HCl (Reglan Vial) 10 mg 1X ONCE IVP Last administered on 10/07/21at 17:09; Start 10/07/21 at 16:45; Stop 10/07/21 at 16:46; Status DC Sodium Chloride 1,000 ml @ 1,000 mls/hr 1X ONCE IV Last administered on 10/07/21at 18:04; Start 10/07/21 at 16:45; Stop 10/07/21 at 17:44; Status DC Sodium Chloride 1,000 ml @ 1,000 mls/hr 1X ONCE IV ; Start 10/07/21 at 18:45; Stop 10/07/21 at 19:44; Status DC Ondansetron HCl (Zofran) 4 mg PRN Q8HRS PRN IVP NAUSEA/VOMITING 1ST CHOICE; Start 10/07/21 at 22:15; Stop 10/07/21 at 22:21; Status DC Fentanyl Citrate (Fentanyl 2ml Vial) 50 mcg PRN Q1HR PRN IVP SEVERE PAIN 7-10; Start 10/07/21 at 22:15; Stop 10/08/21 at 22:14 Sodium Chloride 1,000 ml @ 125 mls/hr 1X ONCE IV Last administered on 10/07/21at 23:22; Start 10/07/21 at 22:30; Stop 10/08/21 at 06:29; Status DC Saliva Substitute (Biotene Moisturizing Mouth) 2 spray PRN Q15MIN PRN PO DRY MOUTH; Start 10/07/21 at 22:30 Ondansetron HCl (Zofran) 4 mg PRN Q8HRS PRN IVP NAUSEA/VOMITING 1ST CHOICE; Start 10/07/21 at 22:30 Sodium Chloride 1,000 ml @ 100 mls/hr Q10H IV Last administered on 10/08/21at 12:20; Start 10/07/21 at 23:00 Heparin Sodium (Porcine) (Heparin Sodium) 5,000 unit BID SQ Last administered on 10/08/21at 09:26; Start 10/08/21 at 09:00 Sodium Chloride 1,000 ml @ 1,000 mls/hr Q1H PRN IV hypotension; Start 10/08/21 at 12:30; Stop 10/08/21 at 18:29 Sodium Chloride 1,000 ml @ 400 mls/hr Q2H30M PRN IV PATENCY; Start 10/08/21 at 12:30; Stop 10/09/21 at 00:29 Info (PHARMACY MONITORING -- do not chart) 1 each PRN DAILY PRN MC SEE COMMENTS; Start 10/08/21 at 12:30; Status UNV Info (PHARMACY MONITORING -- do not chart) 1 each PRN DAILY PRN MC SEE COMMENTS; Start 10/08/21 at 12:30 Lidocaine HCl (Buffered Lidocaine 1%) 3 ml STK-MED ONCE .ROUTE ; Start 10/08/21 at 13:00; Stop 10/08/21 at 13:00; Status DC Lidocaine HCl (Buffered Lidocaine 1%) 6 ml 1X ONCE INJ Last administered on 10/08/21at 13:15; Start 10/08/21 at 13:15; Stop 10/08/21 at 13:16; Status DC Active Scripts Active Feosol (Ferrous Sulfate) 325 Mg Tablet 325 Mg PO DAILYWBKFT Polyethylene Glycol 3350 17 Gm Powd.pack 17 Gm PO DAILY Vitamin D2 (Ergocalciferol (Vitamin D2)) 1,250 Mcg Capsule 50,000 Unit PO WEEKLY Allergies Allergies: Coded Allergies: No Known Drug Allergies (Unverified , 08/08/18) ROS Gastrointestinal: Yes Abdominal Pain, Yes Constipation Physical Exam General: Alert, Oriented X3, Cooperative, moderate distress HEENT: Atraumatic Lungs: Normal air movement Abdomen: Other (firm, distended, NTTP, ostomy viable but without output) Extremities: No clubbing, No cyanosis Skin: No rashes, No breakdown Vitals VITALS Vital Signs Date Time Temp Pulse Resp B/P (MAP) Pulse Ox O2 Delivery O2 Flow Rate FiO2 10/08/21 11:00 98.0 108 18 144/103 (117) 96 Room Air 98.0 Labs Labs Laboratory Tests Test 10/07/21 16:59 10/07/21 21:05 10/08/21 01:55 10/08/21 03:50 White Blood Count 11.1 x10^3/uL (4.0-11.0) 10.4 x10^3/uL (4.0-11.0) Red Blood Count 4.15 x10^6/uL (3.50-5.40) 3.62 x10^6/uL (3.50-5.40) Hemoglobin 10.9 g/dL (12.0-15.5) 9.8 g/dL (12.0-15.5) Hematocrit 35.8 % (36.0-47.0) 30.6 % (36.0-47.0) Mean Corpuscular Volume 86 fL (79-100) 85 fL (79-100) Mean Corpuscular Hemoglobin 26 pg (25-35) 27 pg (25-35) Mean Corpuscular Hemoglobin Concent 30 g/dL (31-37) 32 g/dL (31-37) Red Cell Distribution Width 23.2 % (11.5-14.5) 23.5 % (11.5-14.5) Platelet Count 538 x10^3/uL (140-400) 547 x10^3/uL (140-400) Neutrophils (%) (Auto) 93 % (31-73) 89 % (31-73) Lymphocytes (%) (Auto) 3 % (24-48) 5 % (24-48) Monocytes (%) (Auto) 4 % (0-9) 6 % (0-9) Eosinophils (%) (Auto) 0 % (0-3) 0 % (0-3) Basophils (%) (Auto) 0 % (0-3) 0 % (0-3) Neutrophils # (Auto) 10.3 x10^3/uL (1.8-7.7) 9.2 x10^3/uL (1.8-7.7) Lymphocytes # (Auto) 0.3 x10^3/uL (1.0-4.8) 0.5 x10^3/uL (1.0-4.8) Monocytes # (Auto) 0.5 x10^3/uL (0.0-1.1) 0.7 x10^3/uL (0.0-1.1) Eosinophils # (Auto) 0.0 x10^3/uL (0.0-0.7) 0.0 x10^3/uL (0.0-0.7) Basophils # (Auto) 0.0 x10^3/uL (0.0-0.2) 0.0 x10^3/uL (0.0-0.2) Segmented Neutrophils % 94 % (35-66) Lymphocytes % 3 % (24-48) Monocytes % 3 % (0-10) Platelet Estimate Increased (ADEQUATE) Polychromasia Slight Anisocytosis Mod Ovalocytes Few Neha Cells Few RBC Morphology Bizarre Forms Occ Sodium Level 135 mmol/L (136-145) 141 mmol/L (136-145) Potassium Level 4.9 mmol/L (3.5-5.1) 3.7 mmol/L (3.5-5.1) Chloride Level 90 mmol/L (98-107) 95 mmol/L (98-107) Carbon Dioxide Level 21 mmol/L (21-32) 24 mmol/L (21-32) Anion Gap 24 (6-14) 22 (6-14) Blood Urea Nitrogen 89 mg/dL (7-20) 91 mg/dL (7-20) Creatinine 7.9 mg/dL (0.6-1.0) 8.0 mg/dL (0.6-1.0) Estimated GFR (Cockcroft-Gault) 6.3 6.2 BUN/Creatinine Ratio 11 (6-20) 11 (6-20) Glucose Level 99 mg/dL (70-99) 90 mg/dL (70-99) Lactic Acid Level 2.6 mmol/L (0.4-2.0) 2.7 mmol/L (0.4-2.0) Calcium Level 14.3 mg/dL (8.5-10.1) 13.5 mg/dL (8.5-10.1) Total Bilirubin 0.3 mg/dL (0.2-1.0) 0.3 mg/dL (0.2-1.0) Aspartate Amino Transf (AST/SGOT) 18 U/L (15-37) 11 U/L (15-37) Alanine Aminotransferase (ALT/SGPT) 7 U/L (14-59) 7 U/L (14-59) Alkaline Phosphatase 101 U/L (46-116) 80 U/L (46-116) Creatine Kinase 60 U/L (26-192) Total Protein 8.2 g/dL (6.4-8.2) 7.8 g/dL (6.4-8.2) Albumin 2.9 g/dL (3.4-5.0) 2.4 g/dL (3.4-5.0) Albumin/Globulin Ratio 0.5 (1.0-1.7) 0.4 (1.0-1.7) Lipase 36 U/L (73-393) Procalcitonin 3.87 ng/mL (0.00-0.10) SARS-CoV-2 Antigen (Rapid) Negative (NEGATIVE) Ionized Calcium 1.69 mmol/L (1.13-1.32) Phosphorus Level 8.0 mg/dL (2.6-4.7) Magnesium Level 3.5 mg/dL (1.8-2.4) Hepatitis B Surface Antigen Nonreactive (Nonreactive) Hepatitis B Surface Antibody Nonreactive Laboratory Tests Test 10/07/21 16:59 10/07/21 21:05 10/08/21 01:55 10/08/21 03:50 White Blood Count 11.1 x10^3/uL (4.0-11.0) 10.4 x10^3/uL (4.0-11.0) Red Blood Count 4.15 x10^6/uL (3.50-5.40) 3.62 x10^6/uL (3.50-5.40) Hemoglobin 10.9 g/dL (12.0-15.5) 9.8 g/dL (12.0-15.5) Hematocrit 35.8 % (36.0-47.0) 30.6 % (36.0-47.0) Mean Corpuscular Volume 86 fL (79-100) 85 fL (79-100) Mean Corpuscular Hemoglobin 26 pg (25-35) 27 pg (25-35) Mean Corpuscular Hemoglobin Concent 30 g/dL (31-37) 32 g/dL (31-37) Red Cell Distribution Width 23.2 % (11.5-14.5) 23.5 % (11.5-14.5) Platelet Count 538 x10^3/uL (140-400) 547 x10^3/uL (140-400) Neutrophils (%) (Auto) 93 % (31-73) 89 % (31-73) Lymphocytes (%) (Auto) 3 % (24-48) 5 % (24-48) Monocytes (%) (Auto) 4 % (0-9) 6 % (0-9) Eosinophils (%) (Auto) 0 % (0-3) 0 % (0-3) Basophils (%) (Auto) 0 % (0-3) 0 % (0-3) Neutrophils # (Auto) 10.3 x10^3/uL (1.8-7.7) 9.2 x10^3/uL (1.8-7.7) Lymphocytes # (Auto) 0.3 x10^3/uL (1.0-4.8) 0.5 x10^3/uL (1.0-4.8) Monocytes # (Auto) 0.5 x10^3/uL (0.0-1.1) 0.7 x10^3/uL (0.0-1.1) Eosinophils # (Auto) 0.0 x10^3/uL (0.0-0.7) 0.0 x10^3/uL (0.0-0.7) Basophils # (Auto) 0.0 x10^3/uL (0.0-0.2) 0.0 x10^3/uL (0.0-0.2) Segmented Neutrophils % 94 % (35-66) Lymphocytes % 3 % (24-48) Monocytes % 3 % (0-10) Platelet Estimate Increased (ADEQUATE) Polychromasia Slight Anisocytosis Mod Ovalocytes Few Neha Cells Few RBC Morphology Bizarre Forms Occ Sodium Level 135 mmol/L (136-145) 141 mmol/L (136-145) Potassium Level 4.9 mmol/L (3.5-5.1) 3.7 mmol/L (3.5-5.1) Chloride Level 90 mmol/L (98-107) 95 mmol/L (98-107) Carbon Dioxide Level 21 mmol/L (21-32) 24 mmol/L (21-32) Anion Gap 24 (6-14) 22 (6-14) Blood Urea Nitrogen 89 mg/dL (7-20) 91 mg/dL (7-20) Creatinine 7.9 mg/dL (0.6-1.0) 8.0 mg/dL (0.6-1.0) Estimated GFR (Cockcroft-Gault) 6.3 6.2 BUN/Creatinine Ratio 11 (6-20) 11 (6-20) Glucose Level 99 mg/dL (70-99) 90 mg/dL (70-99) Lactic Acid Level 2.6 mmol/L (0.4-2.0) 2.7 mmol/L (0.4-2.0) Calcium Level 14.3 mg/dL (8.5-10.1) 13.5 mg/dL (8.5-10.1) Total Bilirubin 0.3 mg/dL (0.2-1.0) 0.3 mg/dL (0.2-1.0) Aspartate Amino Transf (AST/SGOT) 18 U/L (15-37) 11 U/L (15-37) Alanine Aminotransferase (ALT/SGPT) 7 U/L (14-59) 7 U/L (14-59) Alkaline Phosphatase 101 U/L (46-116) 80 U/L (46-116) Creatine Kinase 60 U/L (26-192) Total Protein 8.2 g/dL (6.4-8.2) 7.8 g/dL (6.4-8.2) Albumin 2.9 g/dL (3.4-5.0) 2.4 g/dL (3.4-5.0) Albumin/Globulin Ratio 0.5 (1.0-1.7) 0.4 (1.0-1.7) Lipase 36 U/L (73-393) Procalcitonin 3.87 ng/mL (0.00-0.10) SARS-CoV-2 Antigen (Rapid) Negative (NEGATIVE) Ionized Calcium 1.69 mmol/L (1.13-1.32) Phosphorus Level 8.0 mg/dL (2.6-4.7) Magnesium Level 3.5 mg/dL (1.8-2.4) Hepatitis B Surface Antigen Nonreactive (Nonreactive) Hepatitis B Surface Antibody Nonreactive Images Images CT with constipation, multiple pelvic masses, ascites, parastomal hernia, but does not appear to be source of obstruction Assessment/Plan Assessment/Plan pelvic masses given elevated calcium and ca 125, highly suspect malignancy gynecologic process. 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 MIC CALERO MD Oct 08, 2021 14:18
--- NOTE | 2021-10-08 14:33 | RAD ---
Procedure: Temporary hemodialysis catheter placement Sterility: All elements of maximal sterile barrier technique including the use of a cap, mask, steril e gown, sterile gloves, large sterile sheet, appropriate hand hygiene, and 2% chlorhexidine for cutan eous antisepsis (or acceptable alternative antiseptic per current guidelines) were followed for this procedure. Consent: The procedure was explained in its entirety to the patient or the patients designated repres entative by a member of the treatment team, including a discussion of the risks, benefits and commonl y accepted alternatives to the procedure, as well as the expected consequences of no therapy whatsoev er. Discussion of the risks included, but was not limited to, those that are most frequent and thos e that are rare but possibly severe or life-threatening, as well as the possibility of unforeseen com plications. Technique and Findings: Following informed consent, the patient was prepped and draped in the usual s terile fashion. Ultrasound interrogation of the right neck revealed patency and compressibility of t he right internal jugular vein. A 21-gauge micropuncture was then used to gain access to this vein u nder ultrasound guidance. A hard copy ultrasound image was recorded. A guidewire was advanced centra lly over which, following dilatation, a temporary dialysis catheter was placed. The new catheter wa s found to flush and aspirate normally. The catheter was secured in place. Sterile dressings were francis lied. No immediate complications were identified. IMPRESSION: Placement of a temporary dialysis catheter Electronically signed by: Catrachito Sullivan MD (10/08/2021 2:31 PM) [id number]
--- NOTE | 2021-10-08 18:37 | PDOC ---
[employer] PROGRESS NOTE Date of Service DOS: DATE: 10/08/21 TIME: 18:33 Chief Complaint Chief Complaint Assessment/Plan acute renal failure, vasomotor nephropathy, IV fluid given acute colon obstruction, on CT scan, consult who placed her ostomy for prior obstruction Hx elevated CEA, cystic ovarian mass, likley ovarian cancer with hypercalcemia microcytic anemia weakness, debility constipation Hx vitamin D deficiency History of Present Illness History of Present Illness 10/08 Patient evaluated examined at bedside. Alert oriented. Had just gotten dialysis cath placed going for dialysis today. Interesting case. 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 will see if any resources we can provide. Otherwise closely monitor renal function. Monitor ostomy output. Discussed with bedside RN. Vitals/I&O Vitals/I&O: Vital Signs Date Time Temp Pulse Resp B/P (MAP) Pulse Ox O2 Delivery O2 Flow Rate FiO2 10/08/21 11:00 98.0 108 18 144/103 (117) 96 Room Air 98.0 I & O 10/07/21 10/07/21 10/08/21 15:00 23:00 07:00 Intake Total 0 ml Output Total 25 ml Balance -25 ml Physical Exam General: Alert, Oriented X3, Cooperative, moderate distress Heart: Regular rate, Normal S1, Normal S2 Lungs: Clear Abdomen: Other (firm, distended, NTTP, ostomy viable but without output) Extremities: No clubbing, No cyanosis Skin: No rashes, No breakdown Labs Labs: Laboratory Tests Test 10/07/21 21:05 10/08/21 01:55 10/08/21 03:50 Lactic Acid Level 2.7 mmol/L (0.4-2.0) SARS-CoV-2 Antigen (Rapid) Negative (NEGATIVE) White Blood Count 10.4 x10^3/uL (4.0-11.0) Red Blood Count 3.62 x10^6/uL (3.50-5.40) Hemoglobin 9.8 g/dL (12.0-15.5) Hematocrit 30.6 % (36.0-47.0) Mean Corpuscular Volume 85 fL (79-100) Mean Corpuscular Hemoglobin 27 pg (25-35) Mean Corpuscular Hemoglobin Concent 32 g/dL (31-37) Red Cell Distribution Width 23.5 % (11.5-14.5) Platelet Count 547 x10^3/uL (140-400) Neutrophils (%) (Auto) 89 % (31-73) Lymphocytes (%) (Auto) 5 % (24-48) Monocytes (%) (Auto) 6 % (0-9) Eosinophils (%) (Auto) 0 % (0-3) Basophils (%) (Auto) 0 % (0-3) Neutrophils # (Auto) 9.2 x10^3/uL (1.8-7.7) Lymphocytes # (Auto) 0.5 x10^3/uL (1.0-4.8) Monocytes # (Auto) 0.7 x10^3/uL (0.0-1.1) Eosinophils # (Auto) 0.0 x10^3/uL (0.0-0.7) Basophils # (Auto) 0.0 x10^3/uL (0.0-0.2) Sodium Level 141 mmol/L (136-145) Potassium Level 3.7 mmol/L (3.5-5.1) Chloride Level 95 mmol/L (98-107) Carbon Dioxide Level 24 mmol/L (21-32) Anion Gap 22 (6-14) Blood Urea Nitrogen 91 mg/dL (7-20) Creatinine 8.0 mg/dL (0.6-1.0) Estimated GFR (Cockcroft-Gault) 6.2 BUN/Creatinine Ratio 11 (6-20) Glucose Level 90 mg/dL (70-99) Calcium Level 13.5 mg/dL (8.5-10.1) Ionized Calcium 1.69 mmol/L (1.13-1.32) Phosphorus Level 8.0 mg/dL (2.6-4.7) Magnesium Level 3.5 mg/dL (1.8-2.4) Total Bilirubin 0.3 mg/dL (0.2-1.0) Aspartate Amino Transf (AST/SGOT) 11 U/L (15-37) Alanine Aminotransferase (ALT/SGPT) 7 U/L (14-59) Alkaline Phosphatase 80 U/L (46-116) Total Protein 7.8 g/dL (6.4-8.2) Albumin 2.4 g/dL (3.4-5.0) Albumin/Globulin Ratio 0.4 (1.0-1.7) Hepatitis B Surface Antigen Nonreactive (Nonreactive) Hepatitis B Surface Antibody Nonreactive Assessment and Plan Assessmemt and Plan Problems Medical Problems: (1) Abdominal pain Status: Acute (2) Acute renal failure Status: Acute (3) Hypercalcemia Status: Acute (4) Nausea and vomiting Status: Acute Comment Review of Relevant I have reviewed the following items dionisio (where applicable) has been applied. Medications: Current Medications Medications (Trade) Dose Ordered Sig/Yvonne Route PRN Reason Start Time Stop Time Status Last Admin Dose Admin Sodium Chloride 1,000 ml @ 125 mls/hr 1X ONCE IV 10/07/21 22:30 10/08/21 06:29 DC 10/07/21 23:22 Sodium Chloride 1,000 ml @ 100 mls/hr Q10H IV 10/07/21 23:00 10/08/21 12:20 Heparin Sodium (Porcine) (Heparin Sodium) 5,000 unit BID SQ 10/08/21 09:00 10/08/21 09:26 Lidocaine HCl (Buffered Lidocaine 1%) 6 ml 1X ONCE INJ 10/08/21 13:15 10/08/21 13:16 DC 10/08/21 13:15 Justifications for Admission Other Justification Hypercalcemia and hematuria RUBIN JACK MD Oct 08, 2021 18:37
[2021-10-08 19:00] VITALS: BP 134/87
[2021-10-08 23:00] VITALS: BP 126/88
[2021-10-09 03:00] VITALS: BP 143/89
[2021-10-09] MEDS: IV NORMAL SALINE 1000ML BAG 1,000 ML IV SCH ×2 (05:54→21:09)
[2021-10-09 06:05] LABS: ALBUMIN 2.2 g/dL (3.4-5.0); GFR 8.7; PHOSPHORUS 6.4 mg/dL (2.6-4.7)
[2021-10-09 06:08] LABS: CALCIUM 13.4 mg/dL (8.5-10.1)
[2021-10-09 07:00] VITALS: BP 137/87
--- NOTE | 2021-10-09 09:23 | PDOC ---
DATE OF SERVICE DATE: 10/09/21 TIME: 09:19 SUBJECTIVE ROS No acute complaints No concerns voiced by nursing OBJECTIVE Vital Signs Vital Signs Date Time Temp Pulse Resp B/P (MAP) Pulse Ox O2 Delivery O2 Flow Rate FiO2 10/09/21 07:00 98.7 112 20 137/87 (104) 90 Room Air 98.7 I & 0 Intake and Output 10/09/21 07:00 Intake Total 1000 ml Output Total 25 ml Balance 975 ml Intake Oral 0 ml IV Total 1000 ml Output Urine Total 25 ml PHYSICAL EXAM Physical Exam General: NAD HEENT: OM moist, On RA Neck Supple Lungs: Clear to auscultation, Non labored Heart: S1S2, RRR, Abdomen: Distended , Mild tender+ Extremities: No edema, Skin: No rashes, Neuro: Grossly Normal Vargas -since her recent admission , No CVA tenderness Psych Cooperative DIAGNOSIS/ASSESSMENT Assessment & Plan OSCAR -ATN , ? Ostomy Obstruction per CT reports , No Improvement in Renal function, Anuric .CT Abdomen last night reported Normal Kidneys .Started on Dialysis on 10/08 ; dialysis again today . Discussed treatment plan with [facility] . Intermittent OSCAR - in 2017 and again Aug 2021- resolved at discharge , baseline Cr 0.7-0.9. HyperCalcemia- worse compared with recent admission associated with underlying Uterine/Ovarian malignancy and OSCAR , No improvent with dialysis; will use lower Ca Dialysate today . Recommend Gynec Onc Defer to primary Hydronephrosis- ON CT abdomen Aug 2021- Mild bilateral hydronephrosis and markedly distended urinary bladder without obstructing calculus. Correlate for urinary retention. has indwelling vargas since CT done last night reported Normal Kidneys - no mention of Hydronephrosis S/P sigmoid colectomy with end colostomy RUQ ,Repair of colovesical fistula . No ouput from Colostomy per patient and Nursing. General Surgery recommends transfer Hernia- moderate to large parastomal hernia contains ascites and multiple loops of the distal colon. Correlate for constipation as a cause of ostomy obstruction. Stenosis at the ostomy cannot be excluded by CT. Moderate to large ascites Anemia- stable Uterine Fibroids- Multiple pelvic masses most likely reflect uterine fibroids on CT on 10/07 . Transvaginal US 09/14/21- findings are concerning for endometrial carcinoma . Left ovary is enlarged associated with a 6.5 cm unilocular simple cyst, as well as increased soft tissue thickness of the ovary, raising concern for ovarian cystic neoplasm. ca 125 elevated as well COMMENT/RELEVANT DATA Meds Current Medications Medications (Trade) Dose Ordered Sig/Yvonne Start Time Stop Time Status Last Admin Dose Admin Fentanyl Citrate (Fentanyl 2ml Vial) 50 mcg PRN Q1HR PRN 10/07/21 22:15 10/08/21 22:14 DC Heparin Sodium (Porcine) (Heparin Sodium) 5,000 unit BID 10/08/21 09:00 10/08/21 21:32 5,000 UNIT Info (PHARMACY MONITORING -- do not chart) 1 each PRN DAILY PRN 10/08/21 12:30 Lidocaine HCl (Buffered Lidocaine 1%) 6 ml 1X ONCE 10/08/21 13:15 10/08/21 13:16 DC 10/08/21 13:15 3 ML Metoclopramide HCl (Reglan Vial) 10 mg 1X ONCE 10/07/21 16:45 10/07/21 16:46 DC 10/07/21 17:09 10 MG Ondansetron HCl (Zofran) 4 mg PRN Q8HRS PRN 10/07/21 22:30 Saliva Substitute (Biotene Moisturizing Mouth) 2 spray PRN Q15MIN PRN 10/07/21 22:30 Sodium Chloride 1,000 ml @ 400 mls/hr Q2H30M PRN 10/08/21 12:30 10/09/21 00:29 DC Lab Laboratory Tests Test 10/09/21 05:05 Sodium Level 139 mmol/L (136-145) Potassium Level 4.0 mmol/L (3.5-5.1) Chloride Level 98 mmol/L (98-107) Carbon Dioxide Level 23 mmol/L (21-32) Anion Gap 18 (6-14) Blood Urea Nitrogen 64 mg/dL (7-20) Creatinine 6.0 mg/dL (0.6-1.0) Estimated GFR (Cockcroft-Gault) 8.7 Glucose Level 81 mg/dL (70-99) Calcium Level 13.4 mg/dL (8.5-10.1) Phosphorus Level 6.4 mg/dL (2.6-4.7) Creatine Kinase 24 U/L (26-192) Albumin 2.2 g/dL (3.4-5.0) Results All relevant outside records, renal labs, imaging studies, telemetry/EKG's were reviewed. Justicifation of Admission Dx: Justifications for Admission: Justification of Admission Dx: Yes TERESA SIMONS MD Oct 09, 2021 09:23
[2021-10-09] MEDS: HEPARIN for SUB-Q USE 5,000 UNIT/ML VIAL. SQ SCH ×2 (09:49→21:16)
--- NOTE | 2021-10-09 10:27 | PDOC ---
[employer] PROGRESS NOTE Date of Service DOS: DATE: 10/09/21 TIME: 10:23 Chief Complaint Chief Complaint Assessment/Plan acute renal failure, vasomotor nephropathy, IV fluid given acute colon obstruction, on CT scan, consult who placed her ostomy for prior obstruction Hx elevated CEA, cystic ovarian mass, likley ovarian cancer with hypercalcemia microcytic anemia weakness, debility constipation Hx vitamin D deficiency History of Present Illness History of Present Illness 10/08 Patient evaluated examined at bedside. Alert oriented. Had just gotten dialysis cath placed going for dialysis today. Interesting case. 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 will see if any resources we can provide. Otherwise closely monitor renal function. Monitor ostomy output. Discussed with bedside RN. 10/09 Patient evaluate examined at bedside. Resting in bed easily awoken. Difficult to ascertain how much she really understands the severity of her medical conditions. Tried to explain to her situation with her kidneys and why she was on dialysis. She said she is worried about everything going on in her abdomen and she cannot continue to live like this. I expressed to her importance of following up with gynecology oncology after d/c from here however a long ways from d/c given kidney function on dialysis. Vitals/I&O Vitals/I&O: Vital Signs Date Time Temp Pulse Resp B/P (MAP) Pulse Ox O2 Delivery O2 Flow Rate FiO2 10/09/21 07:00 98.7 112 20 137/87 (104) 90 Room Air 98.7 I & O 10/08/21 10/08/21 10/09/21 15:00 23:00 07:00 Intake Total 1000 ml 0 ml 0 ml Output Total 25 ml 0 ml Balance 975 ml 0 ml 0 ml Physical Exam General: Alert, Oriented X3, Cooperative, moderate distress Heart: Regular rate, Normal S1, Normal S2 Lungs: Clear Abdomen: Other (firm, distended, NTTP, ostomy viable but without output) Extremities: No clubbing, No cyanosis Skin: No rashes, No breakdown Labs Labs: Laboratory Tests Test 10/09/21 05:05 Sodium Level 139 mmol/L (136-145) Potassium Level 4.0 mmol/L (3.5-5.1) Chloride Level 98 mmol/L (98-107) Carbon Dioxide Level 23 mmol/L (21-32) Anion Gap 18 (6-14) Blood Urea Nitrogen 64 mg/dL (7-20) Creatinine 6.0 mg/dL (0.6-1.0) Estimated GFR (Cockcroft-Gault) 8.7 Glucose Level 81 mg/dL (70-99) Calcium Level 13.4 mg/dL (8.5-10.1) Phosphorus Level 6.4 mg/dL (2.6-4.7) Creatine Kinase 24 U/L (26-192) Albumin 2.2 g/dL (3.4-5.0) Assessment and Plan Assessmemt and Plan Problems Medical Problems: (1) Abdominal pain Status: Acute (2) Acute renal failure Status: Acute (3) Hypercalcemia Status: Acute (4) Nausea and vomiting Status: Acute Comment Review of Relevant I have reviewed the following items dionisio (where applicable) has been applied. Medications: Current Medications Medications (Trade) Dose Ordered Sig/Yvonne Route PRN Reason Start Time Stop Time Status Last Admin Dose Admin Lidocaine HCl (Buffered Lidocaine 1%) 6 ml 1X ONCE INJ 10/08/21 13:15 10/08/21 13:16 DC 10/08/21 13:15 Justifications for Admission Other Justification Hypercalcemia and hematuria RUBIN JACK MD Oct 09, 2021 10:27
[2021-10-09] MEDS ORDERED: IV NORMAL SALINE 1000ML BAG 1,000 ML IV PRN ×2 (10:30)
[2021-10-09] MEDS ORDERED: DIALYSIS PATIENT. MC PRN ×2 (10:30)
[2021-10-09 11:00] VITALS: BP 129/90
--- NOTE | 2021-10-09 13:29 | NUR ---
SW following. Discussed with RN, pt had dialysis yesterday and likely will have again today. SW awaiting confirmation of whether dialysis is going to be a technician terminal and repeater need. Med Assist following for self pay status. SW will continue to follow.
--- NOTE | 2021-10-09 13:32 | PDOC ---
SURGICAL PROGRESS NOTE DATE: 10/09/21 TIME: 13:31 Subjective no bowel function cant continue this way Vital Signs Vital Signs Date Time Temp Pulse Resp B/P (MAP) Pulse Ox O2 Delivery O2 Flow Rate FiO2 10/09/21 11:00 98.4 108 18 129/90 (103) 100 Room Air 98.4 I&O Intake and Output 10/09/21 07:00 Intake Total 1000 ml Output Total 25 ml Balance 975 ml Intake Oral 0 ml IV Total 1000 ml Output Urine Total 25 ml General: Cooperative Abdomen: Other (distended ) Labs Laboratory Tests Test 10/07/21 16:59 10/07/21 21:05 10/08/21 01:55 10/08/21 03:50 White Blood Count 11.1 x10^3/uL (4.0-11.0) 10.4 x10^3/uL (4.0-11.0) Red Blood Count 4.15 x10^6/uL (3.50-5.40) 3.62 x10^6/uL (3.50-5.40) Hemoglobin 10.9 g/dL (12.0-15.5) 9.8 g/dL (12.0-15.5) Hematocrit 35.8 % (36.0-47.0) 30.6 % (36.0-47.0) Mean Corpuscular Volume 86 fL (79-100) 85 fL (79-100) Mean Corpuscular Hemoglobin 26 pg (25-35) 27 pg (25-35) Mean Corpuscular Hemoglobin Concent 30 g/dL (31-37) 32 g/dL (31-37) Red Cell Distribution Width 23.2 % (11.5-14.5) 23.5 % (11.5-14.5) Platelet Count 538 x10^3/uL (140-400) 547 x10^3/uL (140-400) Neutrophils (%) (Auto) 93 % (31-73) 89 % (31-73) Lymphocytes (%) (Auto) 3 % (24-48) 5 % (24-48) Monocytes (%) (Auto) 4 % (0-9) 6 % (0-9) Eosinophils (%) (Auto) 0 % (0-3) 0 % (0-3) Basophils (%) (Auto) 0 % (0-3) 0 % (0-3) Neutrophils # (Auto) 10.3 x10^3/uL (1.8-7.7) 9.2 x10^3/uL (1.8-7.7) Lymphocytes # (Auto) 0.3 x10^3/uL (1.0-4.8) 0.5 x10^3/uL (1.0-4.8) Monocytes # (Auto) 0.5 x10^3/uL (0.0-1.1) 0.7 x10^3/uL (0.0-1.1) Eosinophils # (Auto) 0.0 x10^3/uL (0.0-0.7) 0.0 x10^3/uL (0.0-0.7) Basophils # (Auto) 0.0 x10^3/uL (0.0-0.2) 0.0 x10^3/uL (0.0-0.2) Segmented Neutrophils % 94 % (35-66) Lymphocytes % 3 % (24-48) Monocytes % 3 % (0-10) Platelet Estimate Increased (ADEQUATE) Polychromasia Slight Anisocytosis Mod Ovalocytes Few Dilley Cells Few RBC Morphology Bizarre Forms Occ Sodium Level 135 mmol/L (136-145) 141 mmol/L (136-145) Potassium Level 4.9 mmol/L (3.5-5.1) 3.7 mmol/L (3.5-5.1) Chloride Level 90 mmol/L (98-107) 95 mmol/L (98-107) Carbon Dioxide Level 21 mmol/L (21-32) 24 mmol/L (21-32) Anion Gap 24 (6-14) 22 (6-14) Blood Urea Nitrogen 89 mg/dL (7-20) 91 mg/dL (7-20) Creatinine 7.9 mg/dL (0.6-1.0) 8.0 mg/dL (0.6-1.0) Estimated GFR (Cockcroft-Gault) 6.3 6.2 BUN/Creatinine Ratio 11 (6-20) 11 (6-20) Glucose Level 99 mg/dL (70-99) 90 mg/dL (70-99) Lactic Acid Level 2.6 mmol/L (0.4-2.0) 2.7 mmol/L (0.4-2.0) Calcium Level 14.3 mg/dL (8.5-10.1) 13.5 mg/dL (8.5-10.1) Total Bilirubin 0.3 mg/dL (0.2-1.0) 0.3 mg/dL (0.2-1.0) Aspartate Amino Transf (AST/SGOT) 18 U/L (15-37) 11 U/L (15-37) Alanine Aminotransferase (ALT/SGPT) 7 U/L (14-59) 7 U/L (14-59) Alkaline Phosphatase 101 U/L (46-116) 80 U/L (46-116) Creatine Kinase 60 U/L (26-192) Total Protein 8.2 g/dL (6.4-8.2) 7.8 g/dL (6.4-8.2) Albumin 2.9 g/dL (3.4-5.0) 2.4 g/dL (3.4-5.0) Albumin/Globulin Ratio 0.5 (1.0-1.7) 0.4 (1.0-1.7) Lipase 36 U/L (73-393) Procalcitonin 3.87 ng/mL (0.00-0.10) Coronavirus (COVID-19)(PCR) Not detected (NOT DETECTD) SARS-CoV-2 Antigen (Rapid) Negative (NEGATIVE) Ionized Calcium 1.69 mmol/L (1.13-1.32) Phosphorus Level 8.0 mg/dL (2.6-4.7) Magnesium Level 3.5 mg/dL (1.8-2.4) Hepatitis B Surface Antigen Nonreactive (Nonreactive) Hepatitis B Surface Antibody Nonreactive Hepatitis B Surface Antibody, Quant 4.3 mIU/mL (Immunity>9.9) Test 10/09/21 05:05 Sodium Level 139 mmol/L (136-145) Potassium Level 4.0 mmol/L (3.5-5.1) Chloride Level 98 mmol/L (98-107) Carbon Dioxide Level 23 mmol/L (21-32) Anion Gap 18 (6-14) Blood Urea Nitrogen 64 mg/dL (7-20) Creatinine 6.0 mg/dL (0.6-1.0) Estimated GFR (Cockcroft-Gault) 8.7 Glucose Level 81 mg/dL (70-99) Calcium Level 13.4 mg/dL (8.5-10.1) Phosphorus Level 6.4 mg/dL (2.6-4.7) Creatine Kinase 24 U/L (26-192) Albumin 2.2 g/dL (3.4-5.0) Laboratory Tests Test 10/09/21 05:05 Sodium Level 139 mmol/L (136-145) Potassium Level 4.0 mmol/L (3.5-5.1) Chloride Level 98 mmol/L (98-107) Carbon Dioxide Level 23 mmol/L (21-32) Anion Gap 18 (6-14) Blood Urea Nitrogen 64 mg/dL (7-20) Creatinine 6.0 mg/dL (0.6-1.0) Estimated GFR (Cockcroft-Gault) 8.7 Glucose Level 81 mg/dL (70-99) Calcium Level 13.4 mg/dL (8.5-10.1) Phosphorus Level 6.4 mg/dL (2.6-4.7) Creatine Kinase 24 U/L (26-192) Albumin 2.2 g/dL (3.4-5.0) Problem List Problems Medical Problems: (1) Abdominal pain Status: Acute (2) Acute renal failure Status: Acute (3) Hypercalcemia Status: Acute (4) Nausea and vomiting Status: Acute Assessment/Plan Recommend transfer to be evaluated by produce clerk onc or consideration of palliative care Justicifation of Admission Dx: Justifications for Admission: Justification of Admission Dx: Yes DARIAN JOHNSON APRN Oct 09, 2021 13:31
[2021-10-09 19:41] VITALS: BP 116/80
[2021-10-09 23:13] VITALS: BP 113/73
[2021-10-10] MEDS: IV NORMAL SALINE 1000ML BAG 1,000 ML IV SCH ×3 (01:00→21:11)
[2021-10-10 03:49] VITALS: BP 118/80
[2021-10-10 07:00] VITALS: BP 110/76
[2021-10-10 07:56] LABS: CALCIUM 11.8 mg/dL (8.5-10.1); CREATININE 3.7 mg/dL (0.6-1.0); GFR 15.1; POTASSIUM 3.4 mmol/L (3.5-5.1)
[2021-10-10] MEDS: HEPARIN for SUB-Q USE 5,000 UNIT/ML VIAL. SQ SCH ×2 (10:53→21:11)
[2021-10-10 11:00] VITALS: BP 127/76
--- NOTE | 2021-10-10 13:06 | PDOC ---
DATE OF SERVICE DATE: 10/10/21 TIME: 13:04 SUBJECTIVE ROS No acute complaints No concerns voiced by nursing OBJECTIVE Vital Signs Vital Signs Date Time Temp Pulse Resp B/P (MAP) Pulse Ox O2 Delivery O2 Flow Rate FiO2 10/10/21 11:00 97.4 107 24 127/76 (93) 93 Room Air 97.4 I & 0 Intake and Output 10/10/21 07:00 Output Total 0 ml Balance 0 ml Output Urine Total 0 ml PHYSICAL EXAM Physical Exam General: NAD HEENT: OM moist, On RA Neck Supple Lungs: Clear to auscultation, Non labored Heart: S1S2, RRR, Abdomen: Distended , Mild tender+ Extremities: No edema, Skin: No rashes, Neuro: Grossly Normal Vargas -since her recent admission , No CVA tenderness Psych Cooperative DIAGNOSIS/ASSESSMENT Assessment & Plan OSCAR -ATN , ? Ostomy Obstruction per CT reports , No Improvement in Renal function, Anuric .CT Abdomen reported Normal Kidneys .Started on Dialysis on 10/08 2nd treatment 10/09 ; Currently no indication for dialysis today Access Temp HDc . Intermittent OSCAR - in 2017 and again Aug 2021- resolved at discharge , baseline Cr 0.7-0.9. HyperCalcemia- worse compared with recent admission associated with underlying Uterine/Ovarian malignancy and OSCAR , trended down some . Recommend Gynec Onc Defer to primary Hydronephrosis- ON CT abdomen Aug 2021- Mild bilateral hydronephrosis and markedly distended urinary bladder without obstructing calculus. Correlate for urinary retention. has indwelling vargas since CT done last night reported Normal Kidneys - no mention of Hydronephrosis S/P sigmoid colectomy with end colostomy RUQ ,Repair of colovesical fistula . No ouput from Colostomy per patient and Nursing. General Surgery recommends transfer Hernia- moderate to large parastomal hernia contains ascites and multiple loops of the distal colon. Correlate for constipation as a cause of ostomy obstruction. Stenosis at the ostomy cannot be excluded by CT. Moderate to large ascites Anemia- stable Uterine Fibroids- Multiple pelvic masses most likely reflect uterine fibroids on CT on 10/07 . Transvaginal US 09/14/21- findings are concerning for endometrial carcinoma . Left ovary is enlarged associated with a 6.5 cm unilocular simple cyst, as well as increased soft tissue thickness of the ovary, raising concern for ovarian cystic neoplasm. ca 125 elevated as well COMMENT/RELEVANT DATA Meds Current Medications Medications (Trade) Dose Ordered Sig/Yvonne Start Time Stop Time Status Last Admin Dose Admin Fentanyl Citrate (Fentanyl 2ml Vial) 50 mcg PRN Q1HR PRN 10/07/21 22:15 10/08/21 22:14 DC Heparin Sodium (Porcine) (Heparin Sodium) 5,000 unit BID 10/08/21 09:00 10/10/21 10:53 5,000 UNIT Info (PHARMACY MONITORING -- do not chart) 1 each PRN DAILY PRN 10/09/21 10:30 Cancel Lidocaine HCl (Buffered Lidocaine 1%) 6 ml 1X ONCE 10/08/21 13:15 10/08/21 13:16 DC 10/08/21 13:15 3 ML Metoclopramide HCl (Reglan Vial) 10 mg 1X ONCE 10/07/21 16:45 10/07/21 16:46 DC 10/07/21 17:09 10 MG Ondansetron HCl (Zofran) 4 mg PRN Q8HRS PRN 10/07/21 22:30 Saliva Substitute (Biotene Moisturizing Mouth) 2 spray PRN Q15MIN PRN 10/07/21 22:30 Sodium Chloride 1,000 ml @ 400 mls/hr Q2H30M PRN 10/09/21 10:30 10/09/21 22:29 DC Lab Laboratory Tests Test 10/10/21 06:25 Sodium Level 139 mmol/L (136-145) Potassium Level 3.4 mmol/L (3.5-5.1) Chloride Level 100 mmol/L (98-107) Carbon Dioxide Level 24 mmol/L (21-32) Anion Gap 15 (6-14) Blood Urea Nitrogen 41 mg/dL (7-20) Creatinine 3.7 mg/dL (0.6-1.0) Estimated GFR (Cockcroft-Gault) 15.1 Glucose Level 72 mg/dL (70-99) Calcium Level 11.8 mg/dL (8.5-10.1) Results All relevant outside records, renal labs, imaging studies, telemetry/EKG's were reviewed. Justicifation of Admission Dx: Justifications for Admission: Justification of Admission Dx: Yes TERESA SIMONS MD Oct 10, 2021 13:06
--- NOTE | 2021-10-10 14:46 | PDOC ---
SURGICAL PROGRESS NOTE DATE: 10/10/21 TIME: 14:44 Subjective Pt somewhat improved, less pain, still bloated Vital Signs Vital Signs Date Time Temp Pulse Resp B/P (MAP) Pulse Ox O2 Delivery O2 Flow Rate FiO2 10/10/21 11:00 97.4 107 24 127/76 (93) 93 Room Air 97.4 I&O Intake and Output 10/10/21 07:00 Output Total 0 ml Balance 0 ml Output Urine Total 0 ml General: Alert, Cooperative, No acute distress Abdomen: Soft, No tenderness, Other (less distended, ostomy with flatus and stools) Labs Laboratory Tests Test 10/09/21 05:05 10/10/21 06:25 Sodium Level 139 mmol/L (136-145) 139 mmol/L (136-145) Potassium Level 4.0 mmol/L (3.5-5.1) 3.4 mmol/L (3.5-5.1) Chloride Level 98 mmol/L (98-107) 100 mmol/L (98-107) Carbon Dioxide Level 23 mmol/L (21-32) 24 mmol/L (21-32) Anion Gap 18 (6-14) 15 (6-14) Blood Urea Nitrogen 64 mg/dL (7-20) 41 mg/dL (7-20) Creatinine 6.0 mg/dL (0.6-1.0) 3.7 mg/dL (0.6-1.0) Estimated GFR (Cockcroft-Gault) 8.7 15.1 Glucose Level 81 mg/dL (70-99) 72 mg/dL (70-99) Calcium Level 13.4 mg/dL (8.5-10.1) 11.8 mg/dL (8.5-10.1) Phosphorus Level 6.4 mg/dL (2.6-4.7) Creatine Kinase 24 U/L (26-192) Albumin 2.2 g/dL (3.4-5.0) Laboratory Tests Test 10/10/21 06:25 Sodium Level 139 mmol/L (136-145) Potassium Level 3.4 mmol/L (3.5-5.1) Chloride Level 100 mmol/L (98-107) Carbon Dioxide Level 24 mmol/L (21-32) Anion Gap 15 (6-14) Blood Urea Nitrogen 41 mg/dL (7-20) Creatinine 3.7 mg/dL (0.6-1.0) Estimated GFR (Cockcroft-Gault) 15.1 Glucose Level 72 mg/dL (70-99) Calcium Level 11.8 mg/dL (8.5-10.1) Problem List Problems Medical Problems: (1) Abdominal pain Status: Acute (2) Acute renal failure Status: Acute (3) Hypercalcemia Status: Acute (4) Nausea and vomiting Status: Acute Assessment/Plan appears improved, will try clears pt is prohibitive surgical candidate, 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 Justicifation of Admission Dx: Justifications for Admission: Justification of Admission Dx: Yes MIC CALERO MD Oct 10, 2021 14:45
[2021-10-10 15:00] VITALS: BP 115/82
--- NOTE | 2021-10-10 17:48 | PDOC ---
[facility] PROGRESS NOTE Date of Service DOS: DATE: 10/10/21 TIME: 17:47 Chief Complaint Chief Complaint Assessment/Plan acute renal failure, vasomotor nephropathy, IV fluid given acute colon obstruction, on CT scan, consult who placed her ostomy for prior obstruction Hx elevated CEA, cystic ovarian mass, likley ovarian cancer with hypercalcemia microcytic anemia weakness, debility constipation Hx vitamin D deficiency History of Present Illness History of Present Illness 10/10 Patient evaluated examined at bedside. Alert oriented. Had just gotten dialysis cath placed going for dialysis today. . I had previously discussed Senior Manufacturing Supervisor Onc follow-up a month ago. Otherwise closely monitor renal function. Monitor ostomy output. Discussed with bedside RN. Vitals/I&O Vitals/I&O: Vital Signs Date Time Temp Pulse Resp B/P (MAP) Pulse Ox O2 Delivery O2 Flow Rate FiO2 10/10/21 15:00 97.7 114 32 115/82 (93) 95 Room Air 97.7 I & O 10/09/21 10/09/21 10/10/21 15:00 23:00 07:00 Output Total 0 ml Balance 0 ml Physical Exam General: Alert, Cooperative, No acute distress Heart: Regular rate, Normal S1, Normal S2 Lungs: Clear Abdomen: Soft, No tenderness, Other (less distended, ostomy with flatus and stools) Extremities: No clubbing, No cyanosis Skin: No rashes, No breakdown Labs Labs: Laboratory Tests Test 10/10/21 06:25 Sodium Level 139 mmol/L (136-145) Potassium Level 3.4 mmol/L (3.5-5.1) Chloride Level 100 mmol/L (98-107) Carbon Dioxide Level 24 mmol/L (21-32) Anion Gap 15 (6-14) Blood Urea Nitrogen 41 mg/dL (7-20) Creatinine 3.7 mg/dL (0.6-1.0) Estimated GFR (Cockcroft-Gault) 15.1 Glucose Level 72 mg/dL (70-99) Calcium Level 11.8 mg/dL (8.5-10.1) Assessment and Plan Assessmemt and Plan Problems Medical Problems: (1) Abdominal pain Status: Acute (2) Acute renal failure Status: Acute (3) Hypercalcemia Status: Acute (4) Nausea and vomiting Status: Acute Comment Review of Relevant I have reviewed the following items dionisio (where applicable) has been applied. Justifications for Admission Other Justification Hypercalcemia and hematuria LIZ SCHMITT MD Oct 10, 2021 17:48
[2021-10-10 19:00] VITALS: BP 115/79
[2021-10-10 23:34] VITALS: BP 107/73
[2021-10-11 03:23] VITALS: BP 111/67
[2021-10-11] MEDS: IV NORMAL SALINE 1000ML BAG 1,000 ML IV SCH ×2 (06:34→20:55)
[2021-10-11 07:15] VITALS: BP 107/73
[2021-10-11] MEDS: HEPARIN for SUB-Q USE 5,000 UNIT/ML VIAL. SQ SCH ×2 (09:00→20:57)
[2021-10-11] MEDS: NYSTATIN TOPICAL POWDER 15GM BOTTLE. TP SCH ×2 (11:03→20:55)
[2021-10-11 12:17] VITALS: BP 104/72
--- NOTE | 2021-10-11 13:17 | PDOC ---
DATE OF SERVICE DATE: 10/11/21 TIME: 13:13 SUBJECTIVE ROS No acute complaints No concerns voiced by nursing OBJECTIVE Vital Signs Vital Signs Date Time Temp Pulse Resp B/P (MAP) Pulse Ox O2 Delivery O2 Flow Rate FiO2 10/11/21 12:17 98.0 109 20 104/72 (83) 93 Room Air 98.0 I & 0 Intake and Output 10/11/21 07:00 Intake Total 270 ml Output Total 300 ml Balance -30 ml Intake Oral 270 ml Drainage Total 300 ml # Bowel Movements 1 PHYSICAL EXAM Physical Exam General: NAD HEENT: OM moist, On RA Neck Supple Lungs: Clear to auscultation, Non labored Heart: S1S2, RRR, Abdomen: Distended , Mild tender+ Extremities: No edema, Skin: No rashes, Neuro: Grossly Normal Vargas -since her recent admission , No CVA tenderness Psych Cooperative DIAGNOSIS/ASSESSMENT Assessment & Plan OSCAR -ATN , ? Ostomy Obstruction per CT reports , No Improvement in Renal function, Anuric .CT Abdomen reported Normal Kidneys .Started on Dialysis on 10/08 2nd treatment 10/09 ; Currently no indication for dialysis today . Schedule for tomorrow Access Temp HDc . Intermittent OSCAR - in 2017 and again Aug 2021- resolved at discharge , baseline Cr 0.7-0.9. HyperCalcemia- worse compared with recent admission associated with underlying Uterine/Ovarian malignancy and OSCAR , trended down some . Recommend Gynec Onc Defer to primary Hydronephrosis- ON CT abdomen Aug 2021- Mild bilateral hydronephrosis and markedly distended urinary bladder without obstructing calculus. Correlate for urinary retention. has indwelling vargas since CT done last night reported Normal Kidneys - no mention of Hydronephrosis S/P sigmoid colectomy with end colostomy RUQ ,Repair of colovesical fistula . Had some ouput from Colostomy now . General Surgery recommends transfer Hernia- moderate to large parastomal hernia contains ascites and multiple loops of the distal colon. Correlate for constipation as a cause of ostomy obstruction. Stenosis at the ostomy cannot be excluded by CT. Moderate to large ascites - Anemia- stable Uterine Fibroids- Multiple pelvic masses most likely reflect uterine fibroids on CT on 10/07 . Transvaginal US 09/14/21- findings are concerning for endometrial carcinoma . Left ovary is enlarged associated with a 6.5 cm unilocular simple cyst, as well as increased soft tissue thickness of the ovary, raising concern for ovarian cystic neoplasm. ca 125 elevated as well COMMENT/RELEVANT DATA Meds Current Medications Medications (Trade) Dose Ordered Sig/Yvonne Start Time Stop Time Status Last Admin Dose Admin Fentanyl Citrate (Fentanyl 2ml Vial) 50 mcg PRN Q1HR PRN 10/07/21 22:15 10/08/21 22:14 DC Heparin Sodium (Porcine) (Heparin Sodium) 5,000 unit BID 10/08/21 09:00 10/11/21 09:00 5,000 UNIT Info (PHARMACY MONITORING -- do not chart) 1 each PRN DAILY PRN 10/09/21 10:30 Cancel Lidocaine HCl (Buffered Lidocaine 1%) 6 ml 1X ONCE 10/08/21 13:15 10/08/21 13:16 DC 10/08/21 13:15 3 ML Metoclopramide HCl (Reglan Vial) 10 mg 1X ONCE 10/07/21 16:45 10/07/21 16:46 DC 10/07/21 17:09 10 MG Nystatin (Nystop) 1 francis BID 10/11/21 11:30 10/11/21 11:03 1 FRANCIS Ondansetron HCl (Zofran) 4 mg PRN Q8HRS PRN 10/07/21 22:30 Saliva Substitute (Biotene Moisturizing Mouth) 2 spray PRN Q15MIN PRN 10/07/21 22:30 Sodium Chloride 1,000 ml @ 400 mls/hr Q2H30M PRN 10/09/21 10:30 10/09/21 22:29 DC Results All relevant outside records, renal labs, imaging studies, telemetry/EKG's were reviewed. Justicifation of Admission Dx: Justifications for Admission: Justification of Admission Dx: Yes TERESA SIMONS MD Oct 11, 2021 13:17
--- NOTE | 2021-10-11 13:46 | PDOC ---
[facility] [facility] PROGRESS NOTE Date of Service DOS: DATE: 10/11/21 TIME: 13:45 Chief Complaint Chief Complaint Assessment/Plan acute renal failure, vasomotor nephropathy, IV fluid given acute colon obstruction, on CT scan, consult who placed her ostomy for prior obstruction Hx elevated CEA, cystic ovarian mass, likley ovarian cancer with hypercalcemia microcytic anemia weakness, debility constipation Hx vitamin D deficiency History of Present Illness History of Present Illness 10/11 lethargiic, weak will get HD should f/u Interface Developer Onc, did not do that a month ago as instructed 10/10 Patient evaluated examined at bedside. Alert oriented. Had just gotten dialysis cath placed going for dialysis today. . I had previously discussed Interface Developer Onc follow-up a month ago. Otherwise closely monitor renal function. Monitor ostomy output. Discussed with bedside RN. Vitals/I&O Vitals/I&O: Vital Signs Date Time Temp Pulse Resp B/P (MAP) Pulse Ox O2 Delivery O2 Flow Rate FiO2 10/11/21 12:17 98.0 109 20 104/72 (83) 93 Room Air 98.0 I & O 10/10/21 10/10/21 10/11/21 15:00 23:00 07:00 Intake Total 0 ml 240 ml 30 ml Output Total 300 ml 0 ml Balance -300 ml 240 ml 30 ml Physical Exam General: Alert, Cooperative, No acute distress Heart: Regular rate, Normal S1, Normal S2 Lungs: Clear Abdomen: Soft, No tenderness, Other (less distended, ostomy with flatus and stools) Extremities: No clubbing, No cyanosis Skin: No rashes, No breakdown Assessment and Plan Assessmemt and Plan Problems Medical Problems: (1) Abdominal pain Status: Acute (2) Acute renal failure Status: Acute (3) Hypercalcemia Status: Acute (4) Nausea and vomiting Status: Acute Comment Review of Relevant I have reviewed the following items dionisio (where applicable) has been applied. Medications: Current Medications Medications (Trade) Dose Ordered Sig/Yvonne Route PRN Reason Start Time Stop Time Status Last Admin Dose Admin Nystatin (Nystop) 1 francis BID TP 10/11/21 11:30 10/11/21 11:03 Justifications for Admission Other Justification Hypercalcemia and hematuria LIZ SCHMITT MD Oct 11, 2021 13:46
--- NOTE | 2021-10-11 14:33 | PDOC ---
SURGICAL PROGRESS NOTE DATE: 10/11/21 TIME: 14:32 Subjective Pt reports not feeling well, bloated Vital Signs Vital Signs Date Time Temp Pulse Resp B/P (MAP) Pulse Ox O2 Delivery O2 Flow Rate FiO2 10/11/21 12:17 98.0 109 20 104/72 (83) 93 Room Air 98.0 I&O Intake and Output 10/11/21 07:00 Intake Total 270 ml Output Total 300 ml Balance -30 ml Intake Oral 270 ml Drainage Total 300 ml # Bowel Movements 1 General: Alert, mild distress Abdomen: Other (distended abd with parastomal hernia, min output today) Labs Laboratory Tests Test 10/10/21 06:25 Sodium Level 139 mmol/L (136-145) Potassium Level 3.4 mmol/L (3.5-5.1) Chloride Level 100 mmol/L (98-107) Carbon Dioxide Level 24 mmol/L (21-32) Anion Gap 15 (6-14) Blood Urea Nitrogen 41 mg/dL (7-20) Creatinine 3.7 mg/dL (0.6-1.0) Estimated GFR (Cockcroft-Gault) 15.1 Glucose Level 72 mg/dL (70-99) Calcium Level 11.8 mg/dL (8.5-10.1) Problem List Problems Medical Problems: (1) Abdominal pain Status: Acute (2) Acute renal failure Status: Acute (3) Hypercalcemia Status: Acute (4) Nausea and vomiting Status: Acute Assessment/Plan agree with plans for eval by concession stand attendant onc suspect this may be fatal event consider palliative care evaluation. prohibitive surgical candidate. Justicifation of Admission Dx: Justifications for Admission: Justification of Admission Dx: Yes MIC CALEOR MD Oct 11, 2021 14:33
[2021-10-11 15:30] VITALS: BP 110/75
[2021-10-11 19:00] VITALS: BP 99/73
[2021-10-11 23:26] VITALS: BP 96/69
[2021-10-12] VITALS (10 sets, daily range): BP systolic 65–110; BP diastolic 27–79
[2021-10-12] MEDS: IV NORMAL SALINE 1000ML BAG 1,000 ML IV SCH (05:14)
[2021-10-12 07:36] LABS: ALBUMIN 1.4 g/dL (3.4-5.0); CREATININE 4.7 mg/dL (0.6-1.0); GFR 11.5; PHOSPHORUS 6.8 mg/dL (2.6-4.7); POTASSIUM 3.8 mmol/L (3.5-5.1)
[2021-10-12 07:38] LABS: CALCIUM 12.4 mg/dL (8.5-10.1)
[2021-10-12] MEDS: HEPARIN for SUB-Q USE 5,000 UNIT/ML VIAL. SQ SCH (09:00)
[2021-10-12] MEDS: NYSTATIN TOPICAL POWDER 15GM BOTTLE. TP SCH (09:03)
[2021-10-12 09:30] LABS: PROTHROMBIN TIME PATIENT 15.3 SEC (11.7-14.0)
--- NOTE | 2021-10-12 10:19 | PDOC ---
SURGICAL PROGRESS NOTE DATE: 10/12/21 TIME: 10:16 Subjective resting ongoing pain Vital Signs Vital Signs Date Time Temp Pulse Resp B/P (MAP) Pulse Ox O2 Delivery O2 Flow Rate FiO2 10/12/21 08:00 Room Air 10/12/21 07:00 98.0 101 16 106/79 (88) 85 98.0 I&O Intake and Output 10/12/21 07:00 Intake Total 180 ml Output Total 0 ml Balance 180 ml Intake Oral 180 ml Output Urine Total 0 ml # Bowel Movements 2 General: Cooperative Abdomen: Soft, Other (distended, some ostomy output today ) Labs Laboratory Tests Test 10/12/21 06:35 10/12/21 08:45 Sodium Level 143 mmol/L (136-145) Potassium Level 3.8 mmol/L (3.5-5.1) Chloride Level 104 mmol/L (98-107) Carbon Dioxide Level 19 mmol/L (21-32) Anion Gap 20 (6-14) Blood Urea Nitrogen 66 mg/dL (7-20) Creatinine 4.7 mg/dL (0.6-1.0) Estimated GFR (Cockcroft-Gault) 11.5 Glucose Level 89 mg/dL (70-99) Calcium Level 12.4 mg/dL (8.5-10.1) Phosphorus Level 6.8 mg/dL (2.6-4.7) Albumin 1.4 g/dL (3.4-5.0) Prothrombin Time 15.3 SEC (11.7-14.0) Prothromb Time International Ratio 1.2 (0.8-1.1) Laboratory Tests Test 10/12/21 06:35 10/12/21 08:45 Sodium Level 143 mmol/L (136-145) Potassium Level 3.8 mmol/L (3.5-5.1) Chloride Level 104 mmol/L (98-107) Carbon Dioxide Level 19 mmol/L (21-32) Anion Gap 20 (6-14) Blood Urea Nitrogen 66 mg/dL (7-20) Creatinine 4.7 mg/dL (0.6-1.0) Estimated GFR (Cockcroft-Gault) 11.5 Glucose Level 89 mg/dL (70-99) Calcium Level 12.4 mg/dL (8.5-10.1) Phosphorus Level 6.8 mg/dL (2.6-4.7) Albumin 1.4 g/dL (3.4-5.0) Prothrombin Time 15.3 SEC (11.7-14.0) Prothromb Time International Ratio 1.2 (0.8-1.1) Problem List Problems Medical Problems: (1) Abdominal pain Status: Acute (2) Acute renal failure Status: Acute (3) Hypercalcemia Status: Acute (4) Nausea and vomiting Status: Acute Assessment/Plan supportive care no surgical plans needs supervisor roller printing/onc eval possible palliative eval chart, round 15 min Justicifation of Admission Dx: Justifications for Admission: Justification of Admission Dx: Yes DARIAN JOHNSON APRN Oct 12, 2021 10:18
[2021-10-12] MEDS ORDERED: DIALYSIS PATIENT. MC PRN ×2 (10:30)
[2021-10-12] MEDS ORDERED: IV NORMAL SALINE 1000ML BAG 1,000 ML IV PRN ×2 (10:30)
[2021-10-12] MEDS ORDERED: EPINEPHrine 1 MG/ML VIAL ONE (10:43)
[2021-10-12] MEDS ORDERED: NOREPINEPHRINE VIAL 8 MG in IV DEXTROSE 5% 250 ML IV PRN (10:45)
[2021-10-12] MEDS ORDERED: EPINEPHrine 1 MG/ML VIAL SQ ONE (11:00)
[2021-10-12] MEDS ORDERED: SODIUM BICARB ADULT 8.4% 50 MEQ/50 ML DISP.SYRIN. ONE (11:00)
[2021-10-12] MEDS ORDERED: EPINEPHrine VIAL 5 MG in IV NORMAL SALINE 250ML 250 ML IV PRN (11:00)
[2021-10-12] MEDS ORDERED: EPINEPHrine SYRINGE 1 MG/10 ML SYRINGE. ONE (11:00)
[2021-10-12] MEDS ORDERED: SODIUM BICARB ADULT 8.4% 50 MEQ/50 ML DISP.SYRIN. IV ONE (11:00)
--- NOTE | 2021-10-12 11:01 | PDOC ---
[facility] [facility] PROGRESS NOTE Date of Service DOS: DATE: 10/12/21 TIME: 10:58 Chief Complaint Chief Complaint Assessment/Plan acute renal failure, vasomotor nephropathy, IV fluid given acute colon obstruction, on CT scan, consult who placed her ostomy for prior obstruction Hx elevated CEA, cystic ovarian mass, likley ovarian cancer with hypercalcemia microcytic anemia weakness, debility constipation Hx vitamin D deficiency History of Present Illness History of Present Illness 10/12 Evaluated examined at bedside. Was resting in bed. Lethargic. Patient had a CODE BLUE event shortly after I was in the room. PEA arrest. Contacted family member immediately about wishes for care given all her comorbidities. She said she would like to give the patient best chance possible with intubation and CPR. She does understand however if patient cannot be brought back. ROSC was able to be achieved and patient transferred down to ICU. Informed family member about the situation. Family did want CPR performed again if she has another CODE BLUE event. We will further discuss with family when they are at bedside. 45 minutes critical care time 10/11 lethargiic, weak will get HD should f/u Liquor Gallery Operator Onc, did not do that a month ago as instructed 10/10 Patient evaluated examined at bedside. Alert oriented. Had just gotten dialysis cath placed going for dialysis today. . I had previously discussed Liquor Gallery Operator Onc follow-up a month ago. Otherwise closely monitor renal function. Monitor ostomy output. Discussed with bedside RN. Vitals/I&O Vitals/I&O: Vital Signs Date Time Temp Pulse Resp B/P (MAP) Pulse Ox O2 Delivery O2 Flow Rate FiO2 10/12/21 10:30 99 Ventilator 10/12/21 07:00 98.0 101 16 106/79 (88) 98.0 I & O 10/11/21 10/11/21 10/12/21 15:00 23:00 07:00 Intake Total 120 ml 60 ml Output Total 0 ml Balance 120 ml 60 ml Physical Exam General: Cooperative Heart: Regular rate, Normal S1, Normal S2 Lungs: Clear Abdomen: Soft, Other (distended, some ostomy output today ) Extremities: No clubbing, No cyanosis Skin: No rashes, No breakdown Labs Labs: Laboratory Tests Test 10/12/21 06:35 10/12/21 08:45 Sodium Level 143 mmol/L (136-145) Potassium Level 3.8 mmol/L (3.5-5.1) Chloride Level 104 mmol/L (98-107) Carbon Dioxide Level 19 mmol/L (21-32) Anion Gap 20 (6-14) Blood Urea Nitrogen 66 mg/dL (7-20) Creatinine 4.7 mg/dL (0.6-1.0) Estimated GFR (Cockcroft-Gault) 11.5 Glucose Level 89 mg/dL (70-99) Calcium Level 12.4 mg/dL (8.5-10.1) Phosphorus Level 6.8 mg/dL (2.6-4.7) Albumin 1.4 g/dL (3.4-5.0) Prothrombin Time 15.3 SEC (11.7-14.0) Prothromb Time International Ratio 1.2 (0.8-1.1) Assessment and Plan Assessmemt and Plan Problems Medical Problems: (1) Abdominal pain Status: Acute (2) Acute renal failure Status: Acute (3) Hypercalcemia Status: Acute (4) Nausea and vomiting Status: Acute Comment Review of Relevant I have reviewed the following items dionisio (where applicable) has been applied. Medications: Current Medications Medications (Trade) Dose Ordered Sig/Yvonne Route PRN Reason Start Time Stop Time Status Last Admin Dose Admin Nystatin (Nystop) 1 francis BID TP 10/11/21 11:30 10/12/21 09:03 Justifications for Admission Other Justification Hypercalcemia and hematuria RUBIN JACK MD Oct 12, 2021 11:01
[2021-10-12 11:21] LABS: BASE EXCESS ABG -11 mmol/L (-3-3); HCO3 ABG 19 mmol/L (21-28); PO2 ABG 62 mmHg (65-108); SAT O2 ABG 74 % (92-99)
--- NOTE | 2021-10-12 11:22 | PDOC ---
Renal-Progress Notes Subjective Notes Notes INTUBATED History of Present Illness Hx of present illness CODE BLUE THIS AM Vitals Vitals Vital Signs Date Time Temp Pulse Resp B/P (MAP) Pulse Ox O2 Delivery O2 Flow Rate FiO2 10/12/21 10:30 99 Ventilator 10/12/21 07:00 98.0 101 16 106/79 (88) 98.0 Weight Weight [ ] I.O. Intake and Output Intake and Output 10/12/21 07:00 Intake Total 180 ml Output Total 0 ml Balance 180 ml Intake Oral 180 ml Output Urine Total 0 ml # Bowel Movements 2 Labs Labs Laboratory Tests Test 10/12/21 06:35 10/12/21 08:45 Sodium Level 143 mmol/L (136-145) Potassium Level 3.8 mmol/L (3.5-5.1) Chloride Level 104 mmol/L (98-107) Carbon Dioxide Level 19 mmol/L (21-32) Anion Gap 20 (6-14) Blood Urea Nitrogen 66 mg/dL (7-20) Creatinine 4.7 mg/dL (0.6-1.0) Estimated GFR (Cockcroft-Gault) 11.5 Glucose Level 89 mg/dL (70-99) Calcium Level 12.4 mg/dL (8.5-10.1) Phosphorus Level 6.8 mg/dL (2.6-4.7) Albumin 1.4 g/dL (3.4-5.0) Prothrombin Time 15.3 SEC (11.7-14.0) Prothromb Time International Ratio 1.2 (0.8-1.1) Micro Micro Microbiology 10/07/21 Blood Culture - Preliminary, Resulted NO GROWTH AFTER 4 DAYS Review of Systems Constitutional: yes: unresponsive Physical Exam General Appearance: other (ON THE VENT) Skin: warm Respiratory: decreased breath sounds Heart: S1S2, other (TACHY) Abdomen: distension, other (NO BS) Genitourinary: bladder flat, vargas catheter Extremities: no edema Neurology: other (SEDATED) Assessment Assessment IMP OSCAR-GALINDO HYPERCALCEMIA ELEVATED CEA, OVARIAN MASS MULTIPLE PELVIC MASS BOWEL OBSTRUCTION-S/P OSTOMY ASCITES PROB MALIGNANT MALNUTRTION ANEMIA S/P CODE BLUE THIS AM WITH ASYSTOLE ACUTE HYPOXIC RESP FAILURE SEVERE HYPOTENSION PLAN PT WAS TO GET HD TODAY FOR HER OSCAR CURRENTLY DO NOT RECOMMEND DIALYSIS SHE IS TOO UNSTABLE SBP OF ABOUT 70-75 WITH MUTLIPLE PRESSORS HCO3 GIVEN ON VENT NOW SAW PT AT BEDSIDE IN ER D/W ATTENDING I SUGGEST WITHDRAWAL OF CARE TERMINAL PROGNOSIS WILL FOLLOW Anemia- stable Uterine Fibroids- Multiple pelvic masses most likely reflect uterine fibroids on CT on 10/07 . Transvaginal US 09/14/21- findings are concerning for endomet rial carcinoma . Left ovary is enlarged associated with a 6.5 cm unilocular simple cyst, as well as increased soft tissue thickness of the ovary, raising concern for ovarian cystic neoplasm. ca 125 elevated as well JANNETTE VELASCO MD Oct 12, 2021 11:22
--- NOTE | 2021-10-12 11:24 | NUR ---
SW following. Discussed with RN, pt had code blue event. Transferring for ICU level of care. Hansa (CECILY) will continue to follow. Physician to address goals of care with family when at bedside. SW will continue to follow.
[2021-10-12 11:28] LABS: FIO2 ABG 100; PCO2 ABG 74 mmHg (35-46)
--- NOTE | 2021-10-12 11:30 | NUR ---
At approximately 0950 the aide was calling from the room and asked for the nurse to hurry and come to the room. This RN went into the room and saw that the aide was holding the bucket with black looking vomit in there. This RN couldnt feel a pulse and checked the tele which showed bradycardia and was going lower. This RN ran back into the room and pressed the code blue button and compressions started at approximately 0952. Patient was alert and oriented earlier in the morning and even signed consents for a paracentesis.
--- NOTE | 2021-10-12 11:54 | PHYS DOC ---
Past Medical History Past Medical History: No Pertinent History Additional Past Medical Histor: Colostomy Past Surgical History: Other Additional Past Surgical Histo: colostomy Smoking Status: Never Smoker Alcohol Use: None Drug Use: None Adult General Chief Complaint Chief Complaint: NAUSEA/VOMITING/DIARRHEA HPI HPI Patient is a 61 year old f Review of Systems Review of Systems Current Medications Current Medications Current Medications Medications (Trade) Dose Ordered Sig/Yvonne Start Time Stop Time Status Last Admin Dose Admin Metoclopramide HCl (Reglan Vial) 10 mg 1X ONCE 10/07/21 16:45 10/07/21 16:46 DC 10/07/21 17:09 10 MG Sodium Chloride 1,000 ml @ 1,000 mls/hr 1X ONCE 10/07/21 16:45 10/07/21 17:44 DC 10/07/21 18:04 1,000 MLS/HR Allergies Allergies Allergies Coded Allergies Type Severity Reaction Last Updated Verified No Known Drug Allergies 08/08/18 No Current Patient Data Vital Signs Vital Signs Date Time Temp Pulse Resp B/P (MAP) Pulse Ox O2 Delivery O2 Flow Rate FiO2 10/07/21 17:49 106 20 121/100 (107) 98 Room Air 10/07/21 16:06 96.9 96.9 Lab Values Laboratory Tests Test 10/07/21 16:59 White Blood Count 11.1 x10^3/uL (4.0-11.0) H Red Blood Count 4.15 x10^6/uL (3.50-5.40) Hemoglobin 10.9 g/dL (12.0-15.5) L Hematocrit 35.8 % (36.0-47.0) L Mean Corpuscular Volume 86 fL (79-100) Mean Corpuscular Hemoglobin 26 pg (25-35) Mean Corpuscular Hemoglobin Concent 30 g/dL (31-37) L Red Cell Distribution Width 23.2 % (11.5-14.5) H Platelet Count 538 x10^3/uL (140-400) H Neutrophils (%) (Auto) 93 % (31-73) H Lymphocytes (%) (Auto) 3 % (24-48) L Monocytes (%) (Auto) 4 % (0-9) Eosinophils (%) (Auto) 0 % (0-3) Basophils (%) (Auto) 0 % (0-3) Neutrophils # (Auto) 10.3 x10^3/uL (1.8-7.7) H Lymphocytes # (Auto) 0.3 x10^3/uL (1.0-4.8) L Monocytes # (Auto) 0.5 x10^3/uL (0.0-1.1) Eosinophils # (Auto) 0.0 x10^3/uL (0.0-0.7) Basophils # (Auto) 0.0 x10^3/uL (0.0-0.2) Segmented Neutrophils % 94 % (35-66) H Lymphocytes % 3 % (24-48) L Monocytes % 3 % (0-10) Platelet Estimate Increased (ADEQUATE) Polychromasia Slight Anisocytosis Mod Ovalocytes Few Canute Cells Few RBC Morphology Bizarre Forms Occ Sodium Level 135 mmol/L (136-145) L Potassium Level 4.9 mmol/L (3.5-5.1) Chloride Level 90 mmol/L (98-107) L Carbon Dioxide Level 21 mmol/L (21-32) Anion Gap 24 (6-14) H Blood Urea Nitrogen 89 mg/dL (7-20) H Creatinine 7.9 mg/dL (0.6-1.0) H Estimated GFR (Cockcroft-Gault) 6.3 BUN/Creatinine Ratio 11 (6-20) Glucose Level 99 mg/dL (70-99) Lactic Acid Level 2.6 mmol/L (0.4-2.0) H Calcium Level 14.3 mg/dL (8.5-10.1) *H Total Bilirubin 0.3 mg/dL (0.2-1.0) Aspartate Amino Transferase (AST) 18 U/L (15-37) Alanine Aminotransferase (ALT) 7 U/L (14-59) L Alkaline Phosphatase 101 U/L (46-116) Creatine Kinase 60 U/L (26-192) Total Protein 8.2 g/dL (6.4-8.2) Albumin 2.9 g/dL (3.4-5.0) L Albumin/Globulin Ratio 0.5 (1.0-1.7) L Lipase 36 U/L (73-393) L Procalcitonin 3.87 ng/mL (0.00-0.10) H Laboratory Tests 10/07/21 16:59 Laboratory Tests 10/07/21 16:59 Microbiology 10/07/21 Blood Culture - Preliminary, Resulted NO GROWTH AFTER 4 DAYS EKG EKG [] Radiology/Procedures Radiology/Procedures [] Course & Med Decision Making Course & Med Decision Making I responded to an overhead CODE BLUE at approximately 10 AM. Patient was in hospital room 562. She was asystolic and was being bagged with bag valve mask device. I was unable to obtain a pulse and the rhythm strip was indeed consistent with asystole. She was given epi and bicarb on my arrival, she was also given 1 epi prior to my arrival. After being given the epi and bicarb CPR was restarted meds of circulated. She then went to a PEA rhythm with a bradycardic rate of about 30. Again this was pulseless. She was given another epi and another bicarb. Endotracheal intubation was performed by me. 7 oh tube was used successfully passed on first attempt. This was concerned confirmed with end-tidal CO2 as well as lung auscultation. Shortly after that patient did have a return of spontaneous circulation. I believe we have given her 1 additional epi and 1 additional bicarb prior to this. She will be transferred to the intensive care unit for further postresuscitative management. Dragon Disclaimer Dragon Disclaimer This electronic medical record was generated, in whole or in part, using a voice recognition dictation system. Departure Departure Impression: Primary Impression: Abdominal pain Additional Impressions: Acute renal failure Nausea and vomiting Hypercalcemia Disposition: ADMITTED INPATIENT Condition: STABLE Referrals: NO PCP (PCP) Problem Qualifiers Primary Impression: Abdominal pain Abdominal location: right upper quadrant Qualified Codes: R10.11 - Right upper quadrant pain Additional Impressions: Acute renal failure Acute renal failure type: unspecified Qualified Codes: N17.9 - Acute kidney failure, unspecified Nausea and vomiting Vomiting type: unspecified Qualified Codes: R11.2 - Nausea with vomiting, unspecified CHICHO ALAN MD Oct 12, 2021 11:54
--- NOTE | 2021-10-12 13:08 | PDOC3 ---
[facility]-Discharge Summary Date of Admission: Date of Admission: Oct 07, 2021 Date of Discharge: Date of Discharge: Oct 12, 2021 Admission Diagnosis: Problems: (1) Abdominal pain (2) Nausea and vomiting (3) Acute renal failure (4) Hypercalcemia (5) Colovesical fistula Hospital Course: Hospital Course: Chief Complaint Assessment/Plan acute renal failure, vasomotor nephropathy, IV fluid given acute colon obstruction, on CT scan, consult who placed her ostomy for prior obstruction Hx elevated CEA, cystic ovarian mass, likley ovarian cancer with hypercalcemia microcytic anemia weakness, debility constipation Hx vitamin D deficiency History of Present Illness History of Present Illness 10/12 Evaluated examined at bedside. Was resting in bed. Lethargic. Patient had a CODE BLUE event shortly after I was in the room. PEA arrest. Contacted family member immediately about wishes for care given all her comorbidities. She said she would like to give the patient best chance possible with intubation and CPR. She does understand however if patient cannot be brought back. ROSC was able to be achieved and patient transferred down to ICU. Informed family member about the situation. Family did want CPR performed again if she has another CODE BLUE event. We will further discuss with family when they are at bedside. 45 minutes critical care time Family arrived at bedside and given prognosis elected to withdraw care. Patient at that time was on 2 pressors and still hypotensive. Saturating in the 50s despite intubation. Care was withdrawn and she at 1145. 10/11 lethargiic, weak will get HD should f/u [facility], did not do that a month ago as instructed 10/10 Patient evaluated examined at bedside. Alert oriented. Had just gotten dialysis cath placed going for dialysis today. . I had previously discussed [facility] follow-up a month ago. Otherwise closely monitor renal function. Monitor ostomy output. Discussed with bedside RN. Disposition: Disposition/Orders: Activity: Activity: Resume previous activity Medications: Home Meds Active Scripts Ferrous Sulfate (FEOSOL) 325 Mg Tablet, 325 MG PO DAILYWBKFT for iron deficient, #100 TAB Prov:LIZ SCHMITT MD 09/15/21 Polyethylene Glycol 3350 (POLYETHYLENE GLYCOL 3350) 17 Gm Powd.pack, 17 GM PO DAILY for prevent constipation, #30 PKT Prov:LIZ SCHMITT MD 09/15/21 Ergocalciferol (Vitamin D2) (Vitamin D2) 1,250 Mcg Capsule, 79227 UNIT PO WEEKLY for vitamin D replacement, #7 CAP Prov:LIZ SCHMITT MD 09/15/21 Scheduled Ergocalciferol (Vitamin D2) (Vitamin D2), 50,000 UNIT PO WEEKLY Ferrous Sulfate (Feosol), 325 MG PO DAILYWBKFT Polyethylene Glycol 3350 (Polyethylene Glycol 3350), 17 GM PO DAILY Justicifation of Admission Dx: Justifications for Admission: Justification of Admission Dx: Yes RUBIN JACK MD Oct 12, 2021 13:08
== END 2021-10-12 11:45 | DRG 682 ==
LOC: ER 16:06 → 5 SOUTH 17:08 → ED HOLD 18:34 → 5 SOUTH 20:21
PROVIDERS: ADMIT Internal Medicine; ATTEND Internal Medicine
PROC: 02HV33Z Insertion of Infusion Device into Superior Vena Cava, Percutaneous Approach (ICD-10-PCS; principal; 2021-10-08)
PROC: B548ZZA Ultrasonography of Superior Vena Cava, Guidance (ICD-10-PCS; 2021-10-08)
PROC: 5A1D70Z Performance of Urinary Filtration, Intermittent, Less than 6 Hours Per Day (ICD-10-PCS; 2021-10-08)
PROC: 5A1D70Z Performance of Urinary Filtration, Intermittent, Less than 6 Hours Per Day (ICD-10-PCS; 2021-10-09)
PROC: 5A1935Z Respiratory Ventilation, Less than 24 Consecutive Hours (ICD-10-PCS; 2021-10-12)
PROC: 0BH17EZ Insertion of Endotracheal Airway into Trachea, Via Natural or Artificial Opening (ICD-10-PCS; 2021-10-12)
PROC: 5A12012 Performance of Cardiac Output, Single, Manual (ICD-10-PCS; 2021-10-12)
PROC: 5A1D70Z Performance of Urinary Filtration, Intermittent, Less than 6 Hours Per Day (ICD-10-PCS; 2021-10-12)
DX: N17.0 Acute kidney failure with tubular necrosis (principal); J96.01 Acute respiratory failure with hypoxia; N32.1 Vesicointestinal fistula; R18.8 Other ascites; D50.9 Iron deficiency anemia, unspecified; E83.52 Hypercalcemia; I46.9 Cardiac arrest, cause unspecified; K43.5 Parastomal hernia without obstruction or gangrene; Z20.822 Contact with and (suspected) exposure to COVID-19; K44.9 Diaphragmatic hernia without obstruction or gangrene; N83.9 Noninflammatory disorder of ovary, fallopian tube and broad ligament, unspecified; Z90.49 Acquired absence of other specified parts of digestive tract; Z93.3 Colostomy status; I95.9 Hypotension, unspecified; R53.81 Other malaise; K59.00 Constipation, unspecified; R73.9 Hyperglycemia, unspecified; D25.9 Leiomyoma of uterus, unspecified
CPT/HCPCS: 36415; 36556; 36600; 51702; 71045; 74176; 76937; 80048; 80053; 80069; 82310; 82550; 82805; 83605; 83690; 83735; 84100; 84145; 85007; 85025; 85610; 86317; 86706; 87040; 87340; 87426; 94002; C1892; J0171; J1644; J2765; J3490; J7030; J7050; J7060; U0003; 99285-25; G0378